=== PATIENT | female | born 1945 | race Caucasian/White ===

== ENCOUNTER 2018-06-28 14:24 | Inpatient (IN) | payer OTHER ==
[2018-06-28] MEDS ORDERED: FUROSEMIDE 40 MG/4 ML VIAL IV ONE (18:00)
[2018-06-28 18:58] LABS: Urine Appearance CLEAR; Urine Bilirubin NEGATIVE (NEG); Urine Blood TRACE (NEG); Urine Color YELLOW; Urine Glucose NEGATIVE (NEG); Urine Protein NEGATIVE (NEG); Urine Specific Gravity 1.015 (1.005-1.030); Urine Urobilinogen 0.2 mg/dL (0.2-1.0)
[2018-06-28] MEDS ORDERED: INFLUENZA VACCINE (for 3y+) 0.5 ML DOSE IMVAC ONE (19:00)
[2018-06-28 19:13] LABS: Urine Microscopic Reflex NO UMIC
[2018-06-28 19:36] LABS: Absolute Lymphocytes (CBC) 3.1 K/uL (0.7-4.9); Absolute Monocytes 0.8 K/uL (0.1-1.3); Basophils % 0.8 % (0-1.3); Eosinophils % 1.5 % (0-4.4); Hematocrit 42.2 % (36.0-45.0); Lymphocytes % 28.1 % (15.3-44.8); MPV 8.5 fL (7.6-11.3); Monocytes % 7.3 % (3.3-12.3); RBC Red Blood Cell Count 4.56 M/uL (3.86-4.86)
[2018-06-28 19:59] LABS: Albumin 3.5 g/dL (3.4-5.0); Bilirubin Total 0.6 mg/dL (0.2-1.0); Potassium 4.2 mmol/L (3.5-5.1); Protein, Total 7.9 g/dL (6.4-8.2)
[2018-06-28] MEDS: ENOXAPARIN 30 MG/0.3 ML SQ SCH (22:08)
[2018-06-29] MEDS ORDERED: ACETAMINOPHEN 500 MG TAB PO PRN ×3 (06:17→17:46)
[2018-06-29] MEDS: LOSARTAN POTASSIUM 50 MG TABLET PO SCH (08:39)
[2018-06-29] MEDS: CARVEDILOL 12.5 MG TAB PO SCH ×2 (10:42→16:43)
[2018-06-29] MEDS: FUROSEMIDE 40 MG TABLET PO SCH (16:42)
[2018-06-29] MEDS ORDERED: ENOXAPARIN 30 MG/0.3 ML SQ ONE (16:50)
[2018-06-29] MEDS ORDERED: FUROSEMIDE 40 MG/4 ML VIAL IV ONE (17:49)
[2018-06-29] MEDS ORDERED: POTASSIUM CL SA 10 MEQ TAB PO ONE (17:50)
[2018-06-29] MEDS: ACETAMINOPHEN 500 MG TAB PO PRN (18:05)
--- NOTE | 2018-06-29 21:15 | HP ---
Date of Admission: 06/28/2018 Chief Complaint: Shortness of breath, swelling of the feet. History Of Present Illness: A 73-year-old female was brought to the office with new onset of swellin g of the feet and shortness of breath as well as orthopnea. She recently had an episode of viral inf ection. The patient had outpatient chest x-ray showed evidence of heart failure. The patient is admitted. N o chest pain, fever, chills, rigors. Past Medical History: Positive for hypertension and morbid obesity. Family History: Hypertension present. Personal History: Nonsmoker. Home Medicines: Toprol and Cozaar. Review of Systems: No history of fever, chills, rigors. Physical Examination: General: Revealed a 73-year-old morbid female, in [id number] respiratory distress. HEENT: Negative. Vital Signs: Normal. Neck: Supple. JVD negative. Chest: Bilateral scattered wheezes and crackles. Heart: Regular. Abdomen: Soft. Extremities: Bilateral pedal edema with erythema secondary to stretching of the skin. Laboratory Data: White count normal. Chest x-ray, pulmonary edema. Assessment: 1.Possible congestive heart failure. 2.Hypertension. Plan: Pending the echocardiogram report. The patient received IV Lasix and carvedilol. After Cardi ology consultation further management will be planned. YAMILEX/PRASHANTH Voice ID: [id number]
[2018-06-29] MEDS: ENOXAPARIN 30 MG/0.3 ML SQ SCH (21:26)
[2018-06-30] MEDS: ACETAMINOPHEN 500 MG TAB PO PRN ×3 (01:20→21:49)
[2018-06-30] MEDS: CARVEDILOL 12.5 MG TAB PO SCH ×2 (06:09→17:33)
[2018-06-30] MEDS: FUROSEMIDE 40 MG TABLET PO SCH (09:07)
[2018-06-30] MEDS: LOSARTAN POTASSIUM 50 MG TABLET PO SCH (09:08)
[2018-06-30] MEDS ORDERED: LOPERAMIDE HCL 2 MG CAPSULE PO PRN (14:36)
[2018-06-30] MEDS ORDERED: FUROSEMIDE 40 MG/4 ML VIAL IV ONE (15:52)
[2018-06-30] MEDS ORDERED: POTASSIUM 25 MEQ EFFERV TAB PO ONE (15:53)
[2018-06-30] MEDS ORDERED: POTASSIUM 25 MEQ EFFERV TAB ONE (17:52)
[2018-06-30] MEDS ORDERED: FUROSEMIDE 40 MG/4 ML VIAL ONE (17:52)
[2018-06-30] MEDS: ENOXAPARIN 30 MG/0.3 ML SQ SCH (20:34)
--- NOTE | 2018-07-01 02:55 | CON ---
Date of Consultation: 06/29/[address] Medrano's service on 06/28/2018. I saw the patient on 06/29/2018. Reason For Consultation: Congestive heart failure. History Of Present Illness: is a 73-year-old white woman who has been fairly healthy ex cept for hypertension. She takes losartan and metoprolol for that. Has had a recent flu episode wit h cough, fever, chills, body aches that has been going on for few days. She came in with PND, orthop peace, pedal edema. Chest x-ray shows CHF. Her BNP was 622. White count was 11,000. She had a marisel l echocardiogram in 2013. The echocardiogram that I read on 06/28/2018 was also within normal limits with normal ejection fraction and maybe some decreased left ventricular compliance that is mild. Th ere was no effusion. Past Medical History: Includes hypertension. Allergies: SHE IS ALLERGIC TO CODEINE AND PENICILLIN. Review of Systems: Negative. Social History: Negative for tobacco, alcohol, or drugs. Family History: Positive for hypertension. Medications: Include losartan and metoprolol. Physical Examination: General: was in no acute distress when I saw her. She has improved as far as her pedal edema is concerned and shortness of breath, but she has still slightly short of breath. She is stil l having some cough but that has improved. Vital Signs: Stable, afebrile. HEENT: Negative. Neck: Supple with no bruit, lymphadenopathy, JVD, or thyromegaly. Chest: Reveals some rales at both bases. Cardiac: Reveals a regular rhythm and rate with an S4 gall op. No murmurs, no rubs. Abdomen: Obese, but normal. Extremities: Revealed 1+ edema to the knees. Diagnostic Data: Listed earlier. She has a negative troponin. Normal kidney function. Impression And Plan: Acute onset of diastolic congestive heart failure, may have been exacerbated by her recent viral illness and her hypertension. I will continue her present regimen. Increase her L asix dose. Continue her metoprolol and losartan. Discussed sodium intake in detail. Consider doing an outpatient Lexiscan to make sure she does not have coronary artery disease. She can go home when ever it is okay with Dr. Medrano. RANJITH/MODL Voice ID: [id number] Report ID: [id number]
--- NOTE | 2018-07-01 03:01 | PN ---
The patient has less swelling. Her lungs have a mild wheezing. However, they sound better. HEENT i s otherwise negative. The patient will receive another dose of IV Lasix and potassium. If she is be tter, she will be discharged tomorrow. YAMILEX/PRASHANTH Voice ID: [id number] Report ID: [id number]
[2018-07-01] MEDS: CARVEDILOL 12.5 MG TAB PO SCH (06:17)
[2018-07-01 07:56] LABS: Potassium 4.1 mmol/L (3.5-5.1)
[2018-07-01] MEDS: ACETAMINOPHEN 500 MG TAB PO PRN (08:40)
[2018-07-01] MEDS: FUROSEMIDE 40 MG TABLET PO SCH (08:41)
[2018-07-01] MEDS: LOSARTAN POTASSIUM 50 MG TABLET PO SCH (08:41)
== END 2018-07-01 10:32 | disposition home or self-care (01) | DRG 293 ==
LOC: 2ND 14:39
PROVIDERS: ADMIT Internal Medicine; ATTEND Internal Medicine
DX: I11.0 Hypertensive heart disease with heart failure (principal); Z88.0 Allergy status to penicillin; I50.33 Acute on chronic diastolic (congestive) heart failure; E66.01 Morbid (severe) obesity due to excess calories
CPT/HCPCS: 36415; 71046; 80048; 80053; 81003; 82274; 83880; 84484; 85025; 87045; 87046; 87177; 87209; 87493; 89055; 93307; J1650; J1940; Q2035

== ENCOUNTER 2020-02-01 20:07 | Emergency (ER) | payer OTHER ==
[2020-02-01 21:07] LABS: Basophils % 0.5 % (0-1.3); Hematocrit 39.3 % (36.0-45.0); Lymphocytes % 27.7 % (15.3-44.8); MPV 8.9 fL (7.6-11.3); RBC Red Blood Cell Count 4.32 M/uL (3.86-4.86)
[2020-02-01] MEDS ORDERED: MORPHINE 4 MG/ML SYR ONE (21:24)
[2020-02-01 21:26] LABS: Albumin 2.7 g/dL (3.4-5.0); Bilirubin Total 0.4 mg/dL (0.2-1.0); Potassium 5.1 mmol/L (3.5-5.1); Protein, Total 7.4 g/dL (6.4-8.2)
[2020-02-01] MEDS ORDERED: ONDANSETRON 4 MG/2 ML VIAL ONE (21:27)
[2020-02-01 22:06] LABS: Blood Morphology Comment NOT SEEN (NOT SEEN); Platelet Estimate ADEQ; Urine White Blood Cell Casts OK
[2020-02-01] MEDS ORDERED: MORPHINE 2 MG/ML SYR ONE (22:23)
[2020-02-01] MEDS ORDERED: DIAZEPAM 10 MG/2 ML INJ SYRINGE ONE (22:24)
[2020-02-01] MEDS ORDERED: HYDROMORPHONE HCL 1 MG/ML INJ ONE (23:16)
[2020-02-02] MEDS ORDERED: HYDROMORPHONE HCL 1 MG/ML INJ ONE ×2 (00:52→04:13)
[2020-02-02] MEDS ORDERED: FUROSEMIDE 20 MG/ 2ML VIAL ONE (01:28)
[2020-02-02] MEDS ORDERED: VANCOMYCIN 1 GM/VIAL ONE (02:25)
[2020-02-02] MEDS ORDERED: NA CHLORIDE 0.9% 250 ML ONE (02:26)
--- NOTE | 2020-02-02 03:00 | ER ---
Nurse's Notes [facility] Name: Maria Teresa Harrison Age: 75 yrs Sex: Female : 1945 Arrival Date: 02/01/2020 Time: 20:11 Bed 13 Private MD: Diagnosis: L1 Compression Fracture;Intractable Pain;Lymphadema Presentation: 01/31 20:17 Chief complaint: EMS states: BIBA FOR LOWER BACK PAIN. WAS GIVEN FENTANYL 50 INITIALLY mt2 AND 4 OF ZOFRAN. ANOTHER 50 OF FENTANYL WAS REPEATED ENROUTE. PT WITH FLORINA LE REDE EVGENY AND SWELLING WELL. Coronavirus screen: Patient denies a cough. Patient denies shortness of breath or difficulty breathing. Patient denies measured and/or subjective temperature greater than 100.4F prior to today's visit. Patient denies travel on a cruise ship or to a country the [facility] currently lists as an affected area. Patient denies contact with known and/or suspected case of COVID-19. Patient instructed to continue to wear a mask when interacting with others. Patient moved to private room, placed in contact and droplet isolation with eye protection until further assessment. Ebola Screen: No symptoms or risks identified at this time. Initial Sepsis Screen: Does the patient meet any 2 criteria? No. Patient's initial sepsis screen is negative. Does the patient have a suspected source of infection? No. Patient's initial sepsis screen is negative. Risk Assessment: Do you want to hurt yourself or someone else? Patient reports no desire to harm self or others. Onset of symptoms was February 01, 2020. 20:17 Method Of Arrival: EMS: [facility] mt2 20:17 Acuity: MILTON 3 mt2 Historical: - Allergies: 20:40 PENICILLINS; mt2 20:40 Hydrocodone-Acetaminophen; mt2 - PMHx: 02/01 04:46 Hypertension; mt2 04:48 Cellulitis; mt2 - Immunization history:: Adult Immunizations up to date. - Social history:: Smoking status: Patient denies any tobacco usage or history of. Patient uses. Screenin/26 20:17 Abuse screen: Denies threats or abuse. Nutritional screening: No deficits noted. Fall mt2 Risk Fall in past 12 months (25 points). 20:40 Tuberculosis screening: No symptoms or risk factors identified. mt2 Assessment: 20:15 Reassessment: Patient screaming out due to low back pain; states unable to move to lp1 void; Verbal order from Provider to insert Fry catheter. 20:30 Reassessment: Patient and/or family updated on plan of care and expected duration. Pain mt2 level reassessed. General: Appears distressed, uncomfortable. Pain: Complains of pain in back, right leg and left leg Pain currently is 10 out of 10 on a pain scale. Neuro: No deficits noted. Cardiovascular: No deficits noted. Respiratory: No deficits noted. GI: Abdomen is round distended. 21:00 Reassessment: Patient and/or family updated on plan of care and expected duration. Pain mt2 level reassessed. Patient states symptoms have not improved. General: Appears distressed, uncomfortable, Behavior is restless. Pain: Complains of pain in back, right leg and left leg Pain currently is 10 out of 10 on a pain scale. : No deficits noted. EENT: No deficits noted. Derm: Wound noted lateral aspect of right calf, right calf, medial aspect of right calf and right jean Wound is WEEPING STASIS ULCERS. Musculoskeletal: UNABLE TO MOVE Tenderness present in back Reports pain in back. 22:00 Reassessment: Patient and/or family updated on plan of care and expected duration. Pain mt2 level reassessed. PROVIDED NOTIFIED OF PATIENTS UNCONTROLLED PAIN Patient states symptoms have not improved. General: Appears distressed, uncomfortable, Behavior is restless. 23:00 Reassessment: Patient and/or family updated on plan of care and expected duration. Pain mt2 level reassessed. Patient states symptoms have not improved. General: Appears uncomfortable, Behavior is cooperative. 02/01 00:00 Reassessment: Patient and/or family updated on plan of care and expected duration. Pain mt2 level reassessed. PATIENT MEDICATED WITH VARIOUS ANALGESIC. PT CONTINUES TO STATES THAT THERE IS NO RELIEF. PROVIDER AWARE. Patient states symptoms have not improved. 01:00 Reassessment: Patient and/or family updated on plan of care and expected duration. Pain mt2 level reassessed. MD NOTIFIED OF PATIENT'S UNCONTROLLED PAIN Patient states symptoms have not improved. 02:00 Reassessment: Patient and/or family updated on plan of care and expected duration. Pain mt2 level reassessed. Patient states symptoms have not improved. General: Appears uncomfortable, Behavior is restless. 03:00 Reassessment: Patient and/or family updated on plan of care and expected duration. Pain mt2 level reassessed. PROVIDER NOTIFIED OF PATIENT REQUEST FOR ANALGESICS Patient states symptoms have not improved. General: Appears uncomfortable, Behavior is restless. 04:00 Reassessment: TRANSFER CREW AT BEDSIDE TO TRANSPORT PT TO [facility]. mt2 General: Appears uncomfortable, Behavior is restless. Vital Signs: 01/31 20:17 BP 133 / 85; Pulse 126; Resp 20; Pulse Ox 95% on R/A; Pain 10/10; mt2 21:00 Weight 176.9 kg; Height 5 ft. 7 in. (170.18 cm); mt2 21:01 BP 133 / 69; Pulse 79; Resp 19; Temp 97.8(TE); Pulse Ox 94% ; mt2 22:00 BP 156 / 69; Pulse 91; Resp 19; Pulse Ox 95% on 2 lpm NC; Pain 10/10; mt2 23:00 BP 142 / 71; Pulse 70; Resp 17; Temp 98.2(TE); Pulse Ox 96% on 2 lpm NC; Pain 10/10; mt2 02/01 00:00 BP 129 / 71; Pulse 87; Resp 19; Pulse Ox 96% on 2 lpm NC; Pain 10/10; mt2 01:00 BP 129 / 79; Pulse 81; Resp 18; Pulse Ox 96% on 3 lpm NC; Pain 10/10; mt2 02:00 BP 119 / 67; Pulse 81; Resp 17; Temp 97.2; Pulse Ox 96% on 3 lpm NC; Pain 10/10; mt2 03:00 BP 124 / 66; Pulse 91; Resp 19; Pulse Ox 97% on 3 lpm NC; Pain 10/10; mt2 04:00 BP 123 / 71; Pulse 97; Resp 22; Temp 97.0(TE); Pulse Ox 96% on 3 lpm NC; Pain 10/10; mt2 01/31 21:00 Body Mass Index 61.08 (176.90 kg, 170.18 cm) mt2 NIH Stroke Scale Scores: 01/31 20:17 NIHSS Score: 0 mt2 ED Course: 20:11 Patient arrived in ED. lp1 20:15 Scottie Pacheco PA is PHCP. [facility] 20:15 Jt Dunaway MD is Attending Physician. [facility] 20:17 Lisha Parkinson, SHREYAS is Primary Nurse. mt2 20:20 Triage completed. mt2 20:30 Fry cath inserted, using sterile technique, 16 Fr., by va, balloon inflated, to lp1 gravity drainage, urine specimen collected. 20:30 Maintain EMS IV. Dressing intact. Good blood return noted. Site clean \T\ dry. Gauge \T\ mt 2 site: 22 G LEFT AC. 20:30 Patient has correct armband on for positive identification. Bed in low position. Call mt2 light in reach. Side rails up X 1. 20:40 Arm band placed on left wrist. mt2 22:14 Ultrasound completed. Patient tolerated well. Notified JUNIOR LINUX ADMINISTRATOR/TAYLOR sheikh. sg3 22:56 US Extremity Venous W Compression Florina In Process Unspecified. EDMS 02/01 00:34 CT Lumbar Spine Wo Con In Process Unspecified. EDMS 04:50 No provider procedures requiring assistance completed. Patient transferred, IV remains mt2 in place. Administered Medications: 01/31 21:22 Drug: morphine 4 mg Route: IVP; Site: left antecubital; mt2 21:50 Follow up: Response: No adverse reaction; Pain is unchanged, physician notified mt2 21:23 Drug: Zofran (Ondansetron) 4 mg Route: IVP; Site: left antecubital; mt2 21:50 Follow up: Response: No adverse reaction; Nausea is decreased mt2 22:20 Drug: morphine 2 mg Route: IVP; Site: left forearm; mt2 22:50 Follow up: Response: No adverse reaction; Pain is unchanged, physician notified mt2 22:21 Drug: Valium 2 mg Route: IVP; Site: left antecubital; mt2 22:50 Follow up: Response: No adverse reaction; Pain is unchanged, physician notified mt2 22:55 Drug: Dilaudid 1 mg Route: IVP; Site: left antecubital; mt2 23:20 Follow up: Response: No adverse reaction; Pain is unchanged, physician notified mt2 02/01 00:40 Drug: Dilaudid 1 mg Route: IVP; Site: left antecubital; mt2 01:00 Follow up: Response: No adverse reaction; Pain is unchanged, physician notified mt2 01:23 Drug: Lasix 20 mg Route: IVP; Site: left antecubital; mt2 04:38 Follow up: Response: No adverse reaction mt2 02:33 Drug: vancoMYCIN 1 grams Route: IVPB; Infused Over: 2 hrs; Site: left antecubital; mt2 04:39 Follow up: Response: No adverse reaction; IV Status: Completed infusion; IV Intake: mt2 250ml 04:08 Drug: Dilaudid 1 mg Route: IVP; Site: left antecubital; mt2 04:39 Follow up: Response: No adverse reaction; Pain is unchanged, physician notified mt2 Intake: 04:39 IV: 250ml; Total: 250ml. mt2 Outcome: 02:59 ER care complete, transfer ordered by . cristina 04:50 Transferred by ground EMS to [facility]. mt2 04:50 Condition: unchanged 04:50 Instructed on the need for transfer. 04:51 Patient left the ED. mt2 NIH Stroke Scale - NIH Stroke Score Date: 02/01/2020 Time: 20:17 Total Score = 0 1a. Level of Consciousness (LOC) - 0(Alert) 1b. Level of Consciousness (LOC) (Year \T\ Age) - 0(Both) 1c. LOC Commands (Open \T\ Closes Eyes/University Relations Vice President) - 0(Both) 2. Best Gaze (Lateral Gaze Paresis) - 0(Normal) 3. Visual Field Loss - 0(No visual loss) 4. Facial Palsy - 0(Normal) 5a. Left Arm: Motor (10-second hold) - 0(No drift) 5b. Right Arm: Motor (10-second hold) - 0(No drift) 6a. Left Leg: Motor (5-second hold - always test supine) - 0(No drift) 6b. Right Leg: Motor (5-second hold - always test supine) - 0(No drift) 7. Limb Ataxia (finger/nose \T\ heel/jean - test with eyes open) - 0(Absent) 8. Sensory Loss (pinprick arms/legs/face) - 0(Normal) 9. Best Language: Aphasia (description/naming/reading) - 0(No aphasia) 10. Dysarthria (speech clarity - read or repeat words) - 0(Normal) 11. Extinction and Inattention (visual/tactile/auditory/spatial/personal) - 0(No abnormality) Initials: mt2 Signatures: Dispatcher [employer] Scottie Larios PA PA jmm Pena, Laura RN RN lp1 Olimpia Neal 3 Lisha Parkinson RN RN mt2
--- NOTE | 2020-02-02 03:00 | EDPHYS ---
[facility] Name: Maria Teresa Harrison Age: 75 yrs Sex: Female : 1945 Arrival Date: 02/01/2020 Time: 20:11 Bed 13 Private MD: ED Physician Jt Dunaway HPI: 01/31 20:33 This 75 yrs old Female presents to ER via EMS with complaints of Low Back jmm Pain. 20:33 The patient presents with pain that is chronic, with no known mechanism of injury. jmm Onset: The symptoms/episode began/occurred gradually, 2 week(s) ago. The pain does not radiate. Associated signs and symptoms: Pertinent negatives: abdominal pain, chest pain, constipation, hematuria, incontinence, numbness, tingling, urinary retention, vomiting, weakness. This is a 75 year old female with a history of htn, lymphadema that presents to the ED with complaints of lower extremity swelling and lower back pain. Patient states she had an initial fall this past september with subsequent lower back pain. Patient denies any numbness or incontinence. Beginning 2 weeks ago patient states her lower back pain intensified. Patient states she has been unable to walk due to the pain today. . Historical: - Allergies: 20:40 PENICILLINS; mt2 20:40 Hydrocodone-Acetaminophen; mt2 - PMHx: 02/01 04:46 Hypertension; mt2 04:48 Cellulitis; mt2 - Immunization history:: Adult Immunizations up to date. - Social history:: Smoking status: Patient denies any tobacco usage or history of. Patient uses. ROS: 01/31 20:33 Constitutional: Negative for fever, chills, and weight loss, Cardiovascular: Negative jmm for chest pain, palpitations, and edema, Respiratory: Negative for shortness of breath, cough, wheezing, and pleuritic chest pain. Back: Positive for pain with movement. MS/extremity: Positive for erythema, swelling. All other systems are negative. Exam: 20:33 Head/Face: atraumatic. jmm 20:33 Eyes: EOMI, no conjunctival erythema appreciated ENT: Moist Mucus Membranes Neck: Trachea midline, Supple Chest/axilla: Normal chest wall appearance and motion. Cardiovascular: Regular rate and rhythm. No edema appreciated Respiratory: Normal respirations, no respiratory distress appreciated 20:33 Constitutional: The patient appears alert, awake, in obvious pain. 20:33 Abdomen/GI: Inspection: obese Palpation: abdomen is soft and non-tender, in all quadrants. 20:33 Back: pain, that is severe, of the left low back, left mid back, right mid back and right low back. 20:33 Musculoskeletal/extremity: swelling and induration noted bilaterally, weeping appreciated, TTP bilaterally. 20:33 Skin: Appearance: Color: normal in color. 20:33 Neuro: Orientation: is normal, Mentation: is normal, Memory: is normal, Motor: is normal. 20:33 Psych: Behavior/mood is pleasant, cooperative, anxious. Vital Signs: 20:17 BP 133 / 85; Pulse 126; Resp 20; Pulse Ox 95% on R/A; Pain 10/10; mt2 21:00 Weight 176.9 kg; Height 5 ft. 7 in. (170.18 cm); mt2 21:01 BP 133 / 69; Pulse 79; Resp 19; Temp 97.8(TE); Pulse Ox 94% ; mt2 22:00 BP 156 / 69; Pulse 91; Resp 19; Pulse Ox 95% on 2 lpm NC; Pain 10/10; mt2 23:00 BP 142 / 71; Pulse 70; Resp 17; Temp 98.2(TE); Pulse Ox 96% on 2 lpm NC; Pain 10/10; mt2 02/01 00:00 BP 129 / 71; Pulse 87; Resp 19; Pulse Ox 96% on 2 lpm NC; Pain 10/10; mt2 01:00 BP 129 / 79; Pulse 81; Resp 18; Pulse Ox 96% on 3 lpm NC; Pain 10/10; mt2 02:00 BP 119 / 67; Pulse 81; Resp 17; Temp 97.2; Pulse Ox 96% on 3 lpm NC; Pain 10/10; mt2 03:00 BP 124 / 66; Pulse 91; Resp 19; Pulse Ox 97% on 3 lpm NC; Pain 10/10; mt2 04:00 BP 123 / 71; Pulse 97; Resp 22; Temp 97.0(TE); Pulse Ox 96% on 3 lpm NC; Pain 10/10; mt2 01/31 21:00 Body Mass Index 61.08 (176.90 kg, 170.18 cm) mt2 NIH Stroke Scale Scores: 07/26 20:17 NIHSS Score: 0 mt2 MDM: 20:34 Patient medically screened. [facility] 02/01 02:07 Data reviewed: vital signs, nurses notes. [facility] 02:56 Data reviewed: lab test result(s), radiologic studies, CT scan. Counseling: I had a [facility] detailed discussion with the patient and/or guardian regarding: the historical points, exam findings, and any diagnostic results supporting the discharge/admit diagnosis, lab results, radiology results, the need to transfer to another facility, for higher level of care, [facility] does not immediately have the required specialist. ED course: I discussed the patient with Dr. Abdul whom advised to transfer the patient. I discussed the patient with Neurology and internal medicine whom accepted admission. . 01/31 20:36 Order name: CBC with Diff; Complete Time: 22:12 [facility] 01/31 20:36 Order name: CMP; Complete Time: 21:34 [facility] 01/31 20:36 Order name: Procalcitonin; Complete Time: 21:34 [facility] 01/31 20:36 Order name: Lactate; Complete Time: 21:34 [facility] 01/31 20:36 Order name: Blood Culture Adult (2) [facility] 01/31 22:06 Order name: CBC Smear Scan; Complete Time: 22:12 [facility] 01/31 20:32 Order name: US Extremity Venous W Compression Baljit [facility] 01/31 23:24 Order name: CT Lumbar Spine Wo Con [facility] Administered Medications: 01/31 21:22 Drug: morphine 4 mg Route: IVP; Site: left antecubital; mt2 21:50 Follow up: Response: No adverse reaction; Pain is unchanged, physician notified mt2 21:23 Drug: Zofran (Ondansetron) 4 mg Route: IVP; Site: left antecubital; mt2 21:50 Follow up: Response: No adverse reaction; Nausea is decreased mt2 22:20 Drug: morphine 2 mg Route: IVP; Site: left forearm; mt2 22:50 Follow up: Response: No adverse reaction; Pain is unchanged, physician notified mt2 22:21 Drug: Valium 2 mg Route: IVP; Site: left antecubital; mt2 22:50 Follow up: Response: No adverse reaction; Pain is unchanged, physician notified mt2 22:55 Drug: Dilaudid 1 mg Route: IVP; Site: left antecubital; mt2 23:20 Follow up: Response: No adverse reaction; Pain is unchanged, physician notified mt2 02/01 00:40 Drug: Dilaudid 1 mg Route: IVP; Site: left antecubital; mt2 01:00 Follow up: Response: No adverse reaction; Pain is unchanged, physician notified mt2 01:23 Drug: Lasix 20 mg Route: IVP; Site: left antecubital; mt2 04:38 Follow up: Response: No adverse reaction mt2 02:33 Drug: vancoMYCIN 1 grams Route: IVPB; Infused Over: 2 hrs; Site: left antecubital; mt2 04:39 Follow up: Response: No adverse reaction; IV Status: Completed infusion; IV Intake: mt2 250ml 04:08 Drug: Dilaudid 1 mg Route: IVP; Site: left antecubital; mt2 04:39 Follow up: Response: No adverse reaction; Pain is unchanged, physician notified mt2 Disposition: 06:08 Co-signature as Attending Physician, Jt Dunaway MD I agree with the assessment and tw4 plan of care. Disposition: 02/02/20 02:59 Transfer ordered to [facility]. Diagnosis are L1 Compression Fracture, Intractable Pain, Lymphadema. - Reason for transfer: Higher level of care. - Accepting physician is Dr. Marques. - Condition is Stable. - Problem is new. - Symptoms have improved. NIH Stroke Scale - NIH Stroke Score Date: 02/01/2020 Time: 20:17 Total Score = 0 1a. Level of Consciousness (LOC) - 0(Alert) 1b. Level of Consciousness (LOC) (Year \T\ Age) - 0(Both) 1c. LOC Commands (Open \T\ Closes Eyes/Terrestrial Ecologist) - 0(Both) 2. Best Gaze (Lateral Gaze Paresis) - 0(Normal) 3. Visual Field Loss - 0(No visual loss) 4. Facial Palsy - 0(Normal) 5a. Left Arm: Motor (10-second hold) - 0(No drift) 5b. Right Arm: Motor (10-second hold) - 0(No drift) 6a. Left Leg: Motor (5-second hold - always test supine) - 0(No drift) 6b. Right Leg: Motor (5-second hold - always test supine) - 0(No drift) 7. Limb Ataxia (finger/nose \T\ heel/jean - test with eyes open) - 0(Absent) 8. Sensory Loss (pinprick arms/legs/face) - 0(Normal) 9. Best Language: Aphasia (description/naming/reading) - 0(No aphasia) 10. Dysarthria (speech clarity - read or repeat words) - 0(Normal) 11. Extinction and Inattention (visual/tactile/auditory/spatial/personal) - 0(No abnormality) Initials: [facility] Signatures: Dispatcher [employer] EDMS Scottie Pacheco PA PA jmm Wadley, Terrence, MD MD tw4 Lisha Parkinson RN RN mt2 Corrections: (The following items were deleted from the chart) 04:51 02:59 02/02/2020 02:59 Transfer ordered to [address] Diagnosis is L1 Compression Fracture; Intractable Pain; Lymphadema. Reason for transfer: Higher level of care. Accepting physician is Dr. Marques. Condition is Stable. Problem is new. Symptoms have improved. cristina
[2020-02-02 05:11] VITALS: BP 123/71; TEMP 97; O2SAT 96
--- NOTE | 2020-02-02 08:03 | RAD REPORT ---
EXAM DESCRIPTION: US - Extrem Venous W Compress Baljit - 02/01/2020 10:56 pm CLINICAL HISTORY: SWELLING, bilateral leg pain Preliminary findings provided at the time of the study. COMPARISON: None. TECHNIQUE: Real-time sonographic evaluation of the bilateral lower extremity common femoral, superfi cial femoral, popliteal and posterior tibial veins was performed. FINDINGS: Normal compressibility, flow augmentation, phasic flow and spontaneous flow are identified in the left and right lower extremity common femoral, superficial femoral, popliteal and posterior t ibial veins. No intraluminal filling defects seen. IMPRESSION: No DVT in either lower extremity.
--- NOTE | 2020-02-02 09:42 | RAD REPORT ---
EXAM DESCRIPTION: CT - Spine Lumbar Wo Con - 02/02/2020 12:34 am CLINICAL HISTORY: 75-year-old female status post fall in October landed on tailbone and has been compl aining of low back pain since. She has chronic lymphedema and both legs with cellulitis. TECHNIQUE: Multiple high-resolution thin axial CT images were performed through the lumbar spine fol lowed by sagittal and coronal reconstructed images. The CT study is performed according to ALARA (as low as reasonably achievable) or ALARA/IMAGE GENTLY, with automatic adjustment of mA and/or kV accord ing to patient size. Performed on: 02/01/2020 at 11: 56 PM COMPARISON: No prior studies were available for comparison. FINDINGS: There appear to be five lumbar type vertebral bodies. There is slight loss of height of th e L1 vertebral body due to an acute to subacute compression fracture along the inferior endplate of L 1. There is approximately 20% loss of height of L1. The superior endplate appears intact. There is no evidence of retropulsion of bone into the spinal canal. The remainder of the lumbar vertebrae are normal in height. There is normal alignment of the lumbar v ertebral bodies. The disc spaces are well preserved in height. There are vacuum discs at L1-L2 and L5 -S1. No focal lytic or sclerotic bone lesions are identified. There is normal alignment of the facet joints on the parasagittal images. Bone mineralization is grossly within normal limits. There is mild L4-L5 canal stenosis secondary to a diffuse disc osteophyte complex and bilateral facet joint arthropathy. There is no significant neural foraminal stenosis. Incidentally noted, there is a 2.8 x 2.6 cm left adrenal soft tissue mass lesion measuring approximat frantz 18 Hounsfield units. This likely represents an incidental adrenal adenoma. IMPRESSION: 1. Acute to subacute mild inferior endplate compression fracture of L1 with approximatel y 20% loss of height. 2. Mild degenerative changes of the lumbar spine as described above. 3. Incidentally noted is an approximately 2.8 x 2.6 cm low density left adrenal soft tissue mass lesi on likely representing an adrenal adenoma. A non-emergent adrenal washout CT or chemical shift MRI ar e recommended for further characterization These critical findings were discussed with TAYLOR Boyce on 02/02/2020 at 1: 10 AM central time Electronically signed by: Tatiana Osuna DO 02/02/2020 1:19 AM CDT Due to temporary technical issues with the PACS/Fluency reporting system, reports are being signed by the in house radiologist without review as a courtesy to ensure prompt reporting. The interpreting r adiologist is fully responsible for the content of the report.
== END 2020-02-02 04:51 | disposition short-term general hospital (02) ==
LOC: ER 20:07
DX: S32.019A Unspecified fracture of first lumbar vertebra, initial encounter for closed fracture (principal); I89.0 Lymphedema, not elsewhere classified; G89.4 Chronic pain syndrome; I10 Essential (primary) hypertension; Z88.0 Allergy status to penicillin; Z88.5 Allergy status to narcotic agent
CPT/HCPCS: 87040; 85025; 36415; 87205; 83605; 80053; 84145; 72131; 93970; 51702; 99285; J1940; J3360; J3370; J2270; J1170 ×3; J7050; J2405; 96365; 96366; 96375

== ENCOUNTER 2022-05-25 13:19 | Inpatient (IN) | payer OTHER ==
--- NOTE | 2022-05-25 15:07 | RAD REPORT ---
EXAM DESCRIPTION: RAD - Chest Single View - 05/25/2022 2:59 pm CLINICAL HISTORY: COUGH COMPARISON: Chest Pa And Lat (2 Views) dated 06/28/2018 FINDINGS: Lines: None. Lungs: No evidence of edema or pneumonia. Pleural: No significant pleural effusions or pneumothorax. Cardiac: Cardiomegaly. Mediastinum: Within normal limits. Bones: No acute fractures. Other: None IMPRESSION: No acute cardiopulmonary disease.
--- NOTE | 2022-05-25 15:38 | RAD REPORT ---
EXAM DESCRIPTION: US - Extrem Venous W Compress Baljit - 05/25/2022 3:30 pm CLINICAL HISTORY: PAIN COMPARISON: Extrem Venous W Compress Baljit dated 02/01/2020 TECHNIQUE: Real-time sonographic evaluation of the lower extremity deep venous systems was performed using color Doppler, grayscale, and compression. FINDINGS: Bilateral lower extremities. Normal compressibility, flow augmentation, phasic flow and spontaneous flow is identified in both the left and right lower extremity deep venous systems. No intraluminal filling defects seen. IMPRESSION: No DVT in either lower extremity.
[2022-05-25 17:15] LABS: Absolute Lymphocytes (CBC) 3.7 K/uL (0.7-4.9); Hematocrit 39.9 % (36.0-45.0); Lymphocytes % 32.6 % (15.3-44.8); MCV 92.8 fL (80-100); MPV 8.5 fL (7.6-11.3)
[2022-05-25 17:16] LABS: Protime INR 1.07
[2022-05-25 17:33] LABS: Albumin 3.1 g/dL (3.4-5.0); Bilirubin Direct 0.1 mg/dL (0-0.2); Bilirubin Total 0.4 mg/dL (0.2-1.0); Magnesium 2.6 mg/dL (1.8-2.4); Potassium 4.5 mmol/L (3.5-5.1); Protein, Total 7.8 g/dL (6.4-8.2); Troponin High Sensitivity 18.7 pg/mL (<58.9)
[2022-05-25] MEDS ORDERED: NA CHLORIDE 0.9% 100 ML IV ONE ×2 (17:45→23:31)
[2022-05-25] MEDS ORDERED: Meropenem 1000 MG/VIAL IV ONE (17:45)
[2022-05-25] MEDS ORDERED: NA CHLORIDE 0.9% 1,000 ML ONE (17:45)
--- NOTE | 2022-05-25 17:59 | EDPHYS ---
Physician Documentation [facility] Name: Maria Teresa Harrison Age: 77 yrs Sex: Female : 1945 Arrival Date: 05/25/2022 Time: 13:26 Bed 18 Private MD: Yan Parker E ED Physician Walter Suarez HPI: 05/25 17:50 This 77 yrs old Female presents to ER via Wheelchair with complaints of Skin dennys Sore(s), Leg Swelling. 17:50 The patient presents with cellulitis of the right leg and left leg. Description: dennys draining, erythematous. Onset: The symptoms/episode began/occurred 2 week(s) ago. Possible cause(s): venous stasis. 17:51 Associated signs and symptoms: Pertinent positives: drainage, erythema. The patient dennys presents with pain, swelling, tenderness. The complaints affect the right leg and left leg. Modifying factors: The symptoms are alleviated by elevating leg, remaining still, the symptoms are aggravated by movement, weight bearing. hx of morbid obesity, long standing venous stasis. Modifying factors: the symptoms are alleviated by remaining still, repositioning , the symptoms are aggravated by movement, walking, pressure. Treatment prior to arrival includes: no previous treatment. Severity of symptoms: At their worst the symptoms were moderate, in the emergency department the symptoms are actually worse, mildly. Historical: - Allergies: 13:41 Hydrocodone-Acetaminophen; kr3 13:41 PENICILLINS; kr3 13:41 Levaquin; kr3 - PMHx: 13:41 Cellulitis; Hypertension; Diabetes mellitus; kr3 - PSHx: 13:41 Total abdominal hysterectomy; ovarian cancer; wrist sx; hearth cath; kr3 - Immunization history:: Adult Immunizations not up to date. - Social history:: Smoking status: Patient denies any tobacco usage or history of. - Family history:: not pertinent. ROS: 17:51 Constitutional: Negative for fever, chills, and weight loss, Eyes: Negative for injury, dennys pain, redness, and discharge, ENT: Negative for injury, pain, and discharge, Neck: Negative for injury, pain, and swelling, Cardiovascular: Negative for chest pain, palpitations, and edema, Respiratory: Negative for shortness of breath, cough, wheezing, and pleuritic chest pain, Abdomen/GI: Negative for abdominal pain, nausea, vomiting, diarrhea, and constipation, Back: Negative for injury and pain, : Negative for injury, bleeding, discharge, and swelling, Neuro: Negative for headache, weakness, numbness, tingling, and seizure, Psych: Negative for depression, anxiety, suicide ideation, homicidal ideation, and hallucinations, Allergy/Immunology: Negative for hives, rash, and allergies, Endocrine: Negative for neck swelling, polydipsia, polyuria, polyphagia, and marked weight changes, Hematologic/Lymphatic: Negative for swollen nodes, abnormal bleeding, and unusual bruising. 17:51 : Positive for 17:51 MS/extremity: Positive for decreased range of motion, erythema, swelling, tenderness, warmth, of the right leg and left leg. Exam: 17:51 Constitutional: This is a well developed, well nourished patient who is awake, alert, dennys and in no acute distress. Head/Face: Normocephalic, atraumatic. Eyes: Pupils equal round and reactive to light, extra-ocular motions intact. Lids and lashes normal. Conjunctiva and sclera are non-icteric and not injected. Cornea within normal limits. Periorbital areas with no swelling, redness, or edema. ENT: Nares patent. No nasal discharge, no septal abnormalities noted. Tympanic membranes are normal and external auditory canals are clear. Oropharynx with no redness, swelling, or masses, exudates, or evidence of obstruction, uvula midline. Mucous membranes moist. Neck: Trachea midline, no thyromegaly or masses palpated, and no cervical lymphadenopathy. Supple, full range of motion without nuchal rigidity, or vertebral point tenderness. No Meningismus. Chest/axilla: Normal chest wall appearance and motion. Nontender with no deformity. No lesions are appreciated. Cardiovascular: Regular rate and rhythm with a normal S1 and S2. No gallops, murmurs, or rubs. Normal PMI, no JVD. No pulse deficits. Respiratory: Lungs have equal breath sounds bilaterally, clear to auscultation and percussion. No rales, rhonchi or wheezes noted. No increased work of breathing, no retractions or nasal flaring. Abdomen/GI: Soft, non-tender, with normal bowel sounds. No distension or tympany. No guarding or rebound. No evidence of tenderness throughout. Back: No spinal tenderness. No costovertebral tenderness. Full range of motion. Skin: Warm, dry with normal turgor. Normal color with no rashes, no lesions, and no evidence of cellulitis. Neuro: Awake and alert, GCS 15, oriented to person, place, time, and situation. Cranial nerves II-XII grossly intact. Motor strength 5/5 in all extremities. Sensory grossly intact. Cerebellar exam normal. Normal gait. Psych: Awake, alert, with orientation to person, place and time. Behavior, mood, and affect are within normal limits. 17:51 Musculoskeletal/extremity: ROM: full active range of motion, full passive range of motion, Circulation is intact in all extremities. Severe pain noted. Compartment Syndrome exam of affected extremity: is normal. DVT Exam: negative Homans' sign noted on exam, no appreciated bluish discoloration, pain, swelling, tenderness, erythema, increased warmth, that is moderate, of the left leg. 17:51 Skin: cellulitis, that is mild, that is moderate, induration, that is moderate is noted, located on the left lateral ankle, lateral aspect of left foot, left Achilles, left heel, medial aspect of left calf, left medial ankle, medial aspect of left foot, left jean, anterior aspect of left ankle and dorsum of left foot. 18:23 ECG was reviewed by the Attending Physician. [facility] Vital Signs: 13:36 BP 127 / 66; Pulse 92; Resp 22; Temp 97.5(TE); Pulse Ox 98% on R/A; Weight 146.51 kg; kr3 Height 5 ft. 8 in. (172.72 cm); Pain 5/10; 19:57 Weight 163.7 kg; vc1 20:00 BP 132 / 68; Pulse 99; Resp 24; Pulse Ox 99% ; vc1 21:09 BP 121 / 79; Pulse 106; Resp 17; Pulse Ox 97% ; vc1 19:57 Body Mass Index 54.87 (163.70 kg, 172.72 cm) vc1 MDM: 14:39 Patient medically screened. [facility] 17:55 Differential diagnosis: cellulitis, abrasion, tendonitis. Data reviewed: vital signs, [facility] nurses notes, lab test result(s), EKG, radiologic studies, doppler, plain films. Data interpreted: youth nutritional monitor: rate is 92 beats/min, rhythm is regular, Pulse oximetry: on room air is 98 %. Test interpretation: by ED physician or midlevel provider: ECG, plain radiologic studies. Counseling: I had a detailed discussion with the patient and/or guardian regarding: the historical points, exam findings, and any diagnostic results supporting the discharge/admit diagnosis, lab results, radiology results, the need for further work-up and treatment in the hospital. 05/25 14:43 Order name: Basic Metabolic Panel; Complete Time: 17:[address] [facility] 05/25 14:43 Order name: CBC with Diff; Complete Time: 17:[address] [facility] 05/25 14:43 Order name: LFT's; Complete Time: 17:[address] [facility] 05/25 14:43 Order name: Magnesium; Complete Time: 17:[address] [facility] 05/25 14:43 Order name: NT PRO-BNP; Complete Time: 17:47 05/25 14:43 Order name: PT-INR; Complete Time: 17:[address] [facility] 05/25 14:43 Order name: Troponin HS; Complete Time: 17:[address] [facility] 05/25 14:43 Order name: XRAY Chest (1 view); Complete Time: 17:[address] [facility] 05/25 14:43 Order name: Lipase; Complete Time: 17:[address] [facility] 05/25 14:43 Order name: Urine Microscopic Only 05/25 14:43 Order name: Lactate w/ 2H reflex if indic.; Complete Time: 17:[address] [facility] 05/25 14:43 Order name: Blood Culture Adult (2) 05/25 17:23 Order name: SARS RAPID; Complete Time: 19:57 05/25 18:19 Order name: TSH; Complete Time: 19:[address] [facility] 05/25 14:43 Order name: EKG; Complete Time: 14:43 05/25 14:43 Order name: Cardiac monitoring; Complete Time: 18:[address] [facility] 05/25 14:43 Order name: EKG - Nurse/Tech; Complete Time: 18:16 05/25 14:43 Order name: IV Saline Lock; Complete Time: 16:58 05/25 14:43 Order name: Labs collected and sent; Complete Time: 16:58 05/25 14:43 Order name: O2 Per Protocol; Complete Time: 17:40 05/25 14:43 Order name: O2 Sat Monitoring; Complete Time: 17:40 05/25 14:43 Order name: US Extremity Venous W Compression Baljit; Complete Time: 17:05 dennys 05/25 17:50 Order name: CT Stone Protocol dennys 05/25 20:48 Order name: CT EDMS EC:23 Rate is 97 beats/min. Rhythm is irregularly irregular. QRS Cebolla is Normal. RI interval dennys is normal. QRS interval is normal. QT interval is normal. No Q waves. T waves are Normal. No ST changes noted. Clinical impression: Atrial Fibrillation and No evidence of ischemia. Interpreted by me. Reviewed by me. Administered Medications: 17:58 Drug: NS 0.9% 1000 ml Route: IV; Rate: 125 ml/hr; Site: left antecubital; tp1 17:58 Drug: Meropenem 1 grams Route: IV; Rate: per protocol; Site: left antecubital; tp1 20:16 Drug: Bactroban (mupirocin) Ointment 2 % 1 application Route: Topical; Site: wound; vc1 20:59 Drug: vancoMYCIN 1.5 grams {Note: Not given by previous nurse.} Route: IVPB; Rate: vc1 calculated rate; Site: left antecubital; 20:59 Drug: Lovenox (enoxaparin) 40 mg Route: Sub-Q; Site: left lower abdomen; vc1 Disposition Summary: 05/25/22 17:58 Hospitalization Ordered Hospitalization Status: Inpatient Admission dennys [facility] dennys Condition: Stable dennys Problem: new dennys Symptoms: have improved dennys Bed/Room Type: Standard dennys Provider: Olaf Mccurdy(05/25/22 17:59) la1 Room Assignment: 401(05/25/22 21:06) Diagnosis - Cellulitis and acute lymphangitis of other parts of limb - bilateral lower dennys extremities - Acute kidney failure, unspecified - on chronic dennys - Type 1 diabetes mellitus with hyperglycemia dennys - Morbid (severe) obesity due to excess calories dennys - Persistent atrial fibrillation dennys Forms: - Medication Reconciliation Form dennys - SBAR form dennys Signatures: Dispatcher [employer] EDMS Walter Suarez MD MD cha Attema, Lee, RETAIL POS SPECIALIST-C RETAIL POS SPECIALIST-Cla1 Yashira Melara RN RN cg Maria Victoria Ball RN RN tp1 Crystal Cisse RN RN vc1 Jenniffer Eaton RN RN kr3 Corrections: (The following items were deleted from the chart) 17:58 Yrn Sue cha la1 21:06 17:58 dennys montero
--- NOTE | 2022-05-25 17:59 | ER ---
Nurse's Notes [facility] Name: Maria Teresa Harrison Age: 77 yrs Sex: Female : 1945 Arrival Date: 05/25/2022 Time: 13:26 Bed 18 Private MD: Yan Parker E Diagnosis: Cellulitis and acute lymphangitis of other parts of limb-bilateral lower extremities;Acute kidney failure, unspecified-on chronic;Type 1 diabetes mellitus with hyperglycemia;Morbid (severe) obesity due to excess calories;Persistent atrial fibrillation Presentation: 05/25 13:36 Chief complaint: Patient states: pressure sores on buttock, cellulitis on bilateral kr3 lower extremities. Her PCP retired and she has not found another Dr. and she feel like someone needs to see these wounds. Coronavirus screen: Vaccine status: Patient reports receiving the 2nd dose of the covid vaccine. Client denies travel out of the [place] in the last 14 days. Ebola Screen: Patient denies travel to an Ebola-affected area in the 21 days before illness onset. Initial Sepsis Screen: Does the patient meet any 2 criteria? No. Patient's initial sepsis screen is negative. Does the patient have a suspected source of infection? Yes: Skin breakdown/wound. Risk Assessment: Do you want to hurt yourself or someone else? Patient reports no desire to harm self or others. Onset of symptoms is unknown. 13:36 Method Of Arrival: Wheelchair kr3 13:36 Acuity: MILTON 3 kr3 Triage Assessment: 13:45 General: Appears in no apparent distress. comfortable, Behavior is calm, cooperative, kr3 appropriate for age. Pain: Complains of pain in left heel. Historical: - Allergies: 13:41 Hydrocodone-Acetaminophen; kr3 13:41 PENICILLINS; kr3 13:41 Levaquin; kr3 - PMHx: 13:41 Cellulitis; Hypertension; Diabetes mellitus; kr3 - PSHx: 13:41 Total abdominal hysterectomy; ovarian cancer; wrist sx; hearth cath; kr3 - Immunization history:: Adult Immunizations not up to date. - Social history:: Smoking status: Patient denies any tobacco usage or history of. - Family history:: not pertinent. Screenin:00 Abuse screen: Denies threats or abuse. Nutritional screening: No deficits noted. vc1 Tuberculosis screening: No symptoms or risk factors identified. Fall Risk None identified. Assessment: 17:50 General: Appears in no apparent distress. comfortable. Neuro: Level of Consciousness is tp1 awake, alert, obeys commands. Cardiovascular: Patient's skin is warm and dry. Respiratory: Airway is patent Respiratory effort is even, unlabored. Derm: Skin is bilateral lower legs are moist. Musculoskeletal:. Musculoskeletal: Swelling present in right leg and left leg. 21:33 Reassessment: report given to Deandre PRITCHETT for room 401. bb Vital Signs: 13:36 BP 127 / 66; Pulse 92; Resp 22; Temp 97.5(TE); Pulse Ox 98% on R/A; Weight 146.51 kg; kr3 Height 5 ft. 8 in. (172.72 cm); Pain 5/10; 19:57 Weight 163.7 kg; vc1 20:00 BP 132 / 68; Pulse 99; Resp 24; Pulse Ox 99% ; vc1 21:09 BP 121 / 79; Pulse 106; Resp 17; Pulse Ox 97% ; vc1 19:57 Body Mass Index 54.87 (163.70 kg, 172.72 cm) vc1 ED Course: 13:26 Patient arrived in ED. am2 13:26 Yan Parker MD is Private Physician. am2 13:41 Triage completed. kr3 13:45 Arm band placed on right wrist. kr3 14:39 Walter Suarez MD is Attending Physician. dennys 15:01 XRAY Chest (1 view) In Process Unspecified. EDMS 15:32 US Extremity Venous W Compression Baljit In Process Unspecified. EDMS 16:58 Inserted saline lock: 20 gauge in left antecubital area, using aseptic technique. Blood ss collected. 17:40 Maria Victoria Ball RN is Primary Nurse. tp1 17:56 Yrn Sue MD is Hospitalizing Provider. dennys 17:59 Olaf Mccurdy MD is Hospitalizing Provider. la1 19:00 Patient has correct armband on for positive identification. Placed in gown. Bed in low vc1 position. Call light in reach. Client placed on continuous cardiac and pulse oximetry monitoring. NIBP monitoring applied. 20:26 Primary Nurse role handed off by Maria Victoria Ball RN vc1 20:26 Crystal Cisse RN is Primary Nurse. vc1 22:18 No provider procedures requiring assistance completed. Patient admitted, IV remains in vc1 place. Administered Medications: 17:58 Drug: NS 0.9% 1000 ml Route: IV; Rate: 125 ml/hr; Site: left antecubital; tp1 17:58 Drug: Meropenem 1 grams Route: IV; Rate: per protocol; Site: left antecubital; tp1 20:16 Drug: Bactroban (mupirocin) Ointment 2 % 1 application Route: Topical; Site: wound; vc1 20:59 Drug: vancoMYCIN 1.5 grams {Note: Not given by previous nurse.} Route: IVPB; Rate: vc1 calculated rate; Site: left antecubital; 20:59 Drug: Lovenox (enoxaparin) 40 mg Route: Sub-Q; Site: left lower abdomen; vc1 Medication: 20:26 VIS not applicable for this client. vc1 Outcome: 17:58 Decision to Hospitalize by Provider. dennys 22:18 Admitted to Tele accompanied by tech, via stretcher. vc1 22:18 Condition: stable 22:18 Instructed on the need for admit. 22:18 Patient left the ED. vc1 Signatures: Dispatcher [employer] EDWalter Prado MD MD cha Ballard, Brenda, RN RN bb Smirch, Shelby, RN RN ss Casimiro Marr, CINDER BLOCK MASON-C CINDER BLOCK MASON-Cla1 Felicia Soria Tiffany, RN RN tp1 Crystal Cisse RN RN vc1 Jenniffer Eaton RN RN kr3
[2022-05-25] MEDS ORDERED: VANCOMYCIN 1.5 GM in NA CHLORIDE 0.9% 500 ML IVPB ONE (18:00)
[2022-05-25 18:34] LABS: SARS-CoV-2 Antigen Rapid Res Negative (Negative)
[2022-05-25] MEDS ORDERED: MUPIROCIN 2% OINT 22GM TUBE TOP ONE (20:04)
[2022-05-25] MEDS ORDERED: ENOXAPARIN 40 MG/0.4 ML SQ ONE (20:04)
--- NOTE | 2022-05-25 20:04 | P.HP ---
Certification for Inpatient Patient admitted to: Inpatient With expected LOS: >2 Midnights Patient will require the following post-hospital care: None Practitioner: I am a practitioner with admitting privileges, knowledge of patient current condition, hospital course, and medical plan of care. Services: Services provided to patient in accordance with Admission requirements found in Title 42 Section 412.3 of the Code of Federal Regulations <Casimiro Marr - Last Filed: 05/25/22 19:59> Patient History Date of Service: 05/25/22 Reason for admission: Sepsis, cellulitis, LUDY, A. fib History of Present Illness: 77-year-old female with history of hypertension, diabetes mellitus type [id number], chronic pain presents to the emergency department for concern of lower extremity swelling, cellulitis. She reports issues with lower extremity redness, swelling, wounds as well as bedsores, she reports that she sp ends most of her time in a recliner gets around with a walker periodically. She was evaluated in the emergency department her labs were significant for mild leukocytosis with white blood cell count of 11.3 creatinine of 1.9 BUN of 87 GFR 27 glucose 147 BNP 2121 chest x-ray negative for any acute findings lactic acid was 1.3 DVT studies performed bilaterally negative for DVT. Patient also was noted to be in atrial fibrillationrate controlled this is a new finding no known history of atrial fibrillation. SIRS criteria were present including tachycardia, tachypnea with source of infection identified, cellulitis of the lower extremities no hypotension or lactic acidosis was noted patient does not meet criteria for severe sepsis at this time his creatinine is less than 2. Will admit for further evaluation and management of sepsis, LUDY. - Past Medical/Surgical History Diabetic: No -: cancer of ovary -: fractured wrist -: Hypertension -: Diabetes mellitus type [id number] -: 2006 Hysterectomy -: 2012 Wrist surgery Psychosocial/ Personal History: Patient lives at home with her - Family History Mother -: Lung disease Notes: lung cancer Father -: Lung disease, Diabetes Notes: COPD, CHF, DM - Social History Alcohol use: No CD- Drugs: No Caffeine use: No Place of Residence: Home <Casimiro Marr - Last Filed: 05/25/22 19:59> Date of Service: 05/26/22 <Olaf Mccurdy - Last Filed: 05/26/22 13:41> Allergies codeine Allergy (Verified 05/26/22 01:46) Itching erythromycin base Allergy (Verified 05/26/22 01:46) Itching levofloxacin [From Levaquin] Allergy (Verified 05/26/22 01:46) Itching Penicillins Adverse Reaction (Verified 05/26/22 01:46) Hives Home Medications: Losartan Potassium [Cozaar] 100 mg PO DAILY 06/28/18 Furosemide [Lasix] 40 mg PO DAILY #30 tab 07/01/18 Potassium Chloride [K-Dur] 10 meq PO DAILY #30 tab.er.prt 07/01/18 carvediloL [Coreg*] 12.5 mg PO BID #60 tab 07/01/18 Metformin HCl 500 mg PO BID 05/26/22 Tramadol HCl [Ultram] 50 mg PO BIDP PRN 05/26/22 Review of Systems 10-point ROS is otherwise unremarkable General: Weakness, Malaise Musculoskeletal: Back Pain <Casimiro Marr - Last Filed: 05/25/22 19:59> Physical Examination - Physical Exam General: Alert, In no apparent distress, Oriented x3 HEENT: Atraumatic, PERRLA, Mucous membr. moist/pink, EOMI, Sclerae nonicteric Neck: Supple, 2+ carotid pulse no bruit, No LAD, Without JVD or thyroid abnormality Respiratory: Clear to auscultation bilaterally, Normal air movement Cardiovascular: Regular rate/rhythm, Normal S1 S2 Gastrointestinal: Normal bowel sounds, No tenderness Musculoskeletal: Erythema, Tenderness, Warmth (Bilateral lower extremity) Integumentary: No rashes Neurological: Normal speech, Normal strength at 5/5 x4 extr, Normal tone, Normal affect - Studies Laboratory Data (last 24 hrs) 05/25/22 16:54: PT 11.8, INR 1.07 05/25/22 16:54: WBC 11.30 H, Hgb 13.0, Hct 39.9, Plt Count 220 05/25/22 16:54: Sodium 137, Potassium 4.5, BUN 87 H, Creatinine 1.90 H, Glucose 147 H, Magnesium 2.6 H, Total Bilirubin 0.4, AST 16, ALT 21, Alkaline Phosphatase 80, Lipase 296 <Casimiro Marr - Last Filed: 05/25/22 19:59> - Studies Laboratory Data (last 24 hrs) 05/25/22 16:54: PT 11.8, INR 1.07 05/25/22 16:54: WBC 11.30 H, Hgb 13.0, Hct 39.9, Plt Count 220 05/25/22 16:54: Sodium 137, Potassium 4.5, BUN 87 H, Creatinine 1.90 H, Glucose 147 H, Magnesium 2.6 H, Total Bilirubin 0.4, AST 16, ALT 21, Alkaline Ellie sphatase 80, Lipase 296 <Olaf Mccurdy - Last Filed: 05/26/22 13:41> Assessment and Plan - Plan Assessment: Sepsis without severe sepsis or septic shock secondary to bilateral lower extremity cellulitis, venous stasis Acute renal failure secondary to sepsis-multifactorial New onset atrial fibrillation Diabetes mellitus type [id number] Hypertension Obesity Plan: Sepsis without severe sepsis or septic shock secondary to bilateral lower extremity cellulitis, venous stasis: SIRS criteria present including tachycardia, tachypnea source infection bilateral lower extremity cellulitis. Negative for DVT bilaterally continue antibioticsvancomycin. Creatinine 1.9 which is less than 2 does not meet severe sepsis criteria at this time. No lactic acidosis noted. Blood cultures obtained. Acute renal failure secondary to sepsis-multifactorial: Continue as above, patient also reports frequent use of NSAIDsAdvil as well as taking losartan daily. Counseled on need for cessation of use of NSAIDs recommend Tylenol for pain. We will hold losartan for the time being and obtain renal ultrasound. Nephrology consult in place. New onset atrial fibrillation: [id number] score is 5, Eliquis ordered, she is currently rate controlled continue her carvedilol for the time being. Cardiology consult in place and echocardiogram ordered, TSH pending. Diabetes mellitus type [id number]: A1c in the morning, mild sliding scale insulin. Takes metformin at home we will hold this given acute kidney injury. Hypertension: Hold losartan, continue carvedilol. Obesity: Counseled on need for lifestyle changes. DVT PPX: Eliquis Code status: Full Discharge Plan: Home Plan to discharge in: 72 Hours - Advance Directives Does patient have a Living Will: No Does patient have a Durable POA for Healthcare: No - Code Status/Comfort Care Code Status Assessed: Yes (Full code) Critical Care: No Time Spent Managing Pts Care (In Minutes): 70 <Attema,Casimiro A Dandre - Last Filed: 05/25/22 19:59> Physician Review: Patient Assessed, Agree with Above Assessment and Plan <Olaf Mccurdy - Last Filed: 05/26/22 13:41>
--- NOTE | 2022-05-25 20:48 | RAD REPORT ---
EXAM DESCRIPTION: CTStone Protocol - 05/25/2022 8:34 pm CLINICAL HISTORY: Flank pain, kidney stone suspected COMPARISON: No comparisons TECHNIQUE: CT of the abdomen and pelvis was performed without IV contrast. All CT scans are performed using dose optimization technique as appropriate and may include automated exposure control or mA/KV adjustment according to patient size. FINDINGS: Lower chest: No acute abnormality. Liver: No acute abnormality or suspicious lesions. Biliary: No biliary ductal dilatation. Stomach: No significant focal abnormality. Duodenum: No significant focal abnormality. Pancreas: No significant abnormality. Spleen: No significant abnormality. Adrenal: No suspicious lesions. Kidney/ureter: No hydronephrosis. No renal calculi. Retroperitoneum: No retroperitoneal adenopathy. Vascular: No aneurysm. Atherosclerosis Bowel: No significant focal abnormality. Peritoneum: No ascites or free air. Bladder: Grossly unremarkable. Reproductive: No adnexal masses. Hysterectomy Bones: Probably chronic L1 compression fracture with bony retropulsion that results in moderate centr al spinal stenosis. There is approximately 90% loss of height anteriorly. Other: n/a IMPRESSION: No acute intra-abdominal or pelvic finding. Incidental findings as noted above.
[2022-05-25] MEDS ORDERED: TRAMADOL HCL 50 MG TAB PO PRN (22:49)
[2022-05-25] MEDS: INSULIN -REGULAR HUMAN 50 UNIT/0.5 ML ML SQ SCH (22:49)
[2022-05-25] MEDS ORDERED: VANCOMYCIN 1 GM in NA CHLORIDE 0.9% 250 ML IVPB SCH (22:49)
[2022-05-25] MEDS ORDERED: VANCOMYCIN 500 MG in NA CHLORIDE 0.9% 100 ML IVPB ONE (23:15)
[2022-05-26] MEDS: ACETAMINOPHEN 500 MG TAB PO PRN ×4 (01:26→22:00)
[2022-05-26 02:01] VITALS: O2SAT 100; BMI 54.8
[2022-05-26] MEDS: carvediloL 12.5 MG TAB PO SCH ×2 (05:01→17:15)
[2022-05-26] MEDS: MORPHINE 2 MG/ML SYR IV PRN ×2 (05:03→23:13)
[2022-05-26 06:03] LABS: Absolute Lymphocytes (CBC) 2.7 K/uL (0.7-4.9); Hematocrit 35.8 % (36.0-45.0); MCV 92.6 fL (80-100); MPV 8.1 fL (7.6-11.3); RBC Red Blood Cell Count 3.87 M/uL (3.86-4.86)
[2022-05-26 06:43] LABS: Albumin 2.6 g/dL (3.4-5.0); Bilirubin Total 0.4 mg/dL (0.2-1.0); Potassium 4.3 mmol/L (3.5-5.1); Protein, Total 6.7 g/dL (6.4-8.2); Uric Acid 7.9 mg/dL (2.6-6.0)
[2022-05-26] MEDS: INSULIN -REGULAR HUMAN 50 UNIT/0.5 ML ML SQ SCH ×4 (07:30→20:45)
[2022-05-26] MEDS ORDERED: NA CHLORIDE 0.9% 1,000 ML IV SCH (08:00)
[2022-05-26] MEDS ORDERED: INFLUENZA VACCINE (for 6+ mo) 0.5 ML DOSE IMVAC ONE (08:00)
[2022-05-26] MEDS: APIXABAN 5 MG TABLET PO SCH ×2 (08:34→20:43)
--- NOTE | 2022-05-26 08:36 | RAD REPORT ---
EXAM DESCRIPTION: US - Renal Ultrasound-Complete - 05/26/2022 12:00 am CLINICAL HISTORY: arf COMPARISON: Stone Protocol dated 05/25/2022 FINDINGS: The right kidney measures grossly 13 x 6 x 4 cm. The left kidney measures grossly 10 x 6 x 5 cm. Renal cortical thickness and echogenicity are normal. No hydronephrosis or suspicious renal m ass. Punctate echogenic foci are seen and may be nonobstructing calyx calculi or benign parenchymal c alcifications. Bladder is only partially filled. Assessment is limited but no gross abnormality seen. IMPRESSION: No hydronephrosis or suspicious renal mass. Normal cortical thickness and normal renal cortical echogenicity.
[2022-05-26 10:42] LABS: UR PROTEIN 31.4 mg/dL (<11.9); Urine Protein/Creatinine Ratio 0.44 ratio (<0.15)
[2022-05-26 10:46] LABS: Specific Gravity 1.017 (1.005-1.030); Urine Bacteria <20 /HPF (<20); Urine Bilirubin NEGATIVE (Negative); Urine Blood Negative (Negative); Urine Clarity Clear (Clear); Urine Color Light-Yellow (Yellow); Urine Glucose NEGATIVE (Negative); Urine Mucus Slight /HPF (None Seen); Urine Protein TRACE (Negative); Urine RBC <5 /HPF (None Seen); Urine Urobilinogen Normal (Normal); Urine WBC Clump Rare /HPF (None Seen); Urine pH 5.5 (5.0-7.0)
--- NOTE | 2022-05-26 13:52 | P.PN ---
Subjective Date of Service: 05/26/22 Chief Complaint: Sepsis, cellulitis, LUDY, A. fib No acute events since admission. She reports chronic lower extremity burning pain. She denies any chest pain, shortness of breath, or palpitations this morning. Review of Systems 10-point ROS is otherwise unremarkable Cardiovascular: Edema Musculoskeletal: Back Pain, Leg Pain (left) Physical Examination - Vital Signs Temperature: 97.3 F Blood Pressure: 131/61 Pulse: 86 Respirations: 18 Pulse Ox (%): 96 - Physical Exam General: Alert, In no apparent distress, Oriented x3 HEENT: Atraumatic, PERRLA Neck: Supple, JVD not distended Respiratory: Clear to auscultation bilaterally, Normal air movement Cardiovascular: Regular rate/rhythm, Normal S1 S2, No gallops, No rubs, No murmurs, Edema (significant 3-4+ bilateral lower extremity edema) Capillary refill: <2 Seconds Gastrointestinal: Normal bowel sounds, Soft and benign, No tenderness, No rebound, No guarding Musculoskeletal: No clubbing Integumentary: Skin breakdown (bilateral anterior jean skin breakdown with crusting) Neurological: Normal speech, Cranial nerves 3-12 intact, Normal affect - Studies Laboratory Data (last 24 hrs) 05/25/22 16:54: PT 11.8, INR 1.07 05/25/22 16:54: WBC 11.30 H, Hgb 13.0, Hct 39.9, Plt Count 220 05/25/22 16:54: Sodium 137, Potassium 4.5, BUN 87 H, Creatinine 1.90 H, Glucose 147 H, Magnesium 2.6 H, Total Bilirubin 0.4, AST 16, ALT 21, Alkaline Phosphatase 80, Lipase 296 Assessment And Plan - Plan # Sepsis likely secondary to Lower Extremity Cellulitis (Left > Right) She met sepsis criteria based on HR > 90 bpm and RR > 20 breaths/min and the suspected source is a soft tissue infection. - Sepsis order set was initiated - Initial Lactate was 1.3 - Blood cultures drawn before antibiotics were given - Broad spectrum antibiotics started: Vancomycin - In regards to fluids: - 30 mL/kg of IV fluids was not administered given SBP > 90, MAP > 65, lactic acid < 4 - Bilateral lower extremity Doppler = "No DVT in either lower extremity." # Paroxysmal Atrial Fibrillation with Rapid Ventricular Response # Hypertension Her [id number] = 5 (HTN=1, Age>75=2, DM=1, Sex=1), which warrants anticoagulation. - Evaluation thus far: - Troponin = 18.7 - EKG = atrial fibrillation - Chest x-ray = "No acute cardiopulmonary disease" - Potassium = 4.3, Magnesium = 2.6 - Target K> 4, Mg >2 - TSH = 2.22 - NT-Pro BNP = 2121 - Managment Plan: - Cardiology consulted and spoke with Dr. Escamilla - recommendtions appreciated - Transthoracic echocardiogram ordered - For rate control: - Started on carvedilol - For anticoagulation: - Started on apixaban # Acute Kidney Injury (Multifactorial) - Creatinine = 1.90 -> 1.21 (baseline creatinine unknown) - Urinalysis = 25 leuckoyte esterase - Nephrology consulted and Dr. Dangelo following - recommendations appreciated - Normal Saline @ 75 mL/hr - CT abdomen = "No acute intra-abdominal or pelvic finding. Incidental findings as noted above." - Renal ultrasound = "No hydronephrosis or suspicious renal mass. 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 She denies saddle anesthesia or urinary/bowel incontinence. - PRN acetaminophen Olaf Mccurdy M.D.
--- NOTE | 2022-05-26 17:43 | P.CNS ---
Date of Consult: 05/26/22 Reason for Consult: renal failure Requesting Physician: Olaf Mccurdy Chief Complaint: Sepsis, cellulitis, LUDY, A. fib History of Present Illness: 77F w/ PMHx of Htn, DM2, chronic bilateral LE edema, hx of ovarian cancer s/p TAHBSO in 2006, & chronic pain issues, who p/w bilateral lower extremity redness, swelling, wounds as well as bedsores, admitted for sepsis 2/2 BLE cellulitis. Referred to Nephrology for LUDY. Baseline SCr 0.9 to 1.0 in January 2020. SCr increased to 1.9 on adm. He received IVF & abx. SCr improved to 1.2 today. Allergies codeine Allergy (Verified 05/26/22 01:46) Itching erythromycin base Allergy (Verified 05/26/22 01:46) Itching levofloxacin [From Levaquin] Allergy (Verified 05/26/22 01:46) Itching Penicillins Adverse Reaction (Verified 05/26/22 01:46) Hives Home Medications: Losartan Potassium [Cozaar] 100 mg PO DAILY 06/28/18 Furosemide [Lasix*] 40 mg PO DAILY #30 tab 07/01/18 Potassium Chloride [K-Dur] 10 meq PO DAILY #30 tab.er.prt 07/01/18 carvediloL [Coreg*] 12.5 mg PO BID #60 tab 07/01/18 Metformin HCl 500 mg PO BID 05/26/22 Tramadol HCl [Ultram] 50 mg PO BIDP PRN 05/26/22 Apixaban [Eliquis] 5 mg PO BID #60 tab 05/27/22 Cephalexin [Keflex] 500 mg PO BID 7 Days #14 cap 05/27/22 Doxycycline Hyclate 100 mg PO BID 7 Days #14 tab 05/27/22 - Past Medical/Surgical History Diabetic: No -: cancer of ovary -: fractured wrist -: Hypertension -: Diabetes mellitus type [id number] -: 2006 Hysterectomy -: 2011 Wrist surgery Psychosocial/ Personal History: Patient lives at home with her - Family History Mother Medical History: Lung disease Notes: lung cancer Father Medical History: Lung disease, Diabetes Notes: COPD, CHF, DM - Social History Alcohol use: No CD- Drugs: No Caffeine use: No Place of Residence: Home Review of Systems General: Weakness Eyes: Unremarkable ENT: Unremarkable Respiratory: Unremarkable Cardiovascular: Unremarkable Gastrointestinal: Unremarkable Genitourinary: Unremarkable Musculoskeletal: Unremarkable Integumentary: Unremarkable (Wounds on BLEs) Neurological: Unremarkable Lymphatics: Unremarkable Physical Examination Temp Pulse Resp BP Pulse Ox 97.5 F 81 18 103/46 L 96 05/26/22 15:45 05/26/22 17:15 05/26/22 15:45 05/26/22 17:15 05/26/22 15:45 General: In no apparent distress, Other (obese) HEENT: Atraumatic, Normocephalic Neck: Supple Respiratory: Other (symmetric chest expansion) Cardiovascular: No rubs, No murmurs Gastrointestinal: Soft and benign, No guarding Musculoskeletal: Swelling, Erythema (B legs) Integumentary: Skin breakdown (B legs) Neurological: Normal speech, Normal tone Urinary: Other (No bladder distention, no butts) External genitalia: Deferred Rectal: Deferred Conclusions/Impression: # LUDY 2/2 prerenal state +/- ATN from prolonged prerenal + sepsis Baseline SCr 0.9 to 1.0 in January 2020. SCr increased to 1.9 on adm. He received IVF & abx. SCr improved to 1.2 today. Urinalysis +trace proteinuria, no hematuria, no pyuria +mild proteinuria o.4g on random upcr Renal US showed asymmetric sized kidneys, no hydronephrosis [place] po fluid intake # Sepsis 2/2 BLE cellulitis Abx per primary team Local wound care Multilayer compression as below # Chronic BLE edema 2/2 chronic venous insufficiency, obesity, hypomobility +/- dec lymphatic drainage from prior TAHBSO Hx of ovarian cancer s/p TAHBSO in 2006 +brawny edema changes TTE in 2018 unremarkable, LVEF 65%, BNP elevated Will need to start multilayer compression to both legs c/o wound care team to promote wound healing & prevent recurrent skin breakdown & elephant legs # pAfib Per other services # Chronic L1 compression fx Per other services # DM2 Mngt per primary team
[2022-05-26] MEDS ORDERED: HYDROMORPHONE HCL 0.5 MG/0.5 ML INJ IV ONE (18:00)
[2022-05-26] MEDS ORDERED: BISACODYL 10 MG RECTAL SUPP PR ONE (18:00)
[2022-05-26] MEDS ORDERED: JUVEN PACKET PO SCH (21:00)
[2022-05-27] MEDS ORDERED: HYDROMORPHONE HCL 1 MG/ML INJ IV ONE (02:06)
[2022-05-27 05:49] LABS: Absolute Lymphocytes (CBC) 3.5 K/uL (0.7-4.9); Hematocrit 36.4 % (36.0-45.0); Lymphocytes % 36.3 % (15.3-44.8); MCV 92.6 fL (80-100); MPV 8.4 fL (7.6-11.3); RBC Red Blood Cell Count 3.93 M/uL (3.86-4.86)
[2022-05-27] MEDS: carvediloL 12.5 MG TAB PO SCH (06:01)
[2022-05-27 06:05] LABS: Albumin 2.6 g/dL (3.4-5.0); Bilirubin Total 0.3 mg/dL (0.2-1.0); Potassium 4.7 mmol/L (3.5-5.1); Protein, Total 6.9 g/dL (6.4-8.2)
[2022-05-27] MEDS: ACETAMINOPHEN 500 MG TAB PO PRN (06:46)
[2022-05-27] MEDS: DOXYCYCLINE 100 MG CAP PO SCH ×2 (06:46→06:47)
[2022-05-27] MEDS ORDERED: CEPHALEXIN 250 MG CAP PO SCH (07:00)
[2022-05-27] MEDS: INSULIN -REGULAR HUMAN 50 UNIT/0.5 ML ML SQ SCH (07:30)
[2022-05-27 07:55] VITALS: BP 128/62; TEMP 97.5
--- NOTE | 2022-05-27 07:56 | P.DS ---
Admission Date: 05/25/22 Discharge Date: 05/27/22 Disposition: ROUTINE DISCHARGE Discharge Condition: GOOD Reason for Admission: Sepsis, cellulitis, LUDY, A. fib Consultations: 1. Cardiology 2. 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 Maria Teresa Harrison is a 77 year old female with a past medical history significant for hypertension, type 2 diabetes, and a chronic L1 compression fracture who was admitted to the [facility] on 05/25/2022 for lower extremity swelling. She was admitted to the Medicine service. Upon further evaluation, she was found to have sepsis secondary to bilateral lower extremity cellulitis (left > right). Additionally, she was found to have atrial fibrillation with rapid ventricular response and an acute kidney injury. She was treated with IV antibiotics, with significant improvement in her cellulitis. In regards to her atrial fibrillation, Cardiology was consulted and she was evaluated by Dr. Escamilla. She was started on carvedilol and apixaban, and her atrial fibrillation became ratecontrolled. In regards to her acute kidney injury, this was likely multifactorial due to NSAID use at home as well as secondary to sepsis. She was evaluated by Nephrology and treated with IV fluids, with normalization of her creatinine level. She has been provided extensive counseling on the need to avoid NSAID use at home. Case management was also consulted to assist in arranging for home health with custodial and wound care. On 05/26/2022, she was seen on morning rounds and deemed medically stable for discharge. She was discharged with instructions to schedule follow-up appointments with her PCP (Dr. Parker), with Cardiology (Dr. Escamilla), and with [facility] (she requested to see Dr. South since this is who her sees). She was provided prescriptions for cephalexin, doxycylcine, and apixaban. She was given the opportunity to ask questions and reported no further questions. Furthermore, all questions were answered to the best of my ability. A copy of this discharge summary will be sent to the above providers to facilitate continuity of care. Today, I personally spent 35 minutes on her case, of which greater than 50% of the time was spent in patient education, counseling, and coordination of care as described above. - Physical Exam General: Alert, In no apparent distress, Oriented x3 HEENT: Atraumatic, PERRLA Neck: Supple, JVD not distended Respiratory: Clear to auscultation bilaterally, Normal air movement Cardiovascular: Regular rate/rhythm, Normal S1 S2, No gallops, No rubs, No murmurs, Edema (significant 3-4+ bilateral lower extremity edema) Capillary refill: <2 Seconds Gastrointestinal: Normal bowel sounds, Soft and benign, No tenderness, No rebound, No guarding Musculoskeletal: No clubbing Integumentary: Skin breakdown (bilateral anterior jean skin breakdown with crusting) Neurological: Normal speech, Cranial nerves 3-12 intact, Normal affect Vital Signs/Physical Exam: Temp Pulse Resp BP Pulse Ox 97.5 F 88 16 128/62 95 05/27/22 07:54 05/27/22 07:54 05/27/22 07:54 05/27/22 07:54 05/27/22 07:54 Laboratory Data at Discharge: WBC 9.70 K/uL (4.3-10.9) 05/27/22 05:34 Hgb 11.9 g/dL (12.0-15.0) L 05/27/22 05:34 Hct 36.4 % (36.0-45.0) 05/27/22 05:34 Plt Count 168 K/uL (152-406) 05/27/22 05:34 PT 11.8 SECONDS (9.5-12.5) 05/25/22 16:54 INR 1.07 05/25/22 16:54 Sodium 138 mmol/L (136-145) 05/27/22 05:34 Potassium 4.7 mmol/L (3.5-5.1) 05/27/22 05:34 BUN 45 mg/dL (7-18) H 05/27/22 05:34 Creatinine 0.95 mg/dL (0.55-1.3) 05/27/22 05:34 Glucose 154 mg/dL (74-106) H 05/27/22 05:34 Uric Acid 7.9 mg/dL (2.6-6.0) H 05/26/22 05:47 Magnesium 2.6 mg/dL (1.8-2.4) H 05/25/22 16:54 Total Bilirubin 0.3 mg/dL (0.2-1.0) 05/27/22 05:34 AST 20 U/L (15-37) 05/27/22 05:34 ALT 19 U/L (12-78) 05/27/22 05:34 Alkaline Phosphatase 64 U/L (45-117) 05/27/22 05:34 Triglycerides 126 mg/dL (<150) 05/26/22 05:47 Cholesterol 105 mg/dL (<200) 05/26/22 05:47 HDL Cholesterol 29 mg/dL (40-60) L 05/26/22 05:47 Cholesterol/HDL Ratio 3.62 05/26/22 05:47 Lipase 296 U/L (73-393) 05/25/22 16:54 Home Medications: Losartan Potassium [Cozaar] 100 mg PO DAILY 06/28/18 Furosemide [Lasix*] 40 mg PO DAILY #30 tab 07/01/18 Potassium Chloride [K-Dur] 10 meq PO DAILY #30 tab.er.prt 07/01/18 carvediloL [Coreg*] 12.5 mg PO BID #60 tab 07/01/18 Metformin HCl 500 mg PO BID 05/26/22 Tramadol HCl [Ultram] 50 mg PO BIDP PRN 05/26/22 Apixaban [Eliquis] 5 mg PO BID #60 tab 05/27/22 Cephalexin [Keflex] 500 mg PO BID 7 Days #14 cap 05/27/22 Doxycycline Hyclate 100 mg PO BID 7 Days #14 tab 05/27/22 New Medications: Doxycycline Hyclate 100 mg PO BID 7 Days #14 tab Apixaban [Eliquis] 5 mg PO BID #60 tab Cephalexin [Keflex] 500 mg PO BID 7 Days #14 cap Physician Discharge Instructions: 1. Please call and schedule a follow-up appointment with your PCP (Dr. Parker) in 3-5 days 2. Please call and schedule a follow-up appointment with Cardiology (Dr. Escamilla) in 5-7 days 3. Please call and schedule a follow-up appointment with Dr. South at [facility] in 5-7 days Diet: AHA Activity: Ad genevieve Followup: Barney Escamilla MD [ACTIVE - CAN ADMIT] - 1 Week Yan Parker MD [Primary Care Provider] - 2-3 Days Bay South MD [ACTIVE - CAN ADMIT] - 1 Week Time spent managing pt's care (in minutes): 35
[2022-05-27] MEDS ORDERED: VANCOMYCIN 2 GM in NA CHLORIDE 0.9% 500 ML IVPB SCH (11:00)
--- NOTE | 2022-05-27 19:16 | EKG ---
Test Date: 2022-05-25 Test Time: 18:03:07 Boat Finisher: ROXANNE MEASUREMENT RESULTS: Intervals: Rate: 97 [place]: QRSD: 88 QT: 332 QTc: 421 [place]: P: [place]: QRS: 77 T: 36 INTERPRETIVE STATEMENTS: Atrial fibrillation with premature ventricular or aberrantly conducted complexes Cannot rule out Anterior infarct, age undetermined Abnormal ECG Compared to ECG 10/19/2011 10:36:36 Ventricular premature complex(es) now present Myocardial infarct finding now present Sinus rhythm no longer present Atrial premature complex(es) no longer present Electronically Signed On 05-27-22 19:10:52 [employer] by Barney Escamilla
--- NOTE | 2022-05-28 22:30 | CON ---
Date of Consultation: 05/26/2022 Reason For Consultation: Atrial fibrillation. History Of Present Illness: is 77. Has a history of diabetes, hypertension, cellulitis , normally follows up with Dr. Welsh. She comes in with cellulitis, but was found to have atrial fibr illation, heart rate of 97, creatinine of 1.9, white count of 11,000. Elevated BNP at 2100, glucose of 147, negative venous Doppler, negative chest x-ray. She is now on Coreg, insulin, antibiotics, an d Eliquis. Echocardiogram is pending. She denied any cardiac symptoms. She has atrial fibrillation , but she is not having any symptoms with it. Denied PND, orthopnea. Has pedal edema. Denied palpi tation. Denied syncope. Denied fever or chills. Allergies: TO PENICILLIN, LEVAQUIN, ERYTHROMYCIN, AND IODINE. Review of Systems: Negative. Social History: Negative. Family History: Negative. Medications: At home include Lasix, losartan, metformin, and carvedilol. Physical Examination: Vital Signs: She was in atrial fibrillation rate of 97, otherwise no acute distress. Vital signs ot herwise stable, afebrile. HEENT: Negative. Neck: Supple with no bruit. Chest: Clear. Cardiac: Revealed atrial fibrillation. Abdomen: Obese. Extremities: Revealed severe cellulitis and edema in both legs up to the knees. Diagnostic Data: As stated earlier. Impression And Plan: 1.Cellulitis, on antibiotics. 2.New onset atrial fibrillation. She is now on Eliquis and beta-blockers. Heart rate is controlled . No symptoms. Echocardiogram is pending. 3.Diabetes, on insulin. 4.Hypertension well controlled. Again, we will see what her echo shows. She can go home once it is okay with Dr. Mccurdy. She will ne ed an outpatient event monitor and Lexiscan down the road. Her dose of beta-edd can be increased as needed for her heart rate, we will continue to follow platanya KASPER/PRASHANTH Voice ID: [id number] Report ID: [id number]
== END 2022-05-27 09:35 | disposition home or self-care (01) | DRG 872 ==
LOC: ER 13:19 → ERHOLD 19:13 → 4TH 21:27
PROVIDERS: ADMIT Internal Medicine; ATTEND Internal Medicine
DX: A41.51 Sepsis due to Escherichia coli [E. coli] (principal); I48.19 Other persistent atrial fibrillation; L03.115 Cellulitis of right lower limb; N17.9 Acute kidney failure, unspecified; Z68.43 Body mass index [BMI] 50.0-59.9, adult; L03.116 Cellulitis of left lower limb; I87.8 Other specified disorders of veins; L89.312 Pressure ulcer of right buttock, stage 2; L89.892 Pressure ulcer of other site, stage 2; M48.061 Spinal stenosis, lumbar region without neurogenic claudication; I10 Essential (primary) hypertension; E11.65 Type 2 diabetes mellitus with hyperglycemia; E66.01 Morbid (severe) obesity due to excess calories; A41.52 Sepsis due to Pseudomonas; A41.01 Sepsis due to Methicillin susceptible Staphylococcus aureus; B96.4 Proteus (mirabilis) (morganii) as the cause of diseases classified elsewhere; T39.395A Adverse effect of other nonsteroidal anti-inflammatory drugs [NSAID], initial encounter; Z88.0 Allergy status to penicillin; Z88.1 Allergy status to other antibiotic agents; Z88.5 Allergy status to narcotic agent; Z85.43 Personal history of malignant neoplasm of ovary; Z79.84 Long term (current) use of oral hypoglycemic drugs; Z79.01 Long term (current) use of anticoagulants; Z90.710 Acquired absence of both cervix and uterus; Z79.899 Other long term (current) drug therapy; Z20.822 Contact with and (suspected) exposure to COVID-19
CPT/HCPCS: 36415; 71045; 74176; 76377; 76770; 80048; 80053; 80061; 80076; 81001; 82550; 82570; 82947; 83036; 83605; 83690; 83735; 83880; 84156; 84443; 84484; 84550; 85025; 85610; 87040; 87070; 87077; 87186; 87205; 87811; 93005; 93970; 96372; 96374; 96375; 97116; 97161; 97530; 99285; J1170; J1650; J1815; J2185; J2270; J3370; J7030; J7040

== ENCOUNTER 2022-06-03 17:32 | Inpatient (IN) | payer OTHER ==
--- NOTE | 2022-06-03 18:02 | EDPHYS ---
Physician Documentation [facility] Name: Maria Teresa Harrison Age: 77 yrs Sex: Female : 1945 Arrival Date: 06/03/2022 Time: 17:41 Bed 25 Private MD: ED Physician Zeeshan Dumont HPI: 06/03 18:06 This 77 yrs old Female presents to ER via Unassigned with complaints of leg and buttock ms3 ulcerations. 18:06 The patient's rash thought to be caused by Was recently admitted and called to come ms3 back to the hospital for IV abx. The rash is located on the right leg, left leg, buttock. The rash can be described as crusted, ulceration. Onset: The symptoms/episode began/occurred last week. Associated signs and symptoms: Pertinent negatives: fever. Severity of symptoms: At their worst the symptoms were moderate in the emergency department the symptoms are unchanged. Historical: - Allergies: 18:17 Hydrocodone-Acetaminophen; hb 18:17 Levaquin; hb 18:17 PENICILLINS; hb - PMHx: 18:17 Cellulitis; diabetes mellitus; Hypertension; hb - PSHx: 18:17 hearth cath; ovarian cancer; Total abdominal hysterectomy; wrist SX; hb - Immunization history:: Adult Immunizations up to date. - Social history:: Smoking status: Patient denies any tobacco usage or history of. ROS: 18:06 Constitutional: Negative for fever, and chills. Neck: Negative for injury, pain, and ms3 swelling, Cardiovascular: Negative for chest pain, and palpitations. Respiratory: Negative for shortness of breath, cough, wheezing, and pleuritic chest pain, Abdomen/GI: Negative for abdominal pain, nausea, vomiting, diarrhea, and constipation, MS/Extremity: Negative for injury and deformity. 18:06 Skin: Positive for cellulitis, ulceration. 18:06 All other systems are negative. Exam: 18:06 Constitutional: This is a well developed, well nourished patient who is awake, alert, ms3 and in no acute distress. Head/Face: Normocephalic, atraumatic. Neck: Trachea midline, no cervical lymphadenopathy. Supple, full range of motion without nuchal rigidity, or vertebral point tenderness. No Meningismus. Chest/axilla: Normal chest wall appearance and motion. Nontender with no deformity. Cardiovascular: Regular rate and rhythm with a normal S1 and S2. No gallops, murmurs, or rubs. Normal PMI, no JVD. No pulse deficits. Respiratory: Lungs have equal breath sounds bilaterally, clear to auscultation and percussion. No rales, rhonchi or wheezes noted. No increased work of breathing, no retractions or nasal flaring. Abdomen/GI: Soft, non-tender, with normal bowel sounds. No distension or tympany. No guarding or rebound. No evidence of tenderness throughout. 18:06 Skin: Cellulitis bilateral lower extremities with ulcerations on bilateral heels. Erythema of bilateral buttocks. Vital Signs: 18:16 BP 151 / 82; Pulse 104; Resp 17; Temp 98.4(O); Pulse Ox 100% ; Pain 3/10; hb 20:05 BP 132 / 61; Pulse 98; Resp 22; Pulse Ox 91% on R/A; kl MDM: 17:58 Patient medically screened. ms3 18:08 ED course: Case discussed with Dr Mccurdy. Patient to be admitted to Dr Sue. Would like ms3 CBC, BMP, Mag, Phos, Meropenem [address] Em with ID consulted.. 06/03 17:46 Order name: CBC with Diff; Complete Time: 19:57 ms3 06/03 17:46 Order name: BMP; Complete Time: 19:57 ms3 06/03 17:46 Order name: Magnesium; Complete Time: 19:57 ms3 06/03 17:46 Order name: Phosphorus; Complete Time: 19:57 ms3 06/03 17:46 Order name: Blood Culture Adult (2) ms3 06/03 18:44 Order name: SARS-COV-2 Antigen Rapid; Complete Time: 19:57 kj1 06/03 17:46 Order name: consult Order-Addison Em MD (Infectious Disease); Complete Time: 20:11 ms3 06/04 03:17 Order name: CBC with Automated Diff; Complete Time: 04:31 EDMS 06/04 03:18 Order name: Basic Metabolic Panel; Complete Time: 04:31 EDMS 06/04 03:18 Order name: Phosphorus; Complete Time: 04:31 EDMS 06/04 03:18 Order name: Magnesium; Complete Time: 04:31 EDMS 06/04 08:37 Order name: Glucose, Ancillary Testing EDMS 06/04 12:23 Order name: Glucose, Ancillary Testing EDMS Administered Medications: 19:55 Drug: Meropenem 1 grams Route: IV; Rate: calculated rate; Site: left wrist; kl Disposition Summary: 06/03/22 18:01 Hospitalization Ordered Hospitalization Status: Inpatient Admission ms3 Provider: Yrn Sue ms3 Condition: Stable ms3 Problem: new ms3 Symptoms: are unchanged ms3 Bed/Room Type: Standard ms3 Location: Telemetry/MedSurg (Inpatient)(06/04/22 15:24) em1 Room Assignment: 207(06/04/22 15:24) em1 Diagnosis - Cellulitis of other sites ms3 - Heel Ulceration ms3 - Buttock ulcerations ms3 - Obesity, unspecified ms3 Forms: - Medication Reconciliation Form ms3 - SBAR form ms3 Signatures: Dispatcher [employer] EDMS Sarika Gallego RN RN Celso Dillonic em1 Yashira Melara RN RN cg Baxter, Heather, RN RN Zeeshan Dumont, DO ms3 Ivonne Reed, PA-C PA-C sb4 Corrections: (The following items were deleted from the chart) 18:09 18:06 Data reviewed: ms3 ms3 19:42 18:01 Telemetry/MedSurg (Inpatient) ms3 cg 19:42 18:01 ms3 cg 06/04 15:24 06/03 19:42 [facility] ER HOLD cg em1 06/04 15:24 06/03 19:42 ERHOLD- cg em1
[2022-06-03 19:25] LABS: SARS-CoV-2 Antigen Rapid Res Negative (Negative)
[2022-06-03 19:44] LABS: Absolute Lymphocytes (CBC) 3.1 K/uL (0.7-4.9); Hematocrit 41.4 % (36.0-45.0); Lymphocytes % 26.9 % (15.3-44.8); MCV 92.3 fL (80-100); MPV 8.6 fL (7.6-11.3); RBC Red Blood Cell Count 4.48 M/uL (3.86-4.86)
[2022-06-03 19:50] LABS: Magnesium 1.7 mg/dL (1.8-2.4); Phosphorus 3.4 mg/dL (2.5-4.9); Potassium 3.9 mmol/L (3.5-5.1)
--- NOTE | 2022-06-03 19:59 | P.HP ---
Certification for Inpatient Patient admitted to: Inpatient With expected LOS: >2 Midnights Patient will require the following post-hospital care: Home Health Services Practitioner: I am a practitioner with admitting privileges, knowledge of patient current condition, hospital course, and medical plan of care. Services: Services provided to patient in accordance with Admission requirements found in Title 42 Section 412.3 of the Code of Federal Regulations Patient History Date of Service: 06/03/22 Primary Care Provider: Parker Reason for admission: Celllulitus History of Present Illness: Patient is a 77-year-old female with history of hypertension, diabetes mellitus type [id number], afib on eliquis, and chronic pain who is a readmission for IV antibiotics. She was admitted 9 days ago she for sepsis secondary to bilateral lower extremity cellulitis (left > right). She was treated with IV antibiotics, with significant improvement in her cellulitis. She was discharged with prescriptions for cephalexin and doxyclycline. It was discovered today that her wound cultures returned positive for the following: Right Buttock: Escherichia Coli + Proteus Vulgaris, Left Buttock: Proteus Vulgaris, Left Foot: Staphylococcus Aureus + Pseudomonas Aeruginosa. the Proteus Vulgaris + Pseudomonas Aeruginosa require additional coverage. Patient has levaquin allergy and therefore requires meropenem. She is admitted for IV antibiotic therapy. Allergies codeine Allergy (Verified 05/26/22 01:46) Itching erythromycin base Allergy (Verified 05/26/22 01:46) Itching levofloxacin [From Levaquin] Allergy (Verified 05/26/22 01:46) Itching Penicillins Adverse Reaction (Verified 05/26/22 01:46) Hives Home medications list reviewed: Yes Home Medications: Losartan Potassium [Cozaar] 100 mg PO DAILY 06/28/18 Furosemide [Lasix*] 40 mg PO DAILY #30 tab 07/01/18 Potassium Chloride [K-Dur] 10 meq PO DAILY #30 tab.er.prt 07/01/18 carvediloL [Coreg*] 12.5 mg PO BID #60 tab 07/01/18 Metformin HCl 500 mg PO BID 05/26/22 Tramadol HCl [Ultram] 50 mg PO BIDP PRN 05/26/22 Apixaban [Eliquis] 5 mg PO BID #60 tab 05/27/22 Cephalexin [Keflex] 500 mg PO BID 7 Days #14 cap 05/27/22 Doxycycline Hyclate 100 mg PO BID 7 Days #14 tab 05/27/22 - Past Medical/Surgical History Diabetic: Yes -: Ovarian Cancer -: Diabetes mellitus type [id number] -: Hypertension -: Atrial Fibrillation -: Hysterectomy -: Wrist surgery Psychosocial/ Personal History: Patient lives at home with her - Family History Mother -: Lung disease, Cancer Father -: Heart disease, Lung disease, Diabetes - Social History Smoking Status: Never smoker Alcohol use: No CD- Drugs: No Caffeine use: No Place of Residence: Home Review of Systems Integumentary: As per HPI Physical Examination - Physical Exam General: Alert, In no apparent distress, Obese HEENT: Atraumatic, PERRLA, EOMI, Sclerae nonicteric Neck: Supple, 2+ carotid pulse no bruit, No LAD, Without JVD or thyroid abnormality Respiratory: Clear to auscultation bilaterally, Normal air movement Cardiovascular: Regular rate/rhythm, Normal S1 S2 Gastrointestinal: Normal bowel sounds, No tenderness Musculoskeletal: No tenderness Integumentary: Skin breakdown (Cellulitus bilateral lower extremities, heels, and buttocks), Tenderness/swelling, Erythema, Warmth Neurological: Normal speech, Normal strength at 5/5 x4 extr, Normal tone, Normal affect Assessment and Plan - Problems (Diagnosis) (1) Type 2 diabetes mellitus Current Visit: Yes Status: Chronic Qualifiers: Diabetes mellitus care home insulin use: without manager long term care use Diabetes mellitus complication status: with kidney complications Diabetes mellitus complication detail: with chronic kidney disease Chronic kidney disease stage: stage 2 (mild) Qualified Code(s): E11.22 - Type 2 diabetes mellitus with diabetic chronic kidney disease; N18.2 - Chronic kidney disease, stage 2 (mild) (2) Hypertension Current Visit: Yes Status: Chronic Qualifiers: Hypertension type: primary hypertension Qualified Code(s): I10 - Essential (primary) hypertension (3) Cellulitis of both lower extremities Current Visit: Yes Status: Acute (4) Cellulitis of buttock Current Visit: Yes Status: Acute (5) Atrial fibrillation Current Visit: Yes Status: Chronic Qualifiers: Atrial fibrillation type: paroxysmal Qualified Code(s): I48.0 - Paroxysmal atrial fibrillation - Plan Continue IV meropenem for positive wound cultures- E Coli, Proteus Vulgaris, Staphylococcus Aureus, Pseudomonas Aeruginosa Patient is NOT meeting sepsis criteria at this time. WBC slightly bumped. Vital signs stable. New blood cultures obtained. PICC line request ordered. Infectious disease consulted, aware of patient. Case management consult as patient will likely need home health on dispo for assistance with IV antibiotics. ACHS accu checks with mild sliding scale and diabetic diet. Wound healing center consulted. Monitor and replete electrolytes per protocol. Reconcile and continue home medications. Lovenox for VTE prophylaxis. Full code. Discharge Plan: Home Plan to discharge in: Greater than 2 days - Advance Directives Does patient have a Living Will: No Does patient have a Durable POA for Healthcare: No - Code Status/Comfort Care Code Status Assessed: Yes Code Status: Full Code Critical Care: No Time Spent Managing Pts Care (In Minutes): 50
[2022-06-03] MEDS ORDERED: ONDANSETRON 4 MG/2 ML VIAL IV PRN (22:28)
[2022-06-03] MEDS: INSULIN -REGULAR HUMAN 50 UNIT/0.5 ML ML SQ SCH (22:28)
[2022-06-03 23:09] VITALS: BMI 55.9
[2022-06-03] MEDS ORDERED: ACETAMINOPHEN 325 MG TABLET ONE (23:31)
[2022-06-03] MEDS: ACETAMINOPHEN 325 MG TABLET PO PRN (23:38)
[2022-06-04] MEDS: Meropenem 1,000 MG in NA CHLORIDE 0.9% 100 ML IV SCH ×3 (01:00→16:57)
[2022-06-04] MEDS ORDERED: Meropenem 1000 MG/VIAL IV ONE ×2 (02:04→08:53)
[2022-06-04] MEDS ORDERED: NA CHLORIDE 0.9% 100 ML IV ONE ×3 (02:04→08:53)
[2022-06-04 03:08] LABS: Absolute Lymphocytes (CBC) 2.9 K/uL (0.7-4.9); Hematocrit 38.8 % (36.0-45.0); Lymphocytes % 28.9 % (15.3-44.8); MCV 92.3 fL (80-100); MPV 8.9 fL (7.6-11.3); RBC Red Blood Cell Count 4.21 M/uL (3.86-4.86)
[2022-06-04 03:18] LABS: Magnesium 1.7 mg/dL (1.8-2.4); Phosphorus 3.5 mg/dL (2.5-4.9); Potassium 3.7 mmol/L (3.5-5.1)
[2022-06-04] MEDS ORDERED: MAGNESIUM SULFATE 1 gm IVPB 1 GM/100 ML BAG IV ONE ×2 (04:32→06:48)
[2022-06-04] MEDS ORDERED: ACETAMINOPHEN 325 MG TABLET ONE ×2 (06:48→12:57)
[2022-06-04] MEDS: ACETAMINOPHEN 325 MG TABLET PO PRN ×2 (06:59→12:58)
[2022-06-04] MEDS: INSULIN -REGULAR HUMAN 50 UNIT/0.5 ML ML SQ SCH ×4 (07:30→21:00)
[2022-06-04] MEDS ORDERED: POTASSIUM CL SA 10 MEQ TAB PO ONE (15:54)
--- NOTE | 2022-06-04 16:38 | ER ---
Nurse's Notes [facility] Name: Maria Teresa Harrison Age: 77 yrs Sex: Female : 1945 Arrival Date: 06/03/2022 Time: 17:41 Bed 25 Private MD: Diagnosis: Cellulitis of other sites;Heel Ulceration;Buttock ulcerations;Obesity, unspecified Presentation: 06/03 18:16 Chief complaint: Sent by Dr. Mosquera for bilateral lower extremity cellulitis. hb Coronavirus screen: At this time, the client does not indicate any symptoms associated with coronavirus-19. Ebola Screen: No symptoms or risks identified at this time. Initial Sepsis Screen: Does the patient meet any 2 criteria? No. Patient's initial sepsis screen is negative. Does the patient have a suspected source of infection? No. Patient's initial sepsis screen is negative. Risk Assessment: Do you want to hurt yourself or someone else? Patient reports no desire to harm self or others. Onset of symptoms was June 03, 2022. 18:16 Method Of Arrival: Wheelchair hb 18:16 Acuity: MILTON 3 hb Historical: - Allergies: 18:17 Hydrocodone-Acetaminophen; hb 18:17 Levaquin; hb 18:17 PENICILLINS; hb - PMHx: 18:17 Cellulitis; diabetes mellitus; Hypertension; hb - PSHx: 18:17 hearth cath; ovarian cancer; Total abdominal hysterectomy; wrist SX; hb - Immunization history:: Adult Immunizations up to date. - Social history:: Smoking status: Patient denies any tobacco usage or history of. Screenin:23 Abuse screen: Denies threats or abuse. Denies injuries from another. Nutritional hb screening: No deficits noted. Tuberculosis screening: No symptoms or risk factors identified. Fall Risk Total Torres Fall Scale indicates Low Risk Score (25-44 pts). Fall prevention measures have been instituted. Side Rails Up X 2 1:1 attendant Assigned to Pt. As available Patient and Family Educated on Fall Prevention Program and strategies. Assessment: 20:02 General: Appears comfortable, obese, unkempt, Behavior is calm, cooperative. Pain: kl Complains of pain in generalized pain. Neuro: No deficits noted. Cardiovascular: Rhythm is atrial fibrillation With PVC's. Respiratory: Airway is patent Trachea midline Respiratory effort is even, unlabored, Respiratory pattern is regular, symmetrical. GI: No deficits noted. No signs and/or symptoms were reported involving the gastrointestinal system. : No deficits noted. No signs and/or symptoms were reported regarding the genitourinary system. pure wick in place. EENT: No deficits noted. No signs and/or symptoms were reported regarding the EENT system. Derm: bilateral lower extremity redness swelling quarter size wound noted to right heel no drainage appreciated. Vital Signs: 18:16 BP 151 / 82; Pulse 104; Resp 17; Temp 98.4(O); Pulse Ox 100% ; Pain 3/10; hb 20:05 BP 132 / 61; Pulse 98; Resp 22; Pulse Ox 91% on R/A; ED Course: 17:41 Patient arrived in ED. jj6 17:45 Zeeshan Dumont DO is Attending Physician. ms3 17:59 Yrn Sue MD is Hospitalizing Provider. ms3 18:15 Darshana Toussaint, RN is Primary Nurse. hb 18:17 Triage completed. hb 18:17 Arm band placed on. hb 18:23 Patient has correct armband on for positive identification. 20:05 No provider procedures requiring assistance completed. Patient admitted, IV remains in kl place. 20:06 Blood Culture Adult (2) Sent. Administered Medications: 19:55 Drug: Meropenem 1 grams Route: IV; Rate: calculated rate; Site: left wrist; Medication: 20:06 VIS not applicable for this client. Outcome: 18:01 Decision to Hospitalize by Provider. ms3 20:05 Admitted to ER Hold. Please see [facility] for further documentation. 20:05 Condition: stable 20:05 Discharge instructions given to patient, Instructed on the need for admit, Demonstrated understanding of instructions. 06/04 16:38 Patient left the ED. jl7 Signatures: Sarika Gallego RN RN Darshana Toussaint RN SHREYAS Kaleb Royal RN RN jl7 Zeeshan Dumont DO DO ms3 Asia Brandon jj6
[2022-06-04] MEDS ORDERED: MORPHINE 2 MG/ML SYR IV PRN (17:28)
[2022-06-04] MEDS: ACETAMINOPHEN 500 MG TAB PO PRN (19:11)
[2022-06-04 20:38] LABS: Specific Gravity 1.011 (1.005-1.030); Urine Bilirubin NEGATIVE (Negative); Urine Blood Negative (Negative); Urine Clarity Clear (Clear); Urine Color Colorless (Yellow); Urine Glucose NEGATIVE (Negative); Urine Mucus Slight /HPF (None Seen); Urine Protein NEGATIVE (Negative); Urine RBC <5 /HPF (None Seen); Urine Urobilinogen Normal (Normal)
[2022-06-05] MEDS ORDERED: Meropenem 1000 MG/VIAL IV ONE ×2 (00:02→07:33)
[2022-06-05] MEDS: Meropenem 1,000 MG in NA CHLORIDE 0.9% 100 ML IV SCH ×3 (00:10→16:27)
[2022-06-05] MEDS: ACETAMINOPHEN 500 MG TAB PO PRN ×4 (00:45→18:45)
[2022-06-05] MEDS ORDERED: NA CHLORIDE 0.9% 100 ML ONE ×2 (07:23)
[2022-06-05] MEDS: INSULIN -REGULAR HUMAN 50 UNIT/0.5 ML ML SQ SCH ×4 (07:30→21:00)
[2022-06-05 07:32] LABS: Potassium 4.3 mmol/L (3.5-5.1)
[2022-06-05] MEDS: METFORMIN HCL 500 MG TAB PO SCH ×2 (07:41→16:27)
[2022-06-05] MEDS: APIXABAN 5 MG TABLET PO SCH ×2 (07:41→22:21)
[2022-06-05] MEDS: carvediloL 12.5 MG TAB PO SCH ×2 (08:19→22:21)
[2022-06-05 10:09] VITALS: O2SAT 91
--- NOTE | 2022-06-05 12:23 | RAD REPORT ---
EXAM DESCRIPTION: XR Chest, 1 View CLINICAL HISTORY: The patient is 77 years old and is Female; S/P PICC insertion TECHNIQUE: Frontal view of the chest. COMPARISON: No relevant prior studies available. FINDINGS: LUNGS: Prominence of pulmonary vasculature and central interstitial bilaterally, favorin g central pulmonary edema. No focal consolidation. PLEURAL SPACE: No appreciated pleural effusion. No pneumothorax. HEART: Unremarkable. No cardiomegaly. MEDIASTINUM: Calcified atherosclerosis of the thoracic aorta. BONES/JOINTS: Multilevel spondylosis. Bilateral shoulder degenerative changes. TUBES, LINES AND DEVICES: Right upper extremity PICC tip is obscured secondary to overlying osseous structures, but appears to terminate within the mid to distal SVC. IMPRESSION: 1. Prominence of pulmonary vasculature and central interstitial bilaterally, favoring central pulmonary edema. 2. Right upper extremity PICC tip is obscured secondary to overlying osseous structures, but appear s to terminate within the mid to distal SVC. 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 The interpreting radiologist is fully responsible for the content of the report.
[2022-06-05] MEDS: JUVEN PACKET PO SCH (21:00)
[2022-06-05] MEDS: HYDROMORPHONE HCL 0.5 MG/0.5 ML INJ IV PRN (22:20)
[2022-06-06] MEDS: ACETAMINOPHEN 500 MG TAB PO PRN (01:58)
[2022-06-06] MEDS: Meropenem 1,000 MG in NA CHLORIDE 0.9% 100 ML IV SCH ×2 (01:59→08:33)
[2022-06-06] MEDS: HYDROMORPHONE HCL 0.5 MG/0.5 ML INJ IV PRN ×2 (04:42→11:30)
[2022-06-06] MEDS: INSULIN -REGULAR HUMAN 50 UNIT/0.5 ML ML SQ SCH ×2 (07:30→11:30)
--- NOTE | 2022-06-06 08:18 | CON ---
History Of Present Illness: This is a 77-year-old female, who was brought back for IV antibiotic as patient's wounds to the back, buttock region, and thigh region grew multi-organism; right buttock wit h E coli, Proteus cellulitis; left buttock with Proteus vulgaris; left foot with Staph aureus and Pse udomonas, Proteus vulgaris, and Pseudomonas requiring carbapenem treatment. The patient is currently being treated with meropenem. No new wounds. The patient does complain of some shortness of breath on exertion. Otherwise, no chest pain, back pain, abdominal pain, or lower extremity pain. Past Medical History: Diabetes mellitus, hypertension, lymphedema, hysterectomy, ovarian cancer, freya ast surgery, stasis dermatitis, atrial fibrillation. Social History: Nonsmoker, nondrinker. Family History: Lung cancer, heart disease, diabetes mellitus. Medication: Meropenem. See MAR for other medications. Allergies: CODEINE, ERYTHROMYCIN, LEVAQUIN, PENICILLIN. Review of Systems: A 10-point review was performed. Physical Examination: General: This is a 77-year-old female, lying in bed, not in any acute cardiopulmonary distress, on 2 L nasal cannula. Vital Signs: Temperature 97.7, pulse 78, respirations 18, blood pressure 140/70. HEENT: Unremarkable. Neck: Supple. Lungs: Basal crackles. Heart: S1, S2. Regular. Abdomen: Soft. Bowel sounds present. Obese. Extremities: 3+ nonpitting edema with hyperkeratotic lesions noted all across calf and front of tib- fib area. Ulceration also noted on both heels. Buttock wounds have healed with recurrent erythemato us and moisture damage noted in buttock and thigh region. Laboratory Data: Shows WBC 10.1, down from 11.7; hemoglobin 12.7; platelet 168. Chemistry shows sod ium 137, potassium 3.7, chloride 103, bicarb 29, BUN 18, creatinine 0.9, glucose 135. Micro data; bl ood cultures are negative. Right buttock wound cultures grew E coli with Proteus vulgaris. Left nedra t wound, Staph aureus, Pseudomonas. Left buttock grew Proteus mirabilis with gram-negative rods. Wo unds are healing well. Assessment And Plan: Bilateral buttock and thigh wounds are healing well. Recommend to apply rula r cream. Continue meropenem for 7 days. Bilateral lower extremity hyperkeratotic lesions. Recommen d to apply petroleum gel. Bilateral heel wound; left heel to be applied MediHoney with alginate , Sunday, Sunday for 2 weeks and follow with Wound Care. Keep legs elevated when possible. Nee ds lymphedema treatment to prevent future infections on ulceration. Chest x-ray done today shows pat ient has pulmonary vascular favoring pulmonary edema. Leukocytosis improved. Continue supportive ca re and pulmonary hygiene. Monitor for signs of infection. Thank you Dr. Mccurdy and Dr. Sue for consult. NF/MODL Voice ID: [id number] Report ID: [id number]
[2022-06-06] MEDS: carvediloL 12.5 MG TAB PO SCH (08:33)
[2022-06-06] MEDS: METFORMIN HCL 500 MG TAB PO SCH (08:34)
[2022-06-06] MEDS: APIXABAN 5 MG TABLET PO SCH (08:34)
[2022-06-06] MEDS: JUVEN PACKET PO SCH (08:34)
[2022-06-06] MEDS ORDERED: MEDIHONEY 44 ML TOPICAL TUBE TOP SCH (09:00)
[2022-06-06] MEDS ORDERED: INFLUENZA VACCINE (for 6+ mo) 0.5 ML DOSE IMVAC ONE (11:12)
[2022-06-06 11:51] VITALS: BP 135/65; TEMP 96.4
== END 2022-06-06 14:06 | disposition home health service (06) | DRG 603 ==
LOC: ER 17:32 → ERHOLD 18:18 → 2ND 06-04 16:02
PROVIDERS: ADMIT Hospitalist; ATTEND Hospitalist
PROC: 02HV33Z Insertion of Infusion Device into Superior Vena Cava, Percutaneous Approach (ICD-10-PCS; principal; 2022-06-05)
DX: L03.116 Cellulitis of left lower limb (principal); L97.429 Non-pressure chronic ulcer of left heel and midfoot with unspecified severity; L97.419 Non-pressure chronic ulcer of right heel and midfoot with unspecified severity; Z68.43 Body mass index [BMI] 50.0-59.9, adult; L03.317 Cellulitis of buttock; L03.115 Cellulitis of right lower limb; L98.419 Non-pressure chronic ulcer of buttock with unspecified severity; I10 Essential (primary) hypertension; E66.9 Obesity, unspecified; G89.29 Other chronic pain; I48.0 Paroxysmal atrial fibrillation; E11.9 Type 2 diabetes mellitus without complications; B96.20 Unspecified Escherichia coli [E. coli] as the cause of diseases classified elsewhere; B96.4 Proteus (mirabilis) (morganii) as the cause of diseases classified elsewhere; B96.5 Pseudomonas (aeruginosa) (mallei) (pseudomallei) as the cause of diseases classified elsewhere; B95.61 Methicillin susceptible Staphylococcus aureus infection as the cause of diseases classified elsewhere; Z23 Encounter for immunization; Z88.1 Allergy status to other antibiotic agents; Z88.0 Allergy status to penicillin; Z79.01 Long term (current) use of anticoagulants; Z79.84 Long term (current) use of oral hypoglycemic drugs; Z85.43 Personal history of malignant neoplasm of ovary; Z90.710 Acquired absence of both cervix and uterus; Z79.899 Other long term (current) drug therapy; Z20.822 Contact with and (suspected) exposure to COVID-19
CPT/HCPCS: 36415; 36569; 71045; 80048; 81001; 82947; 83735; 84100; 84132; 85025; 87040; 87811; 90471; 96374; 99285; J1170; J2185; J3475; Q2035

== ENCOUNTER 2022-11-09 15:43 | Inpatient (IN) | payer OTHER ==
--- NOTE | 2022-11-09 17:29 | RAD REPORT ---
EXAM DESCRIPTION: RAD - Chest Single View - 11/09/2022 5:13 pm CLINICAL HISTORY: SWELLING Chest pain. COMPARISON: Chest Single View dated 06/05/2022; Chest Single View dated 05/25/2022; Chest Pa And Lat (2 Views) dated 06/28/2018 FINDINGS: Portable technique limits examination quality. Mild to moderate pulmonary edema. The heart is moderately enlarged. No displaced fractures. IMPRESSION: Mild to moderate CHF.
--- NOTE | 2022-11-09 18:04 | RAD REPORT ---
EXAM DESCRIPTION: RAD - Foot Left 3 View - 11/09/2022 5:56 pm CLINICAL HISTORY: PAIN COMPARISON: <Comparisons> FINDINGS: Diffuse osteopenia. Large plantar calcaneal spur. No acute fracture seen. Mild flatfoot de formity is present. Moderate tarsal- metatarsal articulation.
[2022-11-09 18:49] LABS: Absolute Lymphocytes (CBC) 2.1 K/uL (0.7-4.9); Hematocrit 40.2 % (36.0-45.0); Lymphocytes % 22.7 % (15.3-44.8); MCV 91.2 fL (80-100); MPV 7.7 fL (7.6-11.3); RBC Red Blood Cell Count 4.41 M/uL (3.86-4.86)
[2022-11-09 19:08] LABS: Magnesium 1.9 mg/dL (1.6-2.4); Potassium 4.2 mEq/L (3.5-5.1); Troponin High Sensitivity 14.8 pg/mL (<58.9)
--- NOTE | 2022-11-09 19:15 | EDPHYS ---
Physician Documentation [facility] Name: Maria Teresa Harrison Age: 77 yrs Sex: Female : 1945 Arrival Date: 11/09/2022 Time: 15:43 Bed 7 Private MD: Lc Gibson ED Physician Jake Gallardo HPI: 11/09 16:33 This 77 yrs old Female presents to ER via Wheelchair with complaints of Skin Sore(s). cp 16:35 The patient presents with cellulitis of the right lower leg and left lower leg. cp 16:35 Description: draining, erythematous, swollen, warm. Onset: The symptoms/episode cp began/occurred gradually. Associated signs and symptoms: Pertinent positives: shortness of breath, Pertinent negatives: fever. Patient reports she was referred to ED by wound care due to concern for infection of lower legs. Patient reports purulent drainage, increased redness and pain. Historical: - Allergies: 16:14 Hydrocodone-Acetaminophen; aa5 16:14 Levaquin; aa5 16:14 PENICILLINS; aa5 16:17 Erythromycin; aa5 - PMHx: 16:14 Cellulitis; diabetes mellitus; Hypertension; aa5 - PSHx: 16:14 hearth cath; ovarian cancer; Total abdominal hysterectomy; wrist SX; aa5 - Immunization history:: Adult Immunizations unknown. - Social history:: Smoking status: Patient denies any tobacco usage or history of. ROS: 16:40 Constitutional: Negative for body aches, chills, fever, poor PO intake. cp 16:40 Eyes: Negative for injury, pain, redness, and discharge. cp 16:40 ENT: Negative for drainage from ear(s), ear pain, sore throat, difficulty swallowing, difficulty handling secretions. 16:40 Cardiovascular: Positive for edema, Negative for chest pain, palpitations. 16:40 Respiratory: Positive for shortness of breath, on exertion. Negative for cough, wheezing. 16:40 Abdomen/GI: Negative for abdominal pain, vomiting, diarrhea, constipation. 16:40 Neuro: Negative for altered mental status, headache, weakness. 16:40 All other systems are negative. Exam: 16:45 Constitutional: The patient appears in no acute distress, alert, awake, cp non-diaphoretic, non-toxic, well developed, well nourished, morbid obesity 16:45 Head/Face: Normocephalic, atraumatic. cp 16:45 Eyes: Periorbital structures: appear normal, Conjunctiva: normal, no exudate, no injection, Sclera: no appreciated abnormality, Lids and lashes: appear normal, bilaterally. 16:45 ENT: External ear(s): are unremarkable, Nose: is normal, Mouth: Lips: moist, Oral mucosa: pink and intact, moist, Posterior pharynx: is normal, airway is patent, no erythema, no exudate. 16:45 Neck: ROM/movement: is normal, is supple, without pain, no range of motions limitations. 16:45 Chest/axilla: Inspection: normal. 16:45 Cardiovascular: Rate: normal, Rhythm: irregular, Edema: ankle edema, that is marked, JVD: is not appreciated. 16:45 Respiratory: the patient does not display signs of respiratory distress, Respirations: labored breathing, that is mild, Breath sounds: decreased breath sounds, that are moderate, throughout, stridor, is not appreciated, wheezing: is not appreciated. 16:45 Abdomen/GI: Inspection: obese Palpation: abdomen is soft and non-tender, in all quadrants. 16:45 Skin: cellulitis, that is moderate, well demarcated, on the right foot and left foot and right lower leg and left lower leg, 2 quarter size superficial open wounds noted anterior right lower leg with scant drainage, large superficial wound noted medial aspect heel of left foot. 16:45 Neuro: Orientation: to person, place \T\ time. Mentation: is normal, Motor: moves all fours, strength is normal. Vital Signs: 16:14 BP 104 / 72; Pulse 93; Resp 18 S; Temp 98.4(O); Pulse Ox 90% on R/A; aa5 17:57 BP 157 / 86; Pulse 94; Resp 21; Pulse Ox 96% on R/A; Pain 0/10; ld1 17:57 Pain Scale: Adult ld1 MDM: 16:14 Patient medically screened. cp 19:25 Data reviewed: vital signs, nurses notes, lab test result(s), EKG, radiologic studies, cp plain films, ultrasound. 19:25 Consideration of Admission/Observation Patient was admitted/placed on observation. cp Management of patient was discussed with the following: Primary Care Provider: DR Gibson \T\191 will admit patient after discussion of today's results for observation. Care significantly affected by the following chronic conditions: Diabetes, Hypertension, Congestive Heart Failure, Obesity. Counseling: I had a detailed discussion with the patient and/or guardian regarding: the historical points, exam findings, and any diagnostic results supporting the discharge/admit diagnosis, lab results, radiology results. Admission orders: after a detailed discussion of the patient's condition and case, the admit orders are written by me. 05 16:27 Order name: Basic Metabolic Panel; Complete Time: 19:09 cp 05/ 19:09 Interpretation: Normal except: NA 135; GLUC 161; BUN 22; GFR 63. cp / 16:27 Order name: CBC with Diff; Complete Time: 18:57 cp 11/09 18:57 Interpretation: Normal except: RDW 16.5. cp / 16:27 Order name: Magnesium; Complete Time: 19:09 cp 11/09 16:27 Order name: NT PRO-BNP; Complete Time: 19:09 cp 11/09 19:10 Interpretation: Abnormal: NT PRO-BNP 1611. cp / 16:27 Order name: Troponin HS; Complete Time: 19:09 cp 11/09 19:23 Interpretation: Reviewed. cp 11/09 17:35 Order name: Lactate w/ 2H reflex if indic.; Complete Time: 19:22 cp 05/ 19:23 Interpretation: Reviewed. cp 05/ 17:35 Order name: Wound Culture cp 11/09 17:35 Order name: Blood Culture Adult (2) cp / 19:32 Order name: Basic Metabolic Panel EDMS 11/09 19:32 Order name: Basic Metabolic Panel EDMS / 19:32 Order name: CBC with Automated Diff EDMS 11/09 19:32 Order name: CBC with Automated Diff EDMS / 16:27 Order name: XRAY Chest (1 view); Complete Time: 18:57 cp / 18:57 Interpretation: Report review. cp 11/09 17:32 Order name: US Extremity Venous W Compression Baljit; Complete Time: 19:22 cp / 19:23 Interpretation: Report reviewed. cp 11/09 17:32 Order name: Lower Extremity Arterial Bilat US; Complete Time: 19:22 cp 05/ 19:23 Interpretation: Report reviewed. cp 11/09 17:32 Order name: XRAY Foot LEFT 3 View; Complete Time: 18:57 cp 11/09 18:57 Interpretation: Reviewed report. cp 11/09 16:27 Order name: EKG; Complete Time: 16:28 cp 11/09 19:32 Order name: Heart Healthy EDMS 11/09 16:27 Order name: Cardiac monitoring; Complete Time: 17:49 cp 11/09 16:27 Order name: EKG - Nurse/Tech; Complete Time: 17:49 cp 11/09 16:27 Order name: IV Saline Lock; Complete Time: 19:37 cp 11/09 16:27 Order name: Labs collected and sent; Complete Time: 19:14 cp 11/09 16:27 Order name: O2 Per Protocol; Complete Time: 17:07 cp 11/09 16:27 Order name: O2 Sat Monitoring; Complete Time: 17:07 cp Administered Medications: 19:37 Drug: Furosemide IVP 40 mg Route: IVP; Site: right antecubital; as6 20:43 Follow up: Response: No adverse reaction as6 20:34 Drug: Ciprofloxacin IVPB 400 mg Volume: 200 ml; Route: IVPB; Infused Over: 60 mins; as6 Site: right antecubital; 20:43 Follow up: Response: No adverse reaction; IV Status: Completed infusion; IV Intake: as6 200ml 20:35 Drug: fentaNYL (PF) IVP 25 mcg Route: IVP; Site: right antecubital; as6 20:42 Follow up: Response: No adverse reaction as6 Disposition Summary: 11/09/22 19:15 Hospitalization Ordered Hospitalization Status: Observation cp Provider: Lc Gibson cp Location: Telemetry/MedSurg (observation) cp Condition: Stable cp Problem: an ongoing problem cp Symptoms: have improved cp Bed/Room Type: Standard cp Room Assignment: 206(11/09/22 19:41) mw Diagnosis - Cellulitis of left lower limb cp - Cellulitis of right lower limb cp - Unspecified combined systolic (congestive) and diastolic (congestive) heart failure cp - Shortness of breath cp Forms: - Medication Reconciliation Form cp - SBAR form cp Addendum: 11/14/2022 09:05 Co-signature as Attending Physician, Jake Gallardo MD I reviewed the patient's care r n provided by the Advanced Practice Provider and agree with the diagnosis and treatment plan. Signatures: Dispatcher [employer] Mary Ford RN RN Jake Chirinos MD MD rn Calderon, Audri, RN RN aa5 Walter Mckeon PA PA cp Slawson, Ashby, RN RN as6 Corrections: (The following items were deleted from the chart) 11/09 19:41 19:15 eloy trejo
--- NOTE | 2022-11-09 19:15 | ER ---
Nurse's Notes [facility] Name: Maria Teresa Harrison Age: 77 yrs Sex: Female : 1945 Arrival Date: 11/09/2022 Time: 15:43 Bed 7 Private MD: Lc Gibson Diagnosis: Cellulitis of left lower limb;Cellulitis of right lower limb;Unspecified combined systolic (congestive) and diastolic (congestive) heart failure;Shortness of breath Presentation: 11/09 16:14 Chief complaint: Patient states: sent here by home health and wound care center for aa5 worsening of wound infection to left leg. 16:14 Coronavirus screen: At this time, the client does not indicate any symptoms associated aa5 with coronavirus-19. Ebola Screen: Patient denies travel to an Ebola-affected area in the 21 days before illness onset. Initial Sepsis Screen: Does the patient meet any 2 criteria? No. Patient's initial sepsis screen is negative. Does the patient have a suspected source of infection? Yes:. Risk Assessment: Do you want to hurt yourself or someone else? Patient reports no desire to harm self or others. Onset of symptoms was November 09, 2022. 16:14 Acuity: MILTON 3 aa5 16:14 Method Of Arrival: Wheelchair aa5 Historical: - Allergies: 16:14 Hydrocodone-Acetaminophen; aa5 16:14 Levaquin; aa5 16:14 PENICILLINS; aa5 16:17 Erythromycin; aa5 - PMHx: 16:14 Cellulitis; diabetes mellitus; Hypertension; aa5 - PSHx: 16:14 hearth cath; ovarian cancer; Total abdominal hysterectomy; wrist SX; aa5 - Immunization history:: Adult Immunizations unknown. - Social history:: Smoking status: Patient denies any tobacco usage or history of. Screenin:[facility] ED Fall Risk Assessment (Adult) History of falling in the last 3 months, ld1 including since admission No falls in past 3 months (0 pts). Abuse screen: Denies threats or abuse. Denies injuries from another. Nutritional screening: No deficits noted. Tuberculosis screening: No symptoms or risk factors identified. Assessment: 17:57 General: Appears in no apparent distress. comfortable, Behavior is calm, cooperative, ld1 appropriate for age. Pain: Denies pain. Neuro: Level of Consciousness is awake, alert, obeys commands, Oriented to person, place, time, situation. Cardiovascular: Capillary refill < 3 seconds Patient's skin is warm and dry. Rhythm is atrial fibrillation. Respiratory: Airway is patent Respiratory effort is even, labored. GI: Abdomen is round obese. : No signs and/or symptoms were reported regarding the genitourinary system. EENT: No signs and/or symptoms were reported regarding the EENT system. Derm: Wound noted medial aspect of left heel, instep of left foot, right leg and left leg. Musculoskeletal: No signs and/or symptoms reported regarding the musculoskeletal system. Vital Signs: 16:14 BP 104 / 72; Pulse 93; Resp 18 S; Temp 98.4(O); Pulse Ox 90% on R/A; aa5 17:57 BP 157 / 86; Pulse 94; Resp 21; Pulse Ox 96% on R/A; Pain 0/10; ld1 17:57 Pain Scale: Adult ld1 ED Course: 16:07 Patient arrived in ED. mr 16:07 Lc Gibson MD is Private Physician. mr 16:07 [facility]. cp 16:07 Walter Suarez MD is Attending Physician. cp 16:09 Jake Gallardo MD is Attending Physician. cp 16:14 Arm band placed on. aa5 16:16 Triage completed. aa5 17:15 XRAY Chest (1 view) In Process Unspecified. EDMS 17:48 Olga Dumont, RN is Primary Nurse. ld1 17:57 Patient has correct armband on for positive identification. Placed in gown. Bed in low ld1 position. Call light in reach. Side rails up X2. monitoring coordinator on. Pulse ox on. NIBP on. Door closed. Noise minimized. Warm blanket given. 17:57 Wound Culture Sent. ld1 17:58 XRAY Foot LEFT 3 View In Process Unspecified. EDMS 18:40 US Extremity Venous W Compression Baljit In Process Unspecified. EDMS 18:40 Lower Extremity Arterial Bilat US In Process Unspecified. EDMS 19:14 Lc Gibson MD is Hospitalizing Provider. cp 19:37 Inserted saline lock: 20 gauge in right antecubital area, using aseptic technique. as6 ultrasound guided. 20:20 Primary Nurse role handed off by Olga Dumont, SHREYAS 20:43 No provider procedures requiring assistance completed. Patient admitted, IV remains in as6 place. Administered Medications: 19:37 Drug: Furosemide IVP 40 mg Route: IVP; Site: right antecubital; as6 20:43 Follow up: Response: No adverse reaction as6 20:34 Drug: Ciprofloxacin IVPB 400 mg Volume: 200 ml; Route: IVPB; Infused Over: 60 mins; as6 Site: right antecubital; 20:43 Follow up: Response: No adverse reaction; IV Status: Completed infusion; IV Intake: as6 200ml 20:35 Drug: fentaNYL (PF) IVP 25 mcg Route: IVP; Site: right antecubital; as6 20:42 Follow up: Response: No adverse reaction as6 Medication: 20:43 VIS not applicable for this client. as6 Intake: 20:43 IV: 200ml; Total: 200ml. as6 Outcome: 19:15 Decision to Hospitalize by Provider. cp 20:43 Admitted to [facility] as6 20:43 Condition: stable 20:43 Patient left the ED. as6 Signatures: Dispatcher [employer] FRANCHESKA Jorje Colette MattaMattie RN RN aa5 Walter Mckeon PA PA cp Olga Dumont, SHREYAS RN ld1 Jelena Garcia Emeterio Robledo RN RN as6 Corrections: (The following items were deleted from the chart) 16:19 16:14 Resp 18bpm; Spontaneous; Temp 98.4F Oral; aa5 aa5
--- NOTE | 2022-11-09 19:16 | RAD REPORT ---
EXAM DESCRIPTION: US - Lower Extremity Arterial Bilat - 11/09/2022 6:38 pm CLINICAL HISTORY: PAIN COMPARISON: <Comparisons> TECHNIQUE: Bilateral lower extremity arterial Doppler examination was performed with colin luna FINDINGS: Triphasic waveforms are seen throughout both lower extremity arterial systems to the level of the pop liteal arteries. Infrapopliteal arteries bilaterally demonstrate monophasic flow. No occlusion identified. IMPRESSION: Mild to moderate peripheral vascular disease is seen bilateral infrapopliteal vessels. No complete occlusion seen.
--- NOTE | 2022-11-09 19:17 | RAD REPORT ---
EXAM DESCRIPTION: US - Extrem Venous W Compress Baljit - 11/09/2022 6:38 pm CLINICAL HISTORY: PAIN Bilateral leg edema and swelling. COMPARISON: <Comparisons> TECHNIQUE: Real-time sonographic interrogation of the left and right lower extremity deep venous sys tems was performed. FINDINGS: Normal compressibility, flow augmentation, phasic flow and spontaneous flow is identified in both the left and right lower extremity deep venous systems. IMPRESSION: No sonographic evidence of left or right lower extremity deep venous thrombosis.
[2022-11-09] MEDS ORDERED: FUROSEMIDE 40 MG/4 ML VIAL ONE (19:26)
[2022-11-09] MEDS ORDERED: CIPROFLOXACIN 400mg IV 400 MG/200 ML BAG IV ONE (19:26)
[2022-11-09] MEDS ORDERED: ONDANSETRON 4 MG/2 ML VIAL IV PRN (19:28)
[2022-11-09] MEDS ORDERED: FENTANYL CITR 100 MCG/2 ML ONE (20:36)
[2022-11-09 21:46] VITALS: BMI 57.3
[2022-11-09] MEDS: APIXABAN 5 MG TABLET PO SCH (22:21)
[2022-11-09] MEDS: METFORMIN HCL 500 MG TAB PO SCH (22:31)
[2022-11-09] MEDS: carvediloL 12.5 MG TAB PO SCH (22:31)
--- NOTE | 2022-11-10 05:49 | EKG ---
Test Date: 2022-11-09 Test Time: 17:44:56 Mortgage Funder: Didier SOL MEASUREMENT RESULTS: Intervals: Rate: 97 NH: QRSD: 84 QT: 346 QTc: 439 Sinclair: P: NH: QRS: 128 T: 15 INTERPRETIVE STATEMENTS: Atrial fibrillation Right axis deviation Septal infarct, age undetermined Abnormal ECG Compared to ECG 05/25/2022 18:03:07 Right-axis deviation now present Ventricular premature complex(es) no longer present Myocardial infarct finding still present Electronically Signed On 11-10-22 05:48:36 CDT by Barney Escamilla
[2022-11-10] MEDS: carvediloL 12.5 MG TAB PO SCH ×3 (06:00→20:36)
[2022-11-10] MEDS: ACETAMINOPHEN 500 MG TAB PO PRN ×3 (06:00→21:23)
[2022-11-10] MEDS ORDERED: TRAMADOL HCL 50 MG TAB PO PRN (06:39)
[2022-11-10] MEDS ORDERED: IBUPROFEN 600 MG TAB PO PRN (06:43)
[2022-11-10 07:48] LABS: Potassium 4.2 mEq/L (3.5-5.1)
[2022-11-10 07:56] LABS: Absolute Lymphocytes (CBC) 2.4 K/uL (0.7-4.9); Hematocrit 39.9 % (36.0-45.0); Lymphocytes % 30.9 % (15.3-44.8); MCV 91.5 fL (80-100); MPV 7.8 fL (7.6-11.3); RBC Red Blood Cell Count 4.36 M/uL (3.86-4.86)
[2022-11-10] MEDS: FUROSEMIDE 20 MG TABLET PO SCH ×2 (09:02→17:03)
[2022-11-10] MEDS: APIXABAN 5 MG TABLET PO SCH ×2 (09:02→20:36)
[2022-11-10] MEDS: METFORMIN HCL 500 MG TAB PO SCH ×2 (09:02→17:02)
[2022-11-10] MEDS: CIPROFLOXACIN 400mg IV 400 MG/200 ML BAG IV SCH ×2 (09:03→20:36)
--- NOTE | 2022-11-10 18:10 | P.HP ---
Certification for Inpatient Patient admitted to: Inpatient With expected LOS: <2 Midnights Patient will require the following post-hospital care: Home Health Services Practitioner: I am a practitioner with admitting privileges, knowledge of patient current condition, hospital course, and medical plan of care. Services: Services provided to patient in accordance with Admission requirements found in Title 42 Section 412.3 of the Code of Federal Regulations Patient History Date of Service: 11/09/22 Primary Care Provider: Arthur Reason for admission: Cellulitis History of Present Illness: Patient is a wound care patient of mine. she was recently seen in wound care. Has pseudomonas grow out of he culture. Her home health nurse felt there was puss coming from her left heel wound. She was sent to the ER. The patient also had some drainage of the left ankle with greenish discoloration. I had been sent a picture of the left heel wound. Seems a sebaceous substance Not pus The patient was admitted for iv cipro. Allergies codeine Allergy (Verified 11/09/22 22:35) Itching erythromycin base Allergy (Verified 11/09/22 22:35) Itching levofloxacin [From Levaquin] Allergy (Verified 11/09/22 22:35) Itching Penicillins Adverse Reaction (Verified 11/09/22 22:35) Hives Home Medications: carvediloL [Coreg*] 12.5 mg PO BID #60 tab 07/01/18 Metformin HCl 500 mg PO BID 05/26/22 Apixaban [Eliquis] 5 mg PO BID #60 tab 05/27/22 Ayan [Ayan*] 1 pkt PO BID #60 packet 06/06/22 Hydromorphone HCl [Dilaudid] 1 tab PO Q4HR 11/09/22 - Past Medical/Surgical History Has patient received pneumonia vaccine in the past: Yes Diabetic: Yes -: Ovarian Cancer -: Diabetes mellitus type [id number] -: Hypertension -: Atrial Fibrillation -: cellulitis -: Hysterectomy -: Wrist surgery Psychosocial/ Personal History: Patient lives at home with her - Family History Mother -: Lung disease, Cancer Notes: lung cancer Father -: Heart disease, Lung disease, Diabetes Notes: COPD, CHF, DM - Social History Smoking Status: Never smoker Alcohol use: No CD- Drugs: Yes Caffeine use: No Place of Residence: Home Review of Systems 10-point ROS is otherwise unremarkable Integumentary: Other (cellulitis of the left ankle ) Physical Examination - Vital Signs Temperature: 98.2 F Blood Pressure: 138/71 Pulse: 82 Respirations: 16 Pulse Ox (%): 93 - Physical Exam General: Alert, In no apparent distress HEENT: Atraumatic, PERRLA, Mucous membr. moist/pink, EOMI, Sclerae nonicteric Neck: Supple, 2+ carotid pulse no bruit, No LAD, Without JVD or thyroid abnormality Respiratory: Clear to auscultation bilaterally, Normal air movement Cardiovascular: Regular rate/rhythm, Normal S1 S2 Gastrointestinal: Normal bowel sounds, No tenderness Musculoskeletal: No tenderness Integumentary: No rashes, Skin breakdown, Tenderness/swelling (left ankle ), Erythema (left ankle) Neurological: Normal gait, Normal speech, Normal strength at 5/5 x4 extr, Normal tone, Normal affect Lymphatics: No axilla or inguinal lymphadenopathy - Studies Laboratory Data (last 24 hrs) 11/09/22 18:35: WBC 9.00, Hgb 13.0, Hct 40.2, Plt Count 155 11/09/22 18:35: Sodium 135 L, Potassium 4.2, BUN 22 H, Creatinine 0.94, Glucose 161 H, Magnesium 1.9 Microbiology Data (last 24 hrs): 11/09/22 17:54 Wound - Left Heel Gram Stain - Final Assessment and Plan - Problems (Diagnosis) (1) Cellulitis of left ankle Current Visit: Yes Status: Acute Plan: will admit the patient start her on iv cipro and follow culture reports. (2) Type 2 diabetes mellitus with foot ulcer Current Visit: Yes Status: Acute Plan: left heel wound is clean and dry. 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 Will adjust as needed Qualifiers: Hypertension type: primary hypertension Qualified Code(s): I10 - Essential (primary) hypertension Discharge Plan: Home Plan to discharge in: 48 Hours - Advance Directives Does patient have a Living Will: No Does patient have a Durable POA for Healthcare: No - Code Status/Comfort Care Code Status Assessed: Yes Code Status: Full Code Physician Review: Patient Assessed, Agree with Above Assessment and Plan Critical Care: No Time Spent Managing Pts Care (In Minutes): 65
--- NOTE | 2022-11-10 18:13 | P.PN ---
Subjective Date of Service: 11/10/22 Primary Care Provider: Arthur Chief Complaint: Cellulitis Subjective: No new changes Review of Systems 10-point ROS is otherwise unremarkable Integumentary: Other (cellulitis of the left ankle ) Physical Examination - Vital Signs Temperature: 98.2 F Blood Pressure: 138/71 Pulse: 82 Respirations: 16 Pulse Ox (%): 93 - Physical Exam General: Alert, In no apparent distress HEENT: Atraumatic, PERRLA, EOMI Neck: Supple, JVD not distended Respiratory: Clear to auscultation bilaterally, Normal air movement Cardiovascular: Regular rate/rhythm, Normal S1 S2 Gastrointestinal: Normal bowel sounds, No tenderness Musculoskeletal: No tenderness Integumentary: No rashes Neurological: Normal speech, Normal tone, Normal affect Lymphatics: No axilla or inguinal lymphadenopathy - Studies Laboratory Data (last 24 hrs) 11/09/22 18:35: WBC 9.00, Hgb 13.0, Hct 40.2, Plt Count 155 11/09/22 18:35: Sodium 135 L, Potassium 4.2, BUN 22 H, Creatinine 0.94, Glucose 161 H, Magnesium 1.9 Microbiology Data (last 24 hrs): 11/09/22 17:54 Wound - Left Heel Gram Stain - Final Assessment And Plan - Current Problems (Diagnosis) (1) Cellulitis of left ankle Current Visit: Yes Status: Acute Plan: will admit the patient start her on iv cipro and follow culture reports. (2) Type 2 diabetes mellitus with foot ulcer Current Visit: Yes Status: Acute Plan: left heel wound is clean and dry. 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 Will adjust as needed Qualifiers: Hypertension type: primary hypertension Qualified Code(s): I10 - Essential (primary) hypertension Discharge Plan: Home Plan to discharge in: 24 Hours - Code Status/Comfort Care Code Status Assessed: No Physician Review: Patient Assessed, Agree with Above Assessment and Plan Critical Care: No Time Spent Managing PTS Care (In Minutes): 20
[2022-11-10] MEDS: JUVEN PACKET PO SCH (20:37)
[2022-11-10 23:16] VITALS: O2SAT 96
[2022-11-11] MEDS: ACETAMINOPHEN 500 MG TAB PO PRN (06:44)
[2022-11-11 06:57] LABS: Absolute Lymphocytes (CBC) 2.5 K/uL (0.7-4.9); Hematocrit 38.5 % (36.0-45.0); Lymphocytes % 34.2 % (15.3-44.8); MPV 7.9 fL (7.6-11.3); RBC Red Blood Cell Count 4.27 M/uL (3.86-4.86)
[2022-11-11 07:10] LABS: Albumin 2.9 g/dL (3.4-5.0); Bilirubin Total 0.5 mg/dL (0.2-1.0); Potassium 4.1 mEq/L (3.5-5.1); Protein, Total 7.5 g/dL (6.4-8.2)
[2022-11-11] MEDS ORDERED: METFORMIN HCL 500 MG TAB PO SCH (08:00)
[2022-11-11] MEDS: APIXABAN 5 MG TABLET PO SCH (08:53)
[2022-11-11] MEDS: JUVEN PACKET PO SCH (08:54)
[2022-11-11] MEDS: FUROSEMIDE 20 MG TABLET PO SCH (08:54)
[2022-11-11] MEDS: carvediloL 12.5 MG TAB PO SCH (08:54)
[2022-11-11] MEDS: CIPROFLOXACIN 400mg IV 400 MG/200 ML BAG IV SCH (08:54)
--- NOTE | 2022-11-11 11:23 | P.DS ---
Admission Date: 11/11/22 Discharge Date: 11/11/22 Primary Care Provider: Arthur Disposition: ROUTINE DISCHARGE Discharge Condition: GOOD Reason for Admission: Cellulitis - Problems (1) Cellulitis of left ankle Current Visit: Yes Status: Acute (2) Type 2 diabetes mellitus with foot ulcer Current Visit: Yes Status: Acute Qualifiers: Diabetes mellitus mcfp insulin use: with director sales and marketing use Qualified Code(s): E11.621 - Type 2 diabetes mellitus with foot ulcer; L97.509 - Non- pressure chronic ulcer of other part of unspecified foot with unspecified severity; Z79.4 - detention (current) use of insulin (3) Atrial fibrillation Current Visit: No Status: Chronic Qualifiers: Atrial fibrillation type: paroxysmal Qualified Code(s): I48.0 - Paroxysmal atrial fibrillation (4) Hypertension Current Visit: No Status: Chronic Qualifiers: Hypertension type: primary hypertension Qualified Code(s): I10 - Essential (primary) hypertension Brief History of Present Illness: Patient is a wound care patient of mine. she was recently seen in wound care. Has pseudomonas grow out of he culture. Her home health nurse felt there was puss coming from her left heel wound. She was sent to the ER. The patient also had some drainage of the left ankle with greenish discoloration. I had been sent a picture of the left heel wound. Seems a sebaceous substance Not pus The patient was admitted for iv cipro. Hospital Course: Patient is was admitted and started on cipro. She had been started on it as an outpatient. Her current cultures came back negative. She was quite insistent during her stay. Will discharge her on Santyl and follow up with me or another doctor as needed Vital Signs/Physical Exam: Temp Pulse Resp BP Pulse Ox 97.9 F 74 18 145/67 H 92 11/11/22 08:00 11/11/22 08:00 11/11/22 08:00 11/11/22 08:00 11/11/22 08:00 General: Alert, In no apparent distress HEENT: Atraumatic, PERRLA, EOMI Neck: Supple, JVD not distended Respiratory: Clear to auscultation bilaterally, Normal air movement Cardiovascular: Regular rate/rhythm, Normal S1 S2 Gastrointestinal: Normal bowel sounds, No tenderness Musculoskeletal: No tenderness Integumentary: No rashes Neurological: Normal speech, Normal tone, Normal affect Lymphatics: No axilla or inguinal lymphadenopathy Laboratory Data at Discharge: WBC 7.20 thou/uL (4.3-10.9) 11/11/22 06:30 Hgb 12.3 g/dL (12.0-15.0) 11/11/22 06:30 Hct 38.5 % (36.0-45.0) 11/11/22 06:30 Plt Count 173 thou/uL (152-406) 11/11/22 06:30 Sodium 133 mEq/L (136-145) L 11/11/22 06:30 Potassium 4.1 mEq/L (3.5-5.1) 11/11/22 06:30 BUN 31 mg/dL (7-18) H 11/11/22 06:30 Creatinine 1.03 mg/dL (0.55-1.02) H 11/11/22 06:30 Glucose 138 mg/dL (74-106) H 11/11/22 06:30 Magnesium 1.9 mg/dL (1.6-2.4) 11/09/22 18:35 Total Bilirubin 0.5 mg/dL (0.2-1.0) 11/11/22 06:30 AST 17 U/L (15-37) 11/11/22 06:30 ALT 18 U/L (13-56) 11/11/22 06:30 Alkaline Phosphatase 71 U/L (45-117) 11/11/22 06:30 Home Medications: carvediloL [Coreg*] 12.5 mg PO BID #60 tab 07/01/18 Metformin HCl 500 mg PO BID 05/26/22 Apixaban [Eliquis] 5 mg PO BID #60 tab 05/27/22 Ayan [Ayan*] 1 pkt PO BID #60 packet 06/06/22 Hydromorphone HCl [Dilaudid] 1 tab PO Q4HR 11/09/22 Collagenase [Santyl Ointment] 30 appl TOP M,W,F 30 Days #200 ea 11/11/22 New Medications: Collagenase [Santyl Ointment] 30 appl TOP M,W,F 30 Days #200 ea Diet: AHA Activity: Ad genevieve Followup: Lc Gibson MD [ACTIVE - CAN ADMIT] - 1-2 Days Physician Review: Patient Assessed, Agree with Above Assessment and Plan Time spent managing pt's care (in minutes): 25
[2022-11-11 12:32] VITALS: BP 131/59; TEMP 97.6
[2022-11-12] MEDS ORDERED: COLLAGENASE 30 GM OINTMENT TOP SCH (09:00)
== END 2022-11-11 14:08 | disposition home health service (06) | DRG 603 ==
LOC: ER 15:43 → ERHOLD 19:25 → 2ND 20:11 → OBSVTOIN 11-11 08:43
PROVIDERS: ADMIT Internal Medicine; ATTEND Internal Medicine
DX: L03.116 Cellulitis of left lower limb (principal); I50.22 Chronic systolic (congestive) heart failure; Z68.43 Body mass index [BMI] 50.0-59.9, adult; L03.115 Cellulitis of right lower limb; I11.0 Hypertensive heart disease with heart failure; E11.621 Type 2 diabetes mellitus with foot ulcer; L97.509 Non-pressure chronic ulcer of other part of unspecified foot with unspecified severity; I48.0 Paroxysmal atrial fibrillation; E66.9 Obesity, unspecified; Z71.3 Dietary counseling and surveillance; Z79.4 Long term (current) use of insulin; Z79.84 Long term (current) use of oral hypoglycemic drugs; Z79.01 Long term (current) use of anticoagulants; Z79.899 Other long term (current) drug therapy; Z88.0 Allergy status to penicillin; Z88.3 Allergy status to other anti-infective agents; Z88.5 Allergy status to narcotic agent; Z85.43 Personal history of malignant neoplasm of ovary; Z90.710 Acquired absence of both cervix and uterus; Z80.1 Family history of malignant neoplasm of trachea, bronchus and lung; Z83.3 Family history of diabetes mellitus; Z82.49 Family history of ischemic heart disease and other diseases of the circulatory system; Z83.6 Family history of other diseases of the respiratory system
CPT/HCPCS: 36415; 71045; 80048; 80053; 82947; 83605; 83735; 83880; 84484; 85025; 87040; 87070; 87077; 87186; 87205; 93005; 93925; 93970; 96374; 96375; 99285; G0378; J0744; J1940; J3010

== ENCOUNTER 2023-04-20 19:42 | Inpatient (IN) | payer OTHER ==
[2023-04-20 21:00] LABS: Absolute Lymphocytes (CBC) 1.9 K/uL (0.7-4.9); Hematocrit 34.9 % (36.0-45.0); Lymphocytes % 14.5 % (15.3-44.8); MCV 91.9 fL (80-100); MPV 8.3 fL (7.6-11.3); Platelets 183 thou/uL (152-406)
--- NOTE | 2023-04-20 21:01 | RAD REPORT ---
EXAM DESCRIPTION: RAD - Foot Left 3 View - 04/20/2023 8:43 pm CLINICAL HISTORY: Left Foot swelling FINDINGS: No fracture or dislocation is seen. Osteoporosis. Hallux valgus deformity Soft tissue ulceration plantar aspect of the right foot. Subtle cortical irregularity involves the inferior posterior aspect of calcaneus equivocal for osteom yelitis. Further evaluation with MRI would be helpful
--- NOTE | 2023-04-20 21:02 | RAD REPORT ---
EXAM DESCRIPTION: Isabella Single View04/20/2023 8:43 pm CLINICAL HISTORY: Shortness of breath COMPARISON: November 2022 FINDINGS: Pulmonary vascular congestion. Lungs appear clear of acute infiltrate. Heart is mildly to moderately enlarged
[2023-04-20 21:27] LABS: Albumin 2.5 g/dL (3.4-5.0); Bilirubin Total 0.6 mg/dL (0.2-1.0); Protein, Total 7.8 g/dL (6.4-8.2)
[2023-04-20 21:34] LABS: Bilirubin Direct 0.1 mg/dL (0-0.2); Bilirubin Indirect, Calculated 0.5 mg/dL (0.2-0.8)
[2023-04-20 21:39] LABS: Magnesium 2.2 mg/dL (1.6-2.4); Potassium 5.1 mEq/L (3.5-5.1)
--- NOTE | 2023-04-20 22:47 | EDPHYS ---
Physician Documentation [facility] Name: Maria Teresa Harrison Age: 78 yrs Sex: Female : 1945 Arrival Date: 04/20/2023 Time: 19:42 Bed 7 Private MD: ED Physician Roger Reardon HPI: 04/20 20:09 This 78 yrs old Female presents to ER via EMS with complaints of Right thigh and left kdr foot pain. 20:09 Patient presents to the ED via EMS after calling them for unbearable pain to her right kdr proximal thigh and left foot. Patient has chronic cellulitis and wounds in these areas which has been addressed by previous providers. Patient states that if she gets A\T\E ointment to her right proximal thigh wound that that assuage is the pain in those areas. There are several wounds on the lateral aspect of the left foot which have been dressed and wrapped. Generally speaking from the mid calf down on both legs the patient is a very M erythematous mostly on the left side though. Patient also appears dyspneic but states that this is her normal breathing. Patient otherwise appears to be stable on initial presentation. Onset: The symptoms/episode began/occurred at an unknown time. Severity of symptoms: At their worst the symptoms were mild moderate just prior to arrival, in the emergency department the symptoms are unchanged. The patient has experienced similar episodes in the past, chronically. The patient has not recently seen a physician. 22:46 Patient care was assumed from Dr. Gatica, patient presents with primary complaint of sp4 left foot draining pressure ulcers with necrotic smell. Also right posterior thigh swelling tenderness and pain. Patient also has bilateral lower extremity edema, bilateral lower extremity redness, and a dyspnea on exertion patient has past medical history of lower extremity cellulitis, type 2 diabetes mellitus with type II diabetic ulcers, atrial fibrillation, hypertension, physical deconditioning, morbid obesity. Patient's medications include carvedilol, metformin, apixaban, Ayan, hydromorphone p.o. every 4 hours as needed, collagenase. . Historical: - Allergies: 19:51 Erythromycin; rv 19:51 Hydrocodone-Acetaminophen; rv 19:51 Levaquin; rv 19:51 PENICILLINS; rv - PMHx: 19:51 Cellulitis; diabetes mellitus; Hypertension; Atrial fibrillation; rv - PSHx: 19:51 hearth cath; ovarian cancer; Total abdominal hysterectomy; wrist SX; rv - Immunization history:: Adult Immunizations up to date. - Social history:: Smoking status: Patient denies any tobacco usage or history of. ROS: 20:09 Constitutional: Negative for fever, chills, and weight loss, Eyes: Negative for injury, kdr pain, redness, and discharge, Neck: Negative for injury, pain, and swelling, 20:09 Respiratory: Positive for dyspnea on exertion, shortness of breath, on exertion. Negative for hemoptysis, orthopnea, pleurisy, sputum production, 20:09 Abdomen/GI: Negative for nausea, vomiting, and diarrhea, 20:09 Skin: Positive for cellulitis, erythema, swelling, of the right leg and left leg, Draining wounds to the left lateral aspect of the left foot, Exam: 20:09 Constitutional: This is a well developed, well nourished patient morbidly obese who is kdr awake, alert, and in mild to moderate distress primarily from the pain on her right proximal inner thigh. Head/Face: Normocephalic, atraumatic. Eyes: Pupils equal round and reactive to light, extra-ocular motions intact. Lids and lashes normal. Conjunctiva and sclera are non-icteric and not injected. Cornea within normal limits. Periorbital areas with no swelling, redness, or edema. Neck: Trachea midline, no thyromegaly or masses palpated, and no cervical lymphadenopathy. Supple, full range of motion without nuchal rigidity, or vertebral point tenderness. No Meningismus. Chest/axilla: Normal chest wall appearance and motion. Nontender with no deformity. No lesions are appreciated. Abdomen/GI: Soft, non-tender, with normal bowel sounds. No distension or tympany. No guarding or rebound. No evidence of tenderness throughout. 20:09 Abdomen/GI: Inspection: obese Bowel sounds: Vital Signs: 19:49 BP 170 / 82; Pulse 92; Resp 24; Temp 98.1; Pulse Ox 94% on R/A; Weight 181.44 kg; rv Height 5 ft. 8 in. ; 20:37 BP 184 / 97; Pulse 101; Resp 24; Pulse Ox 100% on 2 lpm NC; rv 21:07 BP 184 / 97; Pulse 92; Resp 16; Pulse Ox 95% on 2 lpm NC; rv 22:00 BP 167 / 95; Pulse 91; Resp 18; Pulse Ox 100% 2 lpm ; rv 23:00 BP 169 / 94; Pulse 86; Resp 17; Pulse Ox 100% on 2 lpm NC; rv 19:49 Body Mass Index 60.82 (181.44 kg, 172.72 cm) rv MDM: 22:15 Patient medically screened. sp4 22:43 Data reviewed: vital signs, nurses notes, EMS record, old medical records, lab test sp4 result(s), radiologic studies, plain films. Consideration of Admission/Observation Patient was admitted/placed on observation. Escalation of care including admission/observation considered. Management of patient was discussed with the following: Hospitalist: Admission team . Video Photographer: Brannon Hernandez General Surgery . ED course: Patient has some signs of volume overload, renal insufficiency, also atrial fibrillation, left foot reveals draining wounds with necrotic smell wound to the left lateral foot another 1 to the left heel. There is also left posterior thigh lesion appears to be possibly infected hematoma. Overall patient has moderate to severe physical deconditioning signs of prolonged immobility.. 04/20 20:07 Order name: Basic Metabolic Panel; Complete Time: 22:14 kdr 04/20 20:07 Order name: CBC with Diff; Complete Time: 22:14 kdr 04/20 20:07 Order name: LFT's; Complete Time: 22:14 kdr 04/20 20:07 Order name: Magnesium; Complete Time: 22:14 kdr 04/20 20:07 Order name: NT PRO-BNP; Complete Time: 22:14 kdr 04/20 20:07 Order name: Troponin HS; Complete Time: 22:14 kdr 04/20 22:14 Order name: Blood Culture Adult (2) sp4 04/20 22:38 Order name: Lactate w/ 2H reflex if indic. la1 04/20 20:07 Order name: XRAY Chest (1 view); Complete Time: 22:14 kdr 04/20 20:07 Order name: Foot Left 3 View XRAY; Complete Time: 22:14 kdr 04/20 20:07 Order name: EKG; Complete Time: 20:08 kdr 04/20 20:07 Order name: Cardiac monitoring; Complete Time: 20:37 kdr 04/20 20:07 Order name: EKG - Nurse/Tech; Complete Time: 21:08 kdr 04/20 20:07 Order name: IV Saline Lock; Complete Time: 20:37 kdr 04/20 20:07 Order name: Labs collected and sent; Complete Time: 20:37 kdr 04/20 20:07 Order name: O2 Per Protocol; Complete Time: 20:37 kdr 04/20 20:07 Order name: O2 Sat Monitoring; Complete Time: 20:37 kdr 04/20 20:08 Order name: Misc. Order: Apply A\T\D Ointment to proximal posterior thigh area; Complete kdr Time: 20:36 04/20 22:27 Order name: Fry; Complete Time: 23:15 sp4 Administered Medications: 23:14 Drug: Furosemide IVP 40 mg IVP once; give over 2 minutes Route: IVP; Site: left hand; rv 23:14 Drug: ceFAZolin IVPB 2 grams IVPB once over 30 mins; (mix in 100 mL NS) Route: IVPB; rv Infused Over: 30 mins; Site: right hand; 23:39 Drug: vancoMYCIN IVPB 2 grams IVPB at calculated rate once Route: IVPB; Rate: rv calculated rate; Site: right antecubital; Disposition Summary: 04/20/23 22:46 Hospitalization Ordered Notes: Hospitalization Status: Inpatient Admission sp4 Provider: Gil Gonzáles4 Location: Telemetry/[facility] (Inpatient) sp4 Condition: Serious sp4 Problem: new sp4 Symptoms: are unchanged sp4 Bed/Room Type: Standard sp4 Room Assignment: 215(04/21/23 00:29) cg Diagnosis - Acute on chronic diastolic (congestive) heart failure sp4 - Left lower extremity pressure ulcer left heel, left foot infected pressure ulcer, sp4 left lower foot necrotic pressure ulcer, bilateral lower extremity cellulitis, right posterior thigh infected hematoma, severe physical deconditioning, bilateral lymphedema, - Orthopnea, dyspnea on exertion sp4 Forms: - Medication Reconciliation Form sp4 - SBAR form sp4 - Leadership Thank You Letter sp4 Signatures: Dispatcher [employer] August Trevizo MD MD kdr Yashira Melara RN RN cg Octaviano Restrepo RN RN rv Potepalov, Sergey, MD MD sp4 Corrections: (The following items were deleted from the chart) 04/21 00:29 10/13 22:46 sp4 cg
--- NOTE | 2023-04-20 22:47 | ER ---
Nurse's Notes [facility] Name: Maria Teresa Harrison Age: 78 yrs Sex: Female : 1945 Arrival Date: 04/20/2023 Time: 19:42 Bed 7 Private MD: Diagnosis: Acute on chronic diastolic (congestive) heart failure;Left lower extremity pressure ulcer left heel, left foot infected pressure ulcer, left lower foot necrotic pressure ulcer, bilateral lower extremity cellulitis, right posterior thigh infected hematoma, severe physical deconditioning, bilateral lymphedema,;Orthopnea, dyspnea on exertion Presentation: 04/20 19:49 Chief complaint: EMS states: complaining of pain on the left foot. wound on the left rv heel. scheduled to ff up with pcp, unable to ambulate tonight because of pain. Coronavirus screen: At this time, the client does not indicate any symptoms associated with coronavirus-19. Ebola Screen: No symptoms or risks identified at this time. Initial Sepsis Screen: Does the patient meet any 2 criteria? RR > 20 per min. Does the patient have a suspected source of infection? Yes: Skin breakdown/wound. Risk Assessment: Do you want to hurt yourself or someone else? Patient reports no desire to harm self or others. Onset of symptoms was April 20, 2023. 19:49 Method Of Arrival: EMS: [facility] rv 19:49 Acuity: [place] 3 rv Triage Assessment: 19:51 General: Appears uncomfortable, Behavior is calm, cooperative. Pain: Complains of pain rv in left foot. Neuro: Level of Consciousness is awake, alert, obeys commands, Oriented to person, place, time, situation. Cardiovascular: Capillary refill < 3 seconds Patient's skin is warm and dry. Respiratory: Airway is patent Respiratory effort is unlabored, Breath sounds are clear bilaterally. GI: Abdomen is round obese. : No signs and/or symptoms were reported regarding the genitourinary system. Derm: Skin with poor turgor Skin is moist, Wound noted left foot. Historical: - Allergies: 19:51 Erythromycin; rv 19:51 Hydrocodone-Acetaminophen; rv 19:51 Levaquin; rv 19:51 PENICILLINS; rv - PMHx: 19:51 Cellulitis; diabetes mellitus; Hypertension; Atrial fibrillation; rv - PSHx: 19:51 hearth cath; ovarian cancer; Total abdominal hysterectomy; wrist SX; rv - Immunization history:: Adult Immunizations up to date. - Social history:: Smoking status: Patient denies any tobacco usage or history of. Screenin:52 [facility] ED Fall Risk Assessment (Adult) History of falling in the last 3 months, rv including since admission No falls in past 3 months (0 pts) Confusion or Disorientation No (0 pts) Intoxicated or Sedated No (0 pts) Impaired Gait Yes (1 pt) Mobility Assist Device Used Yes (1 pt) Altered Elimination No (0 pt) Score/Fall Risk Level 3 or more points = High Risk Oriented to surroundings, Maintained a safe environment, Educated pt \T\ family on fall prevention, incl call for assistance when getting out of bed, Assessed \T\ reinforced patient's understanding of fall precautions, Provided non-skid footwear, Hourly rounding (assess needs \T\ fall precautionary measures) done, Used ambulatory aids as needed (educated on \T\ assisted with), Used gait belt as appropriate Implemented a Fall Risk Plan of Care, Apply high fall risk patient identification: yellow non skid footwear/ fall signage, Placed fall mat w/ non beveled edge next to bed, Activated bed/chair alarm, Remained w/in arm's length of patient and in sight while toileting, Offered frequent toileting (1:1 observation), Remained with patient while ambulating, Utilized family, sitter, or virtual sociology instructor as indicated. Abuse screen: Denies threats or abuse. Denies injuries from another. Nutritional screening: No deficits noted. Tuberculosis screening: No symptoms or risk factors identified. Assessment: 21:08 Reassessment: Patient and/or family updated on plan of care and expected duration. Pain rv level reassessed. Patient is alert, oriented x 3, equal unlabored respirations, skin warm/dry/pink. Vital Signs: 19:49 BP 170 / 82; Pulse 92; Resp 24; Temp 98.1; Pulse Ox 94% on R/A; Weight 181.44 kg; rv Height 5 ft. 8 in. ; 20:37 BP 184 / 97; Pulse 101; Resp 24; Pulse Ox 100% on 2 lpm NC; rv 21:07 BP 184 / 97; Pulse 92; Resp 16; Pulse Ox 95% on 2 lpm NC; rv 22:00 BP 167 / 95; Pulse 91; Resp 18; Pulse Ox 100% 2 lpm ; rv 23:00 BP 169 / 94; Pulse 86; Resp 17; Pulse Ox 100% on 2 lpm NC; rv 19:49 Body Mass Index 60.82 (181.44 kg, 172.72 cm) rv ED Course: 19:46 Patient arrived in ED. la1 19:49 Octaviano Restrepo, SHREYAS is Primary Nurse. rv 19:50 August Gatica MD is Attending Physician. kdr 19:51 Triage completed. rv 19:51 Arm band placed on right wrist. rv 19:52 Patient has correct armband on for positive identification. Client placed on continuous rv cardiac and pulse oximetry monitoring. NIBP monitoring applied. monitoring manager on. 19:52 No provider procedures requiring assistance completed. Maintain EMS IV. Dressing rv intact. Good blood return noted. Site clean \T\ dry. Gauge \T\ site: 20 left hand. 20:44 XRAY Chest (1 view) In Process Unspecified. EDMS 20:44 Foot Left 3 View XRAY In Process Unspecified. EDMS 22:14 Attending Physician role handed off by August Gatica MD sp4 22:14 Roger Reardon MD is Attending Physician. sp4 22:45 Gil Gonzáles MD is Hospitalizing Provider. sp4 Administered Medications: 23:14 Drug: Furosemide IVP 40 mg IVP once; give over 2 minutes Route: IVP; Site: left hand; rv 23:14 Drug: ceFAZolin IVPB 2 grams IVPB once over 30 mins; (mix in 100 mL NS) Route: IVPB; rv Infused Over: 30 mins; Site: right hand; 23:39 Drug: vancoMYCIN IVPB 2 grams IVPB at calculated rate once Route: IVPB; Rate: rv calculated rate; Site: right antecubital; Medication: 21:07 VIS not applicable for this client. rv Outcome: 22:46 Decision to Hospitalize by Provider. sp4 04/21 01:12 Patient left the ED. iw Signatures: Dispatcher [employer] EDMS August Gatica MD MD kdr Williams, Irene, RN RN iw Casimiro Marr, [employer]Cla1 Octaviano Restrepo RN RN rv Potepalov, Roger, MD MD sp4
[2023-04-20] MEDS ORDERED: CEFAZOLIN SODIUM 1 GM/VIAL ONE (23:18)
[2023-04-20] MEDS ORDERED: NA CHLORIDE 0.9% 100 ML ONE (23:19)
[2023-04-20] MEDS ORDERED: VANCOMYCIN 1 GM/VIAL ONE (23:19)
[2023-04-20] MEDS ORDERED: NA CHLORIDE 0.9% 500 ML ONE (23:19)
[2023-04-20] MEDS ORDERED: FUROSEMIDE 40 MG/4 ML VIAL ONE (23:19)
--- NOTE | 2023-04-21 01:22 | P.HP ---
Certification for Inpatient Patient admitted to: Inpatient With expected LOS: >2 Midnights Patient will require the following post-hospital care: None Practitioner: I am a practitioner with admitting privileges, knowledge of patient current condition, hospital course, and medical plan of care. Services: Services provided to patient in accordance with Admission requirements found in Title 42 Section 412.3 of the Code of Federal Regulations Patient History Date of Service: 04/21/23 Reason for admission: Osteomyelitis, sepsis History of Present Illness: 78-year-old female with history of hypertension, diabetes mellitus type [id number], chronic pain, atrial fibrillation noncompliant with anticoagulation secondary to bleeding, chronic wounds of lower extremities/lymphedema presents to the emergency department chief complaint of left lower extremity pain, worsening of wound to the left foot. She was evaluated in the emergency department her labs were significant for white blood cell count 12.9 hemoglobin 11.6 hematocrit 34.9 sodium 133 creatinine 1.12 BUN 31 GFR 50 glucose 156 lactic acid 0.9 BNP 3390 chest x-ray showed pulmonary vascular congestion, moderate cardiomegaly. X-ray of the left foot showed subtle cortical irregularity involves the inferior posterior aspect of calcaneus equivocal for osteomyelitis. Patient was started on broad-spectrum antibiotics, ED provider wishes to admit for possible osteomyelitis, cellulitis left lower extremity, possible CHF. Allergies codeine Allergy (Verified 11/09/22 22:35) Itching erythromycin base Allergy (Verified 11/09/22 22:35) Itching levofloxacin [From Levaquin] Allergy (Verified 11/09/22 22:35) Itching Penicillins Adverse Reaction (Verified 11/09/22 22:35) Hives Home Medications: carvediloL [Coreg*] 12.5 mg PO BID #60 tab 07/01/18 Metformin HCl 500 mg PO BID 05/26/22 Apixaban [Eliquis] 5 mg PO BID #60 tab 05/27/22 Ayan [Ayan*] 1 pkt PO BID #60 packet 06/06/22 Hydromorphone HCl [Dilaudid] 1 tab PO Q4HR 11/09/22 Collagenase [Santyl Ointment] 30 appl TOP M,W,F 30 Days #200 ea 11/11/22 - Past Medical/Surgical History Diabetic: Yes -: Ovarian Cancer -: Diabetes mellitus type [id number] -: Hypertension -: Atrial Fibrillation -: cellulitis -: Hysterectomy -: Wrist surgery Psychosocial/ Personal History: Patient lives at home with her - Family History Mother -: Lung disease, Cancer Notes: lung cancer Father -: Heart disease, Lung disease, Diabetes Notes: COPD, CHF, DM - Social History Alcohol use: No CD- Drugs: Yes Caffeine use: No Place of Residence: Home Review of Systems 10-point ROS is otherwise unremarkable Musculoskeletal: Leg Pain Physical Examination - Physical Exam General: Alert, In no apparent distress, Oriented x3 HEENT: Atraumatic, PERRLA, Mucous membr. moist/pink, EOMI, Sclerae nonicteric Neck: Supple, 2+ carotid pulse no bruit, No LAD, Without JVD or thyroid abnormality Respiratory: Clear to auscultation bilaterally, Normal air movement Cardiovascular: Regular rate/rhythm, Normal S1 S2 Capillary refill: <2 Seconds Gastrointestinal: Normal bowel sounds, No tenderness Musculoskeletal: No tenderness Integumentary: No rashes, Diabetic ulcer (Left foot), Other (Cellulitis left lower extremity extending up the area of calf, lymphedema bilaterally) Neurological: Normal speech, Normal strength at 5/5 x4 extr, Normal tone, Normal affect - Studies Laboratory Data (last 24 hrs) 04/20/23 04/20/23 20:45 20:45 WBC 12.90 H Hgb 11.6 L Hct 34.9 L Plt Count 183 Sodium 133 L Potassium 5.1 BUN 31 H Creatinine 1.12 H Glucose 156 H Magnesium 2.2 Total Bilirubin 0.6 AST 45 H ALT 38 Alkaline Phosphatase 89 Assessment and Plan - Plan Assessment: Sepsis secondary to diabetic ulceration left foot with concern for osteomyelitis/Cellulitis left lower extremity Atrial fibrillation noncompliant with anticoagulation Diabetes mellitus type [id number] Elevated BNP, edema of lower extremities concern for possible CHFunknown EF Lymphedema Plan: Sepsis secondary to diabetic ulceration left foot with concern for osteo myelitis/Cellulitis left lower extremity N.p.o., broad-spectrum antibiotics, blood cultures obtained in ED, meets criteria for sepsis given leukocytosis, tachycardia lactic acid less than 2 no other endorgan damage. Surgical consultation for possible debridement. MRI ordered for further valuation of possible osteomyelitis. Atrial fibrillation noncompliant with anticoagulation Patient states significant bleeding episodes when taking Eliquis, will continue DVT prophylaxis dose for now. Diabetes mellitus type [id number] ACHS Accu-Chek, signs constant. Elevated BNP, edema of lower extremities concern for possible CHFunknown EF Continue IV diuresis, cardiology consult. Will obtain echo when possible. Lymphedema DVT PPX: Lovenox Code status: Full Discharge Plan: Home Plan to discharge in: Greater than 2 days - Advance Directives Does patient have a Living Will: No Does patient have a Durable POA for Healthcare: No - Code Status/Comfort Care Code Status Assessed: Yes (Full code) Critical Care: No Time Spent Managing Pts Care (In Minutes): 70
[2023-04-21] MEDS ORDERED: ACETAMINOPHEN 500 MG TAB PO PRN (01:49)
[2023-04-21] MEDS ORDERED: ONDANSETRON 4 MG/2 ML VIAL IV PRN (01:49)
[2023-04-21] MEDS: MORPHINE 2 MG/ML SYR IV PRN ×2 (02:21→15:03)
[2023-04-21 03:36] LABS: Hematocrit 35.8 % (36.0-45.0); Lymphocytes % 18.9 % (15.3-44.8); MCV 92.3 fL (80-100); MPV 8.4 fL (7.6-11.3); Platelets 189 thou/uL (152-406); RBC Red Blood Cell Count 3.88 M/uL (3.86-4.86)
[2023-04-21 04:03] LABS: Potassium 4.9 mEq/L (3.5-5.1)
[2023-04-21] MEDS: INSULIN REGULAR (HUMAN) 100 UNIT/ML SQ SCH ×4 (07:30→21:00)
[2023-04-21] MEDS ORDERED: FUROSEMIDE 40 MG/4 ML VIAL IV SCH (09:00)
[2023-04-21] MEDS ORDERED: ENOXAPARIN 40 MG/0.4 ML SQ SCH (09:00)
[2023-04-21] MEDS ORDERED: VANCOMYCIN 1 GM in NA CHLORIDE 0.9% 250 ML IVPB SCH (09:00)
[2023-04-21] MEDS ORDERED: CEFEPIME 1 GM in NA CHLORIDE 0.9% 100 ML IV SCH (09:00)
[2023-04-21] MEDS: ENOXAPARIN 40 MG/0.4 ML SQ SCH (12:12)
[2023-04-21] MEDS: CEFEPIME 1 GM in NA CHLORIDE 0.9% 100 ML IV SCH (12:13)
--- NOTE | 2023-04-21 13:23 | CON ---
Date of Consultation: 04/21/2023 Reason For Consultation: Infected wound, left foot. History Of Present Illness: Patient is a 78-year-old female with multiple medical problems who prese nted to the emergency room with pain in the left lower extremity and foot. She was evaluated and was admitted to rule out osteomyelitis as plain x-ray suspected as such. She did have evidence of infec jaime wound and she was admitted for IV antibiotics as well. I was consulted. She is awake and alert, somewhat somnolent this morning in describing pain. No sore throat, runny nose, cough, headaches, o r dizziness. No chest pain. No fever or chills. No purulent discharge. Review of Systems: Otherwise, unremarkable. Past Medical History: Significant for ovarian cancer, diabetes type 2, AFib, hypertension, morbid ob esity, previous history of cellulitis in lower extremity, as well as, lymphedema. Past Surgical History: Hysterectomy and wrist surgery. Allergies: INCLUDES CODEINE, ERYTHROMYCIN, LEVAQUIN, AND PENICILLIN. Social History: She does not smoke or drink alcohol. Family History: Significant for mother with lung cancer. Father with the heart disease, lung diseas e, and diabetes. Physical Examination: Vital Signs: Currently, stable. She is afebrile. General: She is awake and alert now. Head and Neck: No masses. Chest: Clear. Heart: S1, S2. Abdomen: Soft. Extremities: Bilateral lymphedema with diminished dorsalis pedis and posterior tibial pulses. Both lower legs are somewhat red, but the one on the left has slight warmth to it. On the left lateral fo ot, there is approximately a 3 cm area of an open wound with necrotic eschar and necrotic tissue exte nding slightly towards the plantar aspect via a thin line. There is no fluctuance. There is indurat ion, redness, and warmth, however, and tenderness. There is a healed wound that appears to be chroni c in nature, which is approximately 2 cm in diameter with callus around the edges, but no surrounding erythema, warmth, or edema. Assessment: A 78-year-old female with multiple medical problems with an infected wound with cellulit is, possible osteomyelitis. Laboratory Data: It was significant for white count of 12.9 yesterday, but today it is 10.8. There is no left shift today. Chemistry reviewed, slightly elevated BUN and creatinine. Hemoglobin A1c is 7.4. Lactic acid was 0.9. X-ray of the left foot was reviewed and it shows subtle cortical irregul arity involving the inferior posterior aspect of the calcaneus equivocal for osteo. Further evaluati on with MRI would be helpful. Recommendation: IV antibiotics as ordered. Patient may need cardiac clearance. Dr. Gonzáles will e valuate and decide. Continue IV antibiotics as ordered and wound care will be Santyl and then after the MRI is done, then we will proceed with debridement of the wound probably Sunday. We will follow this patient while in the hospital. /MODL Voice ID: [id number] Report ID: [id number]
--- NOTE | 2023-04-21 15:50 | CON ---
Date of Consultation: 04/21/2023 Reason For Consultation: CHF. History Of Present Illness: 78-year-old female, history of hypertension, diabetes, atrial fibrillati on, diastolic heart failure, presented with lower extremity pain, shortness of breath, orthopnea. No chest pain. Past Medical History: As outlined above in the HPI. Medications: Refer to reconciliation sheet for detailed list. Allergies: CODEINE, ERYTHROMYCIN, LEVAQUIN, AND PENICILLIN. Family History: No premature coronary artery disease or cancer. Social History: She does not smoke or drink. Does not use any drugs. Review of Systems: All systems reviewed and they were negative except what mentioned in HPI. Physical Examination: Vital Signs: Reviewed. Head and Neck: Pupils are equal, reactive to light. Intact eye movements. No cervical lymphadenopa thy. Neck is supple. Thyroid is not enlarged. Lungs: Decreased breathing sounds bilaterally. No accessory muscle use or muscle retraction. Heart: Irregularly irregular. No extra sounds. Abdomen: Soft, nontender. Bowel sounds positive. No organomegaly. No masses or hernia. No rigidi ty or rebound. Extremities: 4+ edema bilaterally. No clubbing or cyanosis. Intact pulses. Skin: No rash. Neurologic: Alert, awake, oriented x3. No acute focal deficits appreciated. Lymph Nodes: No cervical or axillary lymphadenopathy. Investigations: BUN 29, creatinine 1.08. NT-proBNP 3390. Troponin is negative and hemoglobin is 11 .8, white blood cell count is 10.8. Assessment And Recommendations: 1.Acute congestive heart failure exacerbation. No recent echo to show ejection fraction, definitely patient has massive edema. Recommend aggressive diuresis with Lasix 40 mg IV q.12 hours. If blood pressure allows, and monitor BUN, creatinine, electrolytes, and urine output and strict low-salt diet . Obtain an echo on Sunday. 2.Hypertension. Blood pressure is on the high side. Continue current management and monitor after aggressive diuresis. Blood pressure likely will drop and adjust medications at that time. I will fo llow the patient. SR/MODL Voice ID: [id number] Report ID: [id number]
[2023-04-21] MEDS ORDERED: HYDROMORPHONE HCL 2 MG/ML inj IV PRN (16:42)
[2023-04-21] MEDS: SPIRONOLACTONE 25 MG TABLET PO SCH ×2 (17:20→21:49)
[2023-04-21] MEDS ORDERED: APIXABAN 5 MG TABLET PO SCH (21:00)
[2023-04-21] MEDS: PYRIDOXINE HCL PO SCH (21:00)
[2023-04-21] MEDS: JUVEN PACKET PO SCH (21:00)
[2023-04-21] MEDS: ASCORBIC ACID 500 MG TABLET PO SCH (21:49)
[2023-04-21] MEDS: METFORMIN HCL 500 MG TAB PO SCH (21:49)
[2023-04-21] MEDS: carvediloL 12.5 MG TAB PO SCH (21:49)
[2023-04-21] MEDS: VANCOMYCIN 2 GM in NA CHLORIDE 0.9% 500 ML IVPB SCH (21:51)
[2023-04-22] MEDS ORDERED: HYDROMORPHONE HCL 1 MG/ML INJ IV PRN (00:22)
[2023-04-22] MEDS: ACETAMINOPHEN 500 MG TAB PO PRN ×3 (00:35→21:11)
[2023-04-22 00:48] LABS: Arterial Blood Carboxyhemoglob 1.6 % (0-1.5); Blood Gas Oxyhemoglobin 89.2 % (94-97); Blood O2 Saturation 91.8 % (92-98.5)
[2023-04-22] MEDS: HYDROMORPHONE HCL 0.5 MG/0.5 ML INJ IV PRN ×2 (01:42→05:29)
[2023-04-22 04:33] LABS: Absolute Lymphocytes (CBC) 1.7 K/uL (0.7-4.9); Hematocrit 34.6 % (36.0-45.0); Lymphocytes % 14.3 % (15.3-44.8); MCV 93.6 fL (80-100); MPV 8.2 fL (7.6-11.3); Platelets 184 thou/uL (152-406)
[2023-04-22 04:57] LABS: Potassium 5.6 mEq/L (3.5-5.1)
[2023-04-22 06:04] LABS: Arterial Blood Carboxyhemoglob 1.7 % (0-1.5); Blood Gas Oxyhemoglobin 94.2 % (94-97); Blood O2 Saturation 96.9 % (92-98.5)
[2023-04-22] MEDS: INSULIN REGULAR (HUMAN) 100 UNIT/ML SQ SCH ×4 (07:30→21:00)
[2023-04-22] MEDS: CEFEPIME 1 GM in NA CHLORIDE 0.9% 100 ML IV SCH ×2 (08:22→08:29)
[2023-04-22] MEDS: METFORMIN HCL 500 MG TAB PO SCH ×2 (08:23→21:07)
[2023-04-22] MEDS: LOSARTAN POTASSIUM 50 MG TABLET PO SCH (08:23)
[2023-04-22] MEDS: SPIRONOLACTONE 25 MG TABLET PO SCH ×3 (08:23→21:09)
[2023-04-22] MEDS: FUROSEMIDE 40 MG TABLET PO SCH (08:23)
[2023-04-22] MEDS: carvediloL 12.5 MG TAB PO SCH ×2 (08:25→21:07)
[2023-04-22] MEDS: ENOXAPARIN 40 MG/0.4 ML SQ SCH ×2 (08:28→09:00)
[2023-04-22] MEDS: JUVEN PACKET PO SCH ×2 (08:28→21:00)
--- NOTE | 2023-04-22 09:18 | RAD REPORT ---
EXAM DESCRIPTION: RAD - Shoulder Left 2 View - 04/22/2023 6:47 am CLINICAL HISTORY: shoulder pain COMPARISON: Chest Single View dated 04/20/2023 FINDINGS: Moderate AC and glenohumeral joint arthritic changes are present. There is [id number] narrowing of the subacromial outlet noted. No acute fracture, dislocation or AVN pattern observed.
[2023-04-22] MEDS: ARFORMOTEROL TARTRATE 15 MCG/2 ML VIAL.NEB NEB SCH ×2 (10:01→20:10)
--- NOTE | 2023-04-22 10:01 | P.PN ---
Subjective Date of Service: 04/22/23 Chief Complaint: Osteomyelitis, sepsis, generalized pain Patient is complaining of generalized pain requesting Dilaudid and Tylenol Review of Systems General: Weakness Cardiovascular: Other (Generalized discomfort left foot pain) Physical Examination - Vital Signs Temperature: 97.6 F Blood Pressure: 141/65 Pulse: 82 Respirations: 21 Pulse Ox (%): 91 - Physical Exam General: Alert, In no apparent distress, Mild distress Respiratory: Clear to auscultation bilaterally Cardiovascular: Edema Gastrointestinal: Normal bowel sounds, Non-distended Integumentary: Other (Patient has a wound over the left foot) Assessment And Plan - Current Problems (Diagnosis) (1) Type 2 diabetes mellitus with foot ulcer Current Visit: No Status: Acute Plan: Patient is 78 years of age admitted with wound on her left foot possible underlying osteomyelitis on IV antibiotics MRI scheduled complaining of generalized pain patient has Dilaudid at home will use that as needed in addition to Tylenol renal function is stable potassium is mildly elevated Qualifiers: Diabetes mellitus long-term insulin use: without long-term use Qualified Code(s): E11.621 - Type 2 diabetes mellitus with foot ulcer; L97.509 - Non- pressure chronic ulcer of other part of unspecified foot with unspecified severity (2) Chronic respiratory failure with hypoxia and hypercapnia Current Visit: Yes Status: Acute Plan: I suspect patient has chronic hypoventilation from obesity has hypoxemia hypercapnia not have any CPAP or BiPAP at home will require full of a full evaluation for with a sleep study no history of COPD will add bronchodilators chest x-ray shows cardiomegaly possible volume overload we will add Diamox Lasix and spironolactone patient has mild chronic renal insufficiency
[2023-04-22] MEDS: HYDROMORPHONE ORAL 4 MG TAB PO PRN ×3 (10:23→22:56)
--- NOTE | 2023-04-22 12:55 | PN ---
Date of Progress Note: 04/22/2023 Subjective: Patient is awake, alert. No new complaints. Objective: Vital Signs: Stable. Afebrile. Laboratory Data: Shows white count of 11.8. There is no significant change in the wound on the left foot. There is still erythema and necrotic tissue in the center of it. There is no purulent discha rge. Assessment: Infected wound with cellulitis. Recommendations: Continue IV antibiotics and wound care is ordered. Echo and MRI are scheduled for tomorrow morning. At that time, when she is cleared, we will take the patient to surgery for debride ment of that infected wound. The patient understands risks, benefits, alternatives, and agrees to pr ocedure. Patient will be n.p.o. after midnight tonight. /MODL Voice ID: [id number] Report ID: [id number]
[2023-04-22] MEDS: ACETAZOLAMIDE 500 MG IV IV SCH ×2 (13:41→21:07)
[2023-04-22] MEDS: COLLAGENASE 30 GM OINTMENT TOP SCH (13:42)
[2023-04-22] MEDS: PYRIDOXINE HCL PO SCH (21:00)
[2023-04-22] MEDS: ASCORBIC ACID 500 MG TABLET PO SCH (21:08)
[2023-04-22] MEDS: VANCOMYCIN 2 GM in NA CHLORIDE 0.9% 500 ML IVPB SCH (21:14)
[2023-04-22] MEDS ORDERED: WATER FOR INJ,STERILE 10 ML ONE (21:24)
[2023-04-23] MEDS: HYDROMORPHONE ORAL 4 MG TAB PO PRN (04:45)
--- NOTE | 2023-04-23 05:13 | P.PN ---
Date of Service: 04/23/23 Subjective: Patient is very lethargic. Patient is not really wearing her BiPAP that well. She is argumentative; Physical Exam: Vitals: reviewed GEN: Alert, oriented, NAD CV: Regular rate & rhythm, no edema Pulm: Diminished with end expiratory wheezing; basilar crackles ABD: Soft, nontender, nondistended BS + Integumentary: Diabetic ulcer (Left foot), LLE Cellulitis extending up the area of calf, b/l lymphedema Neuro: No focal deficits Problem List: -Sepsis secondary to diabetic ulceration left foot with concern for osteomyelitis/Cellulitis LLE -Atrial fibrillation noncompliant with anticoagulation -NIDDM2 -Chronic respiratory failure with hypoxia and hypercapnia -Elevated BNP, edema of lower extremities concern for possible CHFunknown EF -Lymphedema PLAN -General surgery consulted; continue cefepime/vanc; cultures are pending -MRI ordered for further evaluation of possible osteomyelitis. -tentative plan for I&D in AM -PRN pain medication -Cardiology consulted; echocardiogram pending, continue lasix, spironolactone; continue with Eliquis -ACHS Accu-Chek, SSI -confirm home medications, restart as appropriate -continue diamox, STEPHANIE nebs -needs BIPAP support as an outpt
[2023-04-23] MEDS: INSULIN REGULAR (HUMAN) 100 UNIT/ML SQ SCH ×4 (07:30→21:00)
[2023-04-23] MEDS: ARFORMOTEROL TARTRATE 15 MCG/2 ML VIAL.NEB NEB SCH ×2 (08:00→20:30)
[2023-04-23] MEDS ORDERED: LIDOCAINE 2% MPF 5 ML VIAL ONE (08:25)
[2023-04-23] MEDS ORDERED: ONDANSETRON 4 MG/2 ML VIAL ONE (08:25)
[2023-04-23] MEDS ORDERED: FENTANYL CITR 100 MCG/2 ML ONE (08:25)
[2023-04-23] MEDS ORDERED: propofoL 200 MG/20 ML VIAL IV ONE (08:25)
[2023-04-23] MEDS: JUVEN PACKET PO SCH ×2 (09:00→21:00)
--- NOTE | 2023-04-23 09:20 | P.CNS ---
Date of Consult: 04/23/23 Reason for Consult: suspected osteomyelitis left foot Chief Complaint: Osteomyelitis, sepsis, generalized pain History of Present Illness: Patient is a 78 yo female with past medical history of diabetes mellitus type II, hypertension, atrial fibrillation who presented to the ED with complaints of left lower extremity pain and worsening diabetic foot wound. She was admitted for cellulitis of left lower extremity, concern for ostemyelitis. Infectious disease was consulted. Allergies codeine Allergy (Verified 04/21/23 01:59) Itching erythromycin base Allergy (Verified 04/21/23 01:59) Itching levofloxacin [From Levaquin] Allergy (Verified 04/21/23 01:59) Itching Penicillins Adverse Reaction (Verified 04/21/23 01:59) Anaphylaxis Home medications list reviewed: Yes Home Medications: carvediloL [Coreg*] 12.5 mg PO BID #60 tab 07/01/18 Metformin HCl 500 mg PO BID 05/26/22 Apixaban [Eliquis] 5 mg PO BID #60 tab 05/27/22 Ascorbate Calcium [Vitamin C] 500 mg PO BEDTIME 04/21/23 Bifidobacterium Infantis [Align] 2 cap PO DAILY 04/21/23 Cholecalciferol (Vitamin D3) [Vitamin D3] 2,000 unit PO BEDTIME 04/21/23 Ayan [Ayan*] 2 pkt PO BID 04/21/23 Losartan Potassium [Cozaar] 50 mg PO DAILY 04/21/23 Magnesium Glycinate 400 mg PO BEDTIME 04/21/23 Pyridoxine HCl [Vitamin B-6] 500 mg PO BEDTIME 04/21/23 Theanine [l-Theanine] 400 cap PO BEDTIME 04/21/23 - Past Medical/Surgical History Diabetic: Yes -: Ovarian Cancer -: Diabetes mellitus type [id number] -: Hypertension -: Atrial Fibrillation -: cellulitis -: Hysterectomy -: Wrist surgery Psychosocial/ Personal History: Patient lives at home with her - Family History Mother Medical History: Lung disease, Cancer Notes: lung cancer Father Medical History: Heart disease, Lung disease, Diabetes Notes: COPD, CHF, DM - Social History Alcohol use: No CD- Drugs: Yes Caffeine use: No Place of Residence: Home Review of Systems is unable to be obtained (altered mental status) Physical Examination Temp Pulse Resp BP Pulse Ox 97.5 F 89 17 136/66 89 L 04/23/23 08:00 04/23/23 08:00 04/23/23 08:00 04/23/23 08:00 04/23/23 08:00 General: In no apparent distress, Obese, Other (Oriented x0.) HEENT: Atraumatic, Normocephalic Neck: Supple Respiratory: Normal air movement (on 3L nasal cannula), Diminished Cardiovascular: Edema (bilateral lower extemities 1+), Irregular heart rate/rhythm Gastrointestinal: Normal bowel sounds, Soft and benign Integumentary: Erythema (LLE), Warmth (LLE), Diabetic ulcer (left plantar foot) Urinary: Fry catheter Laboratory Data - Reviewed Microbiology Data - Reviewed Imagings Data: - Reviewed Conclusions/Impression: Problem List Cellulitis of Left Lower Extremity Diabetic Foot Ulcer Diabetes Mellitus type II Atrial Fibrillation Hypertension Ovarian Cancer Morbid Obesity Sepsis secondary to Cellulitis of Left Lower Extremity Concern for Osteomyelitis Left Foot Diabetic Foot Ulcer of Left Foot - XR Left Foot 04/20: " No fracture or dislocation is seen. Osteoporosis. Hallux valgus deformity. Soft tissue ulceration plantar aspect of the right foot. Subtle cortical irregularity involves the inferior posterior aspect of calcaneus equivocal for osteomyelitis. Further evaluation with MRI would be helpful." - Blood cultures 04/10: No growth to date - leukocytosis improving. Afebrile. - Left Foot Wound Culture 04/21: Pending - On Cefepime and Vancomycin (started 04/21) - MRI unable to obtain due to weight/size limit - general surgery consulted Recommendations - Continue Cefepime and Vancomycin for now - Will follow up with wound culture results and adjust antibiotics as appropriate - Follow up with MRI or Bone Scan left foot. If osteomyelitis, recommend 6 weeks of antibiotic therapy. - Pending debridement following cardiac clearance - Monitor WBC and fever trends - Continue wound care per Dr. South Case discussed with Pierre Lee
[2023-04-23] MEDS: CEFEPIME 1 GM in NA CHLORIDE 0.9% 100 ML IV SCH (09:33)
[2023-04-23] MEDS: METFORMIN HCL 500 MG TAB PO SCH (09:35)
[2023-04-23] MEDS: FUROSEMIDE 40 MG TABLET PO SCH (09:35)
[2023-04-23] MEDS: LOSARTAN POTASSIUM 50 MG TABLET PO SCH (09:35)
[2023-04-23] MEDS: SPIRONOLACTONE 25 MG TABLET PO SCH (09:37)
[2023-04-23] MEDS: carvediloL 12.5 MG TAB PO SCH ×2 (09:37→21:00)
[2023-04-23] MEDS: ENOXAPARIN 40 MG/0.4 ML SQ SCH (10:06)
[2023-04-23 10:32] LABS: Absolute Lymphocytes (CBC) 1.6 K/uL (0.7-4.9); Hematocrit 35.7 % (36.0-45.0); Lymphocytes % 16.3 % (15.3-44.8); MCV 93.5 fL (80-100); MPV 8.1 fL (7.6-11.3); Platelets 171 thou/uL (152-406); RBC Red Blood Cell Count 3.81 M/uL (3.86-4.86)
[2023-04-23 11:14] LABS: Potassium 5.4 mEq/L (3.5-5.1)
[2023-04-23] MEDS: COLLAGENASE 30 GM OINTMENT TOP SCH (11:23)
[2023-04-23] MEDS: ACETAMINOPHEN 500 MG TAB PO PRN ×2 (11:32→20:41)
--- NOTE | 2023-04-23 13:13 | PN ---
Date of Progress Note: 04/23/2023 Subjective: Patient is awake, alert. No new complaints. Objective: Vital Signs: Stable. Afebrile. Laboratory Data: White count was 11.8 yesterday. Today it is pending with the left shift which has improved. The patient is pending her echo results as well as an MRI which has not been done yet. Assessment: Left foot infected wound with cellulitis, rule out osteo. Await cardiac clearance and M RI results prior to debridement of the wound, which will be done either later today or tomorrow britt schaeffer. Patient understands risks, benefits, alternatives, and agrees to procedure. /MODL Voice ID: [id number] Report ID: [id number]
[2023-04-23] MEDS: HYDROMORPHONE HCL 0.5 MG/0.5 ML INJ IV PRN (14:43)
[2023-04-23] MEDS: ACETAZOLAMIDE 500 MG IV IV SCH (14:44)
--- NOTE | 2023-04-23 15:16 | RAD REPORT ---
EXAM DESCRIPTION: RAD - Shoulder Left 2 View - 04/23/2023 3:11 pm CLINICAL HISTORY: dislocation Pain and swelling COMPARISON: Shoulder Left 2 View dated 04/22/2023 FINDINGS: [id number] AC joint and glenoid humeral joint arthritic changes are present. Diffuse osteopenia. No acute fracture or dislocation seen.
--- NOTE | 2023-04-23 17:09 | EKG ---
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
[2023-04-23] MEDS ORDERED: ALBUMIN HUMAN 25% 100 ML IV ONE (19:00)
[2023-04-23] MEDS ORDERED: FUROSEMIDE 20 MG/ 2ML VIAL IV ONE (19:00)
--- NOTE | 2023-04-23 20:42 | PN ---
Date of Progress Note: 04/23/2023 Subjective: Seen by bedside. She is doing better. Breathing is much easier, not requiring BiPAP an ymore and her lower extremity edema is better. Review of Systems: No chest pain. Shortness of breath is still present. No nausea, vomiting, or diarrhea. No abdomina l pain. No dysuria, polyuria, or urinary urgency. All other systems were reviewed, they were negati ve. Objective: Vital Signs: Reviewed. Head and Neck: Pupils are equal, reactive to light. Intact eye movements. No cervical lymphadenopa thy. Neck is supple. Thyroid is not enlarged. Lungs: Decreased breathing sounds bilaterally. No accessory muscle use or muscle retraction. Heart: Irregularly irregular. No extra sounds. Abdomen: Soft, nontender. Bowel sounds positive. No organomegaly. No masses or hernia. No rigidi ty or rebound. Extremities: Positive edema bilaterally. No clubbing or cyanosis. Intact pulses. Skin: No rash. Neurologic: Alert, awake, oriented x3. No acute focal deficits appreciated. Lymph Nodes: No cervical or axillary lymphadenopathy. Investigations: BUN 39, creatinine 1.02, hemoglobin 11.5. Assessment And Recommendations: 1.Acute on chronic diastolic heart failure. She seems to be doing better clinically. Await on the echo and she was just switched to oral Lasix but I believe she will need Lasix twice a day to keep he r fluid status balanced. 2.Hypertension. Blood pressure is controlled. Continue current management. SR/MODL Voice ID: [id number] Report ID: [id number]
[2023-04-23] MEDS: ASCORBIC ACID 500 MG TABLET PO SCH (21:00)
[2023-04-23] MEDS: PYRIDOXINE HCL PO SCH (21:00)
[2023-04-24] MEDS: ACETAZOLAMIDE 500 MG IV IV SCH ×3 (01:20→20:19)
[2023-04-24] MEDS: NA CHLORIDE 0.9% 1,000 ML IV SCH ×3 (01:22→23:13)
[2023-04-24] MEDS: VANCOMYCIN 2 GM in NA CHLORIDE 0.9% 500 ML IVPB SCH (01:23)
[2023-04-24] MEDS: HYDROMORPHONE HCL 0.5 MG/0.5 ML INJ IV PRN ×4 (01:28→23:13)
[2023-04-24 03:57] LABS: Absolute Lymphocytes (CBC) 1.3 K/uL (0.7-4.9); Hematocrit 34.5 % (36.0-45.0); Lymphocytes % 16.4 % (15.3-44.8); MCV 93.1 fL (80-100); MPV 8.5 fL (7.6-11.3); Platelets 184 thou/uL (152-406)
[2023-04-24 04:09] LABS: Potassium 5.1 mEq/L (3.5-5.1)
[2023-04-24] MEDS ORDERED: LIDOCAINE 2% MPF 5 ML VIAL ONE (07:14)
[2023-04-24] MEDS ORDERED: propofoL 200 MG/20 ML VIAL IV ONE (07:14)
[2023-04-24] MEDS ORDERED: BUPIVACAINE 0.5% PF 10 ML VIAL ONE (07:27)
[2023-04-24] MEDS: INSULIN REGULAR (HUMAN) 100 UNIT/ML SQ SCH ×4 (07:30→19:58)
--- NOTE | 2023-04-24 07:35 | ECHO ---
HEIGHT: 5 ft 8 in WEIGHT: 406 lb 0 oz DATE OF STUDY: 04/23/[address]: Casimiro Marr NP 2-DIMENSIONAL: YES M.MODE: YES DOPPLER: YES COLOR FLOW: YES TDS: YES PORTABLE: YES DEFINITY: BUBBLE STUDY: DIAGNOSIS: CONGESTIVE HEART FAILURE CARDIAC HISTORY: CATHERIZATION: SURGERY: PROSTHETIC VALVE: PACEMAKER: MEASUREMENTS (cm) DIASTOLIC (NORMALS) SYSTOLIC (NORMALS) IVSd 1.2 (0.6-1.2) LA Diam 4.1 (1.9-4.0) LVEF 68% LVIDd 4.1 (3.5-5.7) LVIDs 2.6 (2.0-3.5) %FS 37% LVPWd 1.3 (0.6-1.2) Ao Diam 3.2 (2.0-3.7) 2 DIMENSIONAL ASSESSMENT: RIGHT ATRIUM: NORMAL LEFT ATRIUM: ENLARGED RIGHT VENTRICLE: NORMAL LEFT VENTRICLE: LEFT VENTRICULAR HYPERTROPHY TRICUSPID VALVE: MILD TRICUSPID REGURGITATION MITRAL VALVE: SEVERE MITRAL ANNULAR CALCIFICATION PULMONIC VALVE: NORMAL AORTIC VALVE: NORMAL PERICARDIAL EFFUSION: NONE AORTIC ROOT: NORMAL LEFT VENTRICULAR WALL MOTION: NORMAL DOPPLER/COLOR FLOW: SEE BELOW COMMENTS: 1. NORMAL LEFT VENTRICULAR EJECTION FRACTION GREATER THAN 60% 2. DIASTOLIC DYSFUNCTION 3. MILD CONCENTRIC LEFT VENTRICULAR HYPERTROPHY 4. SEVERE PULMONARY HYPERTENSION WITH RIGHT VENTRICULAR SYSTOLIC PRESSURE GREATER THAN 80 mmHg 5. LEFT ATRIAL ENLARGEMENT 6. SEVERE MITRAL ANNULAR CALCIFICATION WITH MILD MITRAL REGURGITATION TECHNOLOGIST: LAURO FLYNN/ KAVON SHEEHAN
[2023-04-24] MEDS: ARFORMOTEROL TARTRATE 15 MCG/2 ML VIAL.NEB NEB SCH ×2 (08:00→20:35)
[2023-04-24] MEDS ORDERED: COLLAGENASE 30 GM OINTMENT TOP ONE (08:07)
--- NOTE | 2023-04-24 08:14 | P.PN ---
Date of Service: 04/24/23 Chief Complaint: Osteomyelitis, sepsis, generalized pain Subjective: s/p debridement today by Dr. South. No acute events reported overnight. ROS unable to obtain due to altered mental status. Physical Examination Temp Pulse Resp BP Pulse Ox 97.5 F 87 17 170/86 H 97 04/24/23 04:00 04/24/23 04:39 04/24/23 04:00 04/24/23 04:00 04/24/23 04:39 General: In no apparent distress, Obese. Confused. HEENT: Atraumatic, Normocephalic Respiratory: Normal air movement. On 3L nasal cannula. Diminished Cardiovascular: Edema BLE 1+. Irregular heart rate/rhythm Gastrointestinal: Normal bowel sounds, Soft and benign Integumentary: Erythema and warmth of LLE. s/p debridement of left foot ulcer. Urinary: Fry catheter Laboratory Data - Reviewed Microbiology Data - Reviewed Imagings Data: - Reviewed Medications List: Reviewed Assessment and Plan Problem List Cellulitis of Left Lower Extremity Diabetic Foot Ulcer Diabetes Mellitus type II Atrial Fibrillation Hypertension Ovarian Cancer Morbid Obesity Sepsis secondary to Cellulitis of Left Lower Extremity Concern for Osteomyelitis Left Foot Diabetic Foot Ulcer of Left Foot - XR Left Foot 04/20: " No fracture or dislocation is seen. Osteoporosis. Hallux valgus deformity. Soft tissue ulceration plantar aspect of the right foot. Dimas btle cortical irregularity involves the inferior posterior aspect of calcaneus equivocal for osteomyelitis. Further evaluation with MRI would be helpful." - Blood cultures 04/10: No growth to date - leukocytosis resolved - Afebrile. - Left Foot Wound Culture 04/21: Methicillin-resistant staphylococcus aureus (MRSA) - On Cefepime and Vancomycin (started 04/21) - MRI unable to obtain due to weight/size limit - general surgery consulted - s/p debridement of left foot ulcer 04/[address] South. Recommendations - Wound culture growing MRSA, continue with Vancomycin IV for at least 2 weeks. - Discontinue Cefepime - Concern for osteomyelitis. Follow up with MRI or Bone Scan left foot. If osteomyelitis, recommend 6 weeks of antibiotic therapy. Otherwise, continue anti biotic therapy for 14 days. - s/p debridement, continue wound care per Dr. South - Monitor WBC and fever trends Case discussed with Pierre Lee
--- NOTE | 2023-04-24 08:26 | P.OP ---
Date of Service: 04/24/23 Preop diagnosis: Left foot infected wound Postop diagnosis: Same Procedure performed: Debridement of left foot infected wound 3 x 4 cm to subcutaneous tissue Surgeon: Bay South MD Mechanical Product Engineer: None Estimated blood loss: Minimal Specimen: Debridement tissue Findings: As above Anesthesia: MAC Complications: None Drains: None Fluids and blood products: Nonapplicable Disposition: Recovery room Operative note: Patient brought to the OR and placed in supine position. MAC anesthesia begun. Patient prepped and draped in the usual sterile fashion. Marcaine 0.5% infiltrated locally. 15 blade used to debride necrotic fibrin present in a total area of 3 x 4 cm down to the subcutaneous tissue. Scissors used as well. Then curette was used to debride tissue down to subcutaneous tissue. Wound was irrigated and bleeding controlled cautery. Collagenase dressing was applied. Patient was awakened and taken to recovery room in good general condition. CC:
[2023-04-24] MEDS ORDERED: MORPHINE 4 MG/ML SYR ONE (08:35)
[2023-04-24] MEDS: JUVEN PACKET PO SCH ×2 (09:00→20:18)
[2023-04-24] MEDS: COLLAGENASE 30 GM OINTMENT TOP SCH (09:00)
[2023-04-24] MEDS: FUROSEMIDE 40 MG TABLET PO SCH (10:01)
[2023-04-24] MEDS: carvediloL 12.5 MG TAB PO SCH ×2 (10:01→20:18)
[2023-04-24] MEDS: ENOXAPARIN 40 MG/0.4 ML SQ SCH (10:01)
[2023-04-24] MEDS: ASCORBIC ACID 500 MG TABLET PO SCH (20:18)
[2023-04-24] MEDS: PYRIDOXINE HCL PO SCH (20:18)
[2023-04-24] MEDS: VANCOMYCIN 1.75 GM in NA CHLORIDE 0.9% 500 ML IVPB SCH (23:21)
[2023-04-25] MEDS: HYDROMORPHONE HCL 0.5 MG/0.5 ML INJ IV PRN ×3 (03:00→22:00)
[2023-04-25] MEDS: INSULIN REGULAR (HUMAN) 100 UNIT/ML SQ SCH ×4 (07:30→20:36)
[2023-04-25] MEDS: ARFORMOTEROL TARTRATE 15 MCG/2 ML VIAL.NEB NEB SCH ×2 (08:10→20:00)
[2023-04-25] MEDS: FUROSEMIDE 40 MG TABLET PO SCH (08:43)
[2023-04-25] MEDS: JUVEN PACKET PO SCH ×2 (08:43→21:00)
[2023-04-25] MEDS: carvediloL 12.5 MG TAB PO SCH (08:43)
[2023-04-25] MEDS: COLLAGENASE 30 GM OINTMENT TOP SCH (08:45)
[2023-04-25] MEDS: ENOXAPARIN 40 MG/0.4 ML SQ SCH (08:45)
[2023-04-25] MEDS: ACETAZOLAMIDE 500 MG IV IV SCH ×2 (08:45→21:33)
[2023-04-25] MEDS: NA CHLORIDE 0.9% 1,000 ML IV SCH (11:00)
[2023-04-25 12:17] LABS: Absolute Lymphocytes (CBC) 1.4 K/uL (0.7-4.9); Hematocrit 38.4 % (36.0-45.0); Lymphocytes % 19.3 % (15.3-44.8); MCV 94.6 fL (80-100); MPV 8.2 fL (7.6-11.3); Platelets 173 thou/uL (152-406); RBC Red Blood Cell Count 4.06 M/uL (3.86-4.86)
[2023-04-25 12:29] LABS: Blood O2 Saturation 97.4 % (92-98.5)
[2023-04-25 12:30] LABS: Arterial Blood Carboxyhemoglob 1.4 % (0-1.5); Blood Gas Oxyhemoglobin 95.1 % (94-97)
[2023-04-25 12:34] LABS: Albumin 2.4 g/dL (3.4-5.0); Bilirubin Total 0.6 mg/dL (0.2-1.0); Magnesium 2.2 mg/dL (1.6-2.4); Potassium 4.9 mEq/L (3.5-5.1); Protein, Total 7.4 g/dL (6.4-8.2)
[2023-04-25] MEDS: HYDROMORPHONE ORAL 4 MG TAB PO PRN (15:48)
--- NOTE | 2023-04-25 16:11 | P.PN ---
Date of Service: 04/25/23 Chief Complaint: Osteomyelitis, sepsis, generalized pain Subjective: Patient seen and examined at bedside. Family members in room. Patient is on nonrebreather, A&Ox0, in no apparent distress. ROS unable to obtain. Physical Examination Temp Pulse Resp BP Pulse Ox 97.3 F 88 22 H 134/93 H 98 04/25/23 12:00 04/25/23 13:10 04/25/23 15:48 04/25/23 12:00 04/25/23 15:48 General: In no apparent distress. Oriented x0 HEENT: Atraumatic, Normocephalic Respiratory: Normal air movement. Diminished. On nonrebreather. Cardiovascular: Edema BLE 1+. Irregular heart rate/rhythm Gastrointestinal: Normal bowel sounds, Soft and benign Integumentary: Erythema and warmth of LLE. s/p debridement of left foot ulcer, dressing clean dry and intact. Buttock/inner thighs DTI (POA). Laboratory Data - Reviewed Microbiology Data - Reviewed Imagings Data: - Reviewed Medications List: Reviewed Assessment and Plan Problem List Cellulitis of Left Lower Extremity Diabetic Foot Ulcer Diabetes Mellitus type II Atrial Fibrillation Hypertension Ovarian Cancer Morbid Obesity Sepsis secondary to Cellulitis of Left Lower Extremity Concern for Osteomyelitis Left Foot Diabetic Foot Ulcer of Left Foot - XR Left Foot 04/20: " No fracture or dislocation is seen. Osteoporosis. Hallux valgus deformity. Soft tissue ulceration plantar aspect of the right foot. Subtle cortical irregularity involves the inferior posterior aspect of calcaneus equivocal for osteomyelitis. Further evaluation with MRI would be helpful." - MRI unable to obtain due to weight/size limit. Pending bone scan. - Left Foot Wound Culture 04/21: Methicillin-resistant staphylococcus aureus (MRSA) - Currently on Vancomycin (started 04/21). Cefepime discontinued 04/23. - s/p debridement of left foot ulcer 04/[address] South. - Blood cultures 04/10: No growth to date - leukocytosis resolved - Afebrile. Recommendations - Concern for osteomyelitis. MRI unable to obtain. Pending Bone Scan left foot. If osteomyelitis, recommend 6 weeks of antibiotic therapy. Otherwise, continue antibiotic therapy for 14 days. - MRSA, continue vancomycin IV - s/p debridement, continue wound care per Dr. South - bilateral medial thigh DTI: apply barrier cream - Monitor WBC and fever trends - Pressure offloading measures. Offload heels. Plan of care discussed with family members at bedside. Case discussed with Pierre Lee
--- NOTE | 2023-04-25 19:05 | PN ---
Date of Progress Note: 04/25/2023 Subjective: The patient is having some difficulty breathing. We retaining her CO2. She is not resp onding appropriately at this time. Objective: Vital Signs: Stable. She is afebrile. Laboratory Data: Cultures are growing MRSA. Dressing is clean, dry, and intact. Assessment: Debridement of left foot infected wound. Recommendations: Continue IV antibiotics Wound Care has ordered. Medical management per Medical Ser vice. Consider LTAC for this patient as she has considerable comorbidities. /MODL Voice ID: [id number] Report ID: [id number]
[2023-04-25] MEDS: PYRIDOXINE HCL PO SCH (21:00)
[2023-04-25] MEDS: ASCORBIC ACID 500 MG TABLET PO SCH (21:00)
[2023-04-26] MEDS: carvediloL 12.5 MG TAB PO SCH ×3 (00:03→20:25)
[2023-04-26] MEDS: VANCOMYCIN 1.75 GM in NA CHLORIDE 0.9% 500 ML IVPB SCH ×2 (00:21→23:00)
[2023-04-26] MEDS: INSULIN REGULAR (HUMAN) 100 UNIT/ML SQ SCH ×4 (07:30→21:00)
[2023-04-26] MEDS: FUROSEMIDE 40 MG TABLET PO SCH (07:52)
[2023-04-26] MEDS: ENOXAPARIN 40 MG/0.4 ML SQ SCH ×2 (07:56→08:17)
[2023-04-26] MEDS: NA CHLORIDE 0.9% 1,000 ML IV SCH (08:10)
[2023-04-26] MEDS: JUVEN PACKET PO SCH ×2 (08:12→20:27)
[2023-04-26] MEDS: ACETAZOLAMIDE 500 MG IV IV SCH ×2 (08:12→20:25)
[2023-04-26] MEDS: COLLAGENASE 30 GM OINTMENT TOP SCH (08:15)
[2023-04-26] MEDS: ARFORMOTEROL TARTRATE 15 MCG/2 ML VIAL.NEB NEB SCH ×2 (08:19→19:47)
[2023-04-26] MEDS: HYDROMORPHONE HCL 0.5 MG/0.5 ML INJ IV PRN (09:02)
--- NOTE | 2023-04-26 14:31 | P.PN ---
Date of Service: 04/26/23 Chief Complaint: Osteomyelitis, sepsis, generalized pain Subjective: Patient seen and examined at bedside. On BiPAP. Left lower leg/foot erythema improving. Patient denies any new or worsening complaints at this time. Physical Examination Temp Pulse Resp BP Pulse Ox 97.4 F 82 20 167/89 H 96 04/26/23 08:00 04/26/23 12:27 04/26/23 09:32 04/26/23 08:00 04/26/23 12:27 General: In no apparent distress. Oriented x2 HEENT: Atraumatic, Normocephalic Respiratory: Diminished. On biPAP. Cardiovascular: BLE Edema 1+. Irregular heart rate/rhythm. Gastrointestinal: Normal bowel sounds, Soft and benign. Obese. Integumentary: s/p debridement of left foot ulcer, improving. Buttock/inner thighs DTI (POA). Laboratory Data - Reviewed Microbiology Data - Reviewed Imagings Data: - Reviewed Medications List: Reviewed Assessment and Plan Problem List Cellulitis of Left Lower Extremity Diabetic Foot Ulcer Diabetes Mellitus type II Atrial Fibrillation Hypertension Ovarian Cancer Morbid Obesity Sepsis secondary to Cellulitis of Left Lower Extremity Concern for Osteomyelitis Left Foot Diabetic Foot Ulcer of Left Foot - XR Left Foot 04/20: " No fracture or dislocation is seen. Osteoporosis. Hallux valgus deformity. Soft tissue ulceration plantar aspect of the right foot. Subtle cortical irregularity involves the inferior posterior aspect of calcaneus equivocal for osteomyelitis. Further evaluation with MRI would be helpful." - MRI and Bone Scan unable to obtain due to weight/size limit. - Left Foot Wound Culture 04/21: Methicillin-resistant staphylococcus aureus (MRSA) - Currently on Vancomycin (started 04/21). Cefepime discontinued 04/23. - s/p debridement of left foot ulcer 04/[address] South. - Blood cultures 04/10: No growth to date - leukocytosis resolved - Afebrile. Recommendations Concern for osteomyelitis. MRI and 3phase bone scan unable to obtain due to weight/size limits. MRSA: On Vancomycin Continue Vancomycin IV for 6 weeks duration (04/21 to 06/02). patient will need PICC line. - Continue wound care per Dr. oSuth - bilateral medial thigh DTI: apply barrier cream - Pressure offloading measures. Case discussed with Pierre Lee
[2023-04-26] MEDS: HYDROMORPHONE ORAL 4 MG TAB PO PRN (15:46)
[2023-04-26 19:33] LABS: MPV 8.9 fL (7.6-11.3)
[2023-04-26 19:36] LABS: Absolute Lymphocytes (CBC) 1.4 K/uL (0.7-4.9); Hematocrit 35.4 % (36.0-45.0); MCV 92.9 fL (80-100); Platelets 139 thou/uL (152-406); RBC Red Blood Cell Count 3.81 M/uL (3.86-4.86)
[2023-04-26 19:37] LABS: Platelet Estimate DECR; White Blood Cell Scan OK (OK)
[2023-04-26 19:38] LABS: Blood Morphology Comment NOT SEEN (NOT SEEN)
[2023-04-26 19:50] LABS: Albumin 2.3 g/dL (3.4-5.0); Bilirubin Total 0.5 mg/dL (0.2-1.0); Potassium 4.4 mEq/L (3.5-5.1); Protein, Total 6.8 g/dL (6.4-8.2)
[2023-04-26] MEDS: ASCORBIC ACID 500 MG TABLET PO SCH (20:25)
[2023-04-26] MEDS: PYRIDOXINE HCL PO SCH (21:00)
[2023-04-26 21:16] LABS: Arterial Blood Carboxyhemoglob 1.5 % (0-1.5); Blood Gas Oxyhemoglobin 82.4 % (94-97); Blood O2 Saturation 84.4 % (92-98.5)
[2023-04-27] MEDS ORDERED: LORazepam 2 MG/ML VIAL IV ONE (00:10)
[2023-04-27] MEDS: METHYLPREDNISOLONE 40 MG INJ IV SCH ×2 (01:00→09:03)
[2023-04-27] MEDS: NA CHLORIDE 0.9% 1,000 ML IV SCH (02:57)
[2023-04-27 07:13] LABS: Absolute Lymphocytes (CBC) 0.7 K/uL (0.7-4.9); Hematocrit 35.5 % (36.0-45.0); Lymphocytes % 9.1 % (15.3-44.8); MPV 8.4 fL (7.6-11.3); Platelets 178 thou/uL (152-406); RBC Red Blood Cell Count 3.78 M/uL (3.86-4.86)
[2023-04-27 07:21] LABS: Albumin 2.3 g/dL (3.4-5.0); Bilirubin Total 0.6 mg/dL (0.2-1.0); Potassium 4.6 mEq/L (3.5-5.1); Protein, Total 7.1 g/dL (6.4-8.2)
[2023-04-27] MEDS: INSULIN REGULAR (HUMAN) 100 UNIT/ML SQ SCH ×4 (07:30→21:00)
[2023-04-27] MEDS: ARFORMOTEROL TARTRATE 15 MCG/2 ML VIAL.NEB NEB SCH ×2 (07:55→20:00)
--- NOTE | 2023-04-27 08:03 | RAD REPORT ---
EXAM DESCRIPTION: Isabella Single View04/27/2023 5:50 am CLINICAL HISTORY: Chest pain COMPARISON: April 20, 2023 FINDINGS: Mild bilateral pulmonary opacities Heart is moderately enlarged. There may be small bilateral pleural effusions IMPRESSION: These findings probably indicate CHF
--- NOTE | 2023-04-27 08:26 | P.PN ---
Date of Service: 04/27/23 Chief Complaint: Osteomyelitis, sepsis, generalized pain Subjective: Patient seen and examined at bedside. On BiPAP. + agitation. No acute events reported overnight. Physical Examination Temp Pulse Resp BP Pulse Ox 98.0 F 91 H 20 163/76 H 95 04/27/23 04:00 04/27/23 04:00 04/27/23 04:00 04/27/23 04:00 04/27/23 04:00 General: In no apparent distress. Oriented x2 HEENT: Atraumatic, Normocephalic Respiratory: Diminished. On biPAP. Cardiovascular: BLE Edema 1+. Irregular heart rate/rhythm. Gastrointestinal: Normal bowel sounds, Soft and benign. Obese. Integumentary: s/p debridement of left foot ulcer, improving. Buttock/inner thighs DTI (POA). Laboratory Data - Reviewed Microbiology Data - Reviewed Imagings Data: - Reviewed Medications List: Reviewed Assessment and Plan Problem List Cellulitis of Left Lower Extremity Diabetic Foot Ulcer Diabetes Mellitus type II Atrial Fibrillation Hypertension Ovarian Cancer Morbid Obesity Sepsis secondary to Cellulitis of Left Lower Extremity Concern for Osteomyelitis Left Foot Diabetic Foot Ulcer of Left Foot - XR Left Foot 04/20: " No fracture or dislocation is seen. Osteoporosis. Hallux valgus deformity. Soft tissue ulceration plantar aspect of the right foot. Subtle cortical irregularity involves the inferior posterior aspect of calcaneus equivocal for osteomyelitis. Further evaluation with MRI would be helpful." - MRI and Bone Scan unable to obtain due to weight/size limit. - Left Foot Wound Culture 04/21: Methicillin-resistant staphylococcus aureus (MRSA) - Currently on Vancomycin (started 04/21). Cefepime discontinued 04/23. - s/p debridement of left foot ulcer 04/[address] South. - Blood cultures 04/10: No growth to date - leukocytosis resolved - Afebrile. - XR Chest 04/27: "These findings probably indicate CHF" Recommendations Concern for osteomyelitis. MRI and 3phase bone scan unable to obtain due to weight/size limits. MRSA: On Vancomycin Continue Vancomycin IV for 6 weeks duration (04/21 to 06/02). patient will need PICC line. - Continue wound care per Dr. South - bilateral medial thigh DTI: apply barrier cream - Pressure offloading measures. Bariatric bed. Pending LTAC or SNF placement. Case management/social insurance administrator following. Case discussed with Pierre Lee
[2023-04-27] MEDS: JUVEN PACKET PO SCH ×2 (09:00→20:48)
[2023-04-27] MEDS: VANCOMYCIN 1.5 GM in NA CHLORIDE 0.9% 500 ML IVPB SCH (09:01)
[2023-04-27] MEDS: ACETAZOLAMIDE 500 MG IV IV SCH ×2 (09:04→20:50)
[2023-04-27] MEDS: COLLAGENASE 30 GM OINTMENT TOP SCH (09:04)
[2023-04-27] MEDS: FUROSEMIDE 40 MG TABLET PO SCH (09:05)
[2023-04-27] MEDS: carvediloL 12.5 MG TAB PO SCH ×2 (09:05→20:47)
[2023-04-27] MEDS: HYDROMORPHONE ORAL 4 MG TAB PO PRN ×2 (09:06→22:54)
[2023-04-27] MEDS: ASCORBIC ACID 500 MG TABLET PO SCH (20:48)
[2023-04-27] MEDS: ENSURE MAX PROTEIN 330 ML LIQUID PO SCH (20:49)
[2023-04-27] MEDS: PYRIDOXINE HCL PO SCH (21:00)
[2023-04-28] MEDS: NA CHLORIDE 0.9% 1,000 ML IV SCH (00:53)
[2023-04-28] MEDS: INSULIN REGULAR (HUMAN) 100 UNIT/ML SQ SCH ×4 (07:30→20:02)
[2023-04-28] MEDS: ARFORMOTEROL TARTRATE 15 MCG/2 ML VIAL.NEB NEB SCH ×2 (07:45→20:00)
[2023-04-28] MEDS: COLLAGENASE 30 GM OINTMENT TOP SCH (09:00)
[2023-04-28] MEDS: JUVEN PACKET PO SCH ×2 (09:00→20:02)
[2023-04-28] MEDS: ENSURE MAX PROTEIN 330 ML LIQUID PO SCH ×2 (09:00→20:01)
[2023-04-28] MEDS: VANCOMYCIN 1.5 GM in NA CHLORIDE 0.9% 500 ML IVPB SCH (10:42)
[2023-04-28] MEDS: FUROSEMIDE 40 MG TABLET PO SCH (10:43)
[2023-04-28] MEDS: carvediloL 12.5 MG TAB PO SCH ×3 (10:43→20:03)
[2023-04-28] MEDS: ENOXAPARIN 40 MG/0.4 ML SQ SCH (10:44)
[2023-04-28] MEDS: ACETAZOLAMIDE 500 MG IV IV SCH ×2 (10:44→20:01)
[2023-04-28] MEDS: ASCORBIC ACID 500 MG TABLET PO SCH (20:01)
[2023-04-28] MEDS: PYRIDOXINE HCL PO SCH (20:02)
[2023-04-28] MEDS ORDERED: LORazepam 2 MG/ML VIAL IV ONE (21:00)
[2023-04-29] MEDS: NA CHLORIDE 0.9% 1,000 ML IV SCH ×2 (00:33→16:23)
--- NOTE | 2023-04-29 04:41 | P.PN ---
Date of Service: 04/24/23 Subjective: Patient is still lethargic and weak; patient remains hypercapnic; continue with BIPAP support Physical Exam: Vitals: reviewed GEN: Alert, oriented, NAD CV: Regular rate & rhythm, no edema Pulm: Diminished with end expiratory wheezing; basilar crackles ABD: Soft, nontender, nondistended BS + Integumentary: Diabetic ulcer (Left foot), LLE Cellulitis extending up the area of calf, b/l lymphedema Neuro: No focal deficits Problem List: -Sepsis secondary to diabetic ulceration left foot with concern for osteomyelitis/Cellulitis LLE -Atrial fibrillation noncompliant with anticoagulation -NIDDM2 -Chronic respiratory failure with hypoxia and hypercapnia -Elevated BNP, edema of lower extremities concern for possible CHFunknown EF -Lymphedema PLAN -General surgery consulted; continue cefepime/vanc; cultures are pending -MRI with osteomyelitis. s/p I&D -PRN pain medication -Cardiology consulted; echocardiogram pending, continue lasix, spironolactone; continue with Eliquis -ACHS Accu-Chek, SSI -confirm home medications, restart as appropriate -continue diamox, STEPHANIE nebs; steroids -needs BIPAP support as an outpt
--- NOTE | 2023-04-29 04:43 | P.PN ---
Date of Service: 04/25/23 Subjective: Patient is clinically doing well. Patient denies any new complaints. Patient is more awake and alert today. Continue with BiPAP support a night Physical Exam: Vitals: reviewed GEN: Alert, oriented, NAD CV: Regular rate & rhythm, no edema Pulm: basilar crackles ABD: Soft, nontender, nondistended BS + Integumentary: dressing is C/D/I Neuro: No focal deficits; generalized weakness Problem List: -Sepsis secondary to diabetic ulceration left foot with concern for osteomyelitis/Cellulitis LLE -Atrial fibrillation noncompliant with anticoagulation -DM2 -Chronic respiratory failure with hypoxia and hypercapnia -CHF; EF PLAN -General surgery consulted; continue cefepime/vanc; cultures are pending -MRI with osteomyelitis. s/p I&D; outpt IV abx x 6 weeks -Cardiology consulted; echocardiogram pending, continue lasix, spironolactone; continue with Eliquis -ACHS Accu-Chek, SSI -confirm home medications, restart as appropriate -continue diamox, STEPHANIE nebs; steroids -needs BIPAP support as an outpt
--- NOTE | 2023-04-29 04:47 | P.PN ---
Date of Service: 04/26/23 Subjective: Patient doing well with no new complaints. PCO2 was elevated in venous blood gas. Continue with BiPAP while resting. Monitor sedatives. Physical Exam: Vitals: reviewed GEN: Alert, oriented, NAD CV: Regular rate & rhythm, no edema Pulm: basilar crackles ABD: Soft, nontender, nondistended BS + Integumentary: dressing is C/D/I Neuro: No focal deficits; generalized weakness Problem List: -Sepsis secondary to diabetic ulceration left foot with concern for osteomyelitis/Cellulitis LLE -Atrial fibrillation noncompliant with anticoagulation -DM2 -Chronic respiratory failure with hypoxia and hypercapnia -CHF; EF PLAN -General surgery consulted; continue cefepime/vanc; cultures are pending -MRI with osteomyelitis. s/p I&D; outpt IV abx x 6 weeks; LTAC placement -Cardiology consulted; echocardiogram pending, continue lasix, spironolactone; continue with Eliquis -ACHS Accu-Chek, SSI -confirm home medications, restart as appropriate -continue diamox, STEPHANIE nebs; steroids -needs BIPAP support as an outpt
--- NOTE | 2023-04-29 04:55 | P.PN ---
Date of Service: 04/27/23 Subjective: Patient is more awake and alert; Physical Exam: Vitals: reviewed GEN: Alert, oriented, NAD CV: Regular rate & rhythm, no edema Pulm: basilar crackles ABD: Soft, nontender, nondistended BS + Integumentary: dressing is C/D/I Neuro: No focal deficits; generalized weakness Problem List: -Sepsis secondary to diabetic ulceration left foot with concern for osteomyelitis/Cellulitis LLE -Atrial fibrillation noncompliant with anticoagulation -DM2 -Chronic respiratory failure with hypoxia and hypercapnia -CHF; EF PLAN -General surgery consulted; continue cefepime/vanc; cultures are pending -MRI with osteomyelitis. s/p I&D; outpt IV abx x 6 weeks; LTAC placement -Cardiology consulted; echocardiogram reviewed, continue lasix, spironolactone; continue with Eliquis -ACHS Accu-Chek, SSI -confirm home medications, restart as appropriate -continue diamox, nebs, and steroids -needs BIPAP support as an outpt COMMENTS: 1. NORMAL LEFT VENTRICULAR EJECTION FRACTION GREATER THAN 60% 2. DIASTOLIC DYSFUNCTION 3. MILD CONCENTRIC LEFT VENTRICULAR HYPERTROPHY 4. SEVERE PULMONARY HYPERTENSION WITH RIGHT VENTRICULAR SYSTOLIC PRESSURE GREATER THAN 80 mmHg 5. LEFT ATRIAL ENLARGEMENT 6. SEVERE MITRAL ANNULAR CALCIFICATION WITH MILD MITRAL REGURGITATION
--- NOTE | 2023-04-29 05:00 | P.PN ---
Date of Service: 04/28/23 Subjective: Patient denies any new complaint. She is still sleeping a lot and not eating that much. Will encourage her to have an Ensure shake and at least one meal daily. Will wait for LTAC arrangements Physical Exam: Vitals: reviewed GEN: Alert, oriented, NAD CV: Regular rate & rhythm, no edema Pulm: basilar crackles ABD: Soft, nontender, nondistended BS + Integumentary: dressing is C/D/I Neuro: No focal deficits; generalized weakness Problem List: -Sepsis secondary to diabetic ulceration left foot with concern for osteomyelitis/Cellulitis LLE -Atrial fibrillation noncompliant with anticoagulation -DM2 -Chronic respiratory failure with hypoxia and hypercapnia -CHF; EF WNL -Morbid obesity -Anorexia PLAN -General surgery consulted; continue cefepime/vanc; cultures are pending -MRI with osteomyelitis. s/p I&D; outpt IV abx x 6 weeks; LTAC placement -Cardiology consulted; echocardiogram reviewed, continue lasix, spironolactone; continue with Eliquis -ACHS Accu-Chek, SSI -confirm home medications, restart as appropriate -continue diamox, nebs, and steroids -needs BIPAP support as an outpt COMMENTS: 1. NORMAL LEFT VENTRICULAR EJECTION FRACTION GREATER THAN 60% 2. DIASTOLIC DYSFUNCTION 3. MILD CONCENTRIC LEFT VENTRICULAR HYPERTROPHY 4. SEVERE PULMONARY HYPERTENSION WITH RIGHT VENTRICULAR SYSTOLIC PRESSURE GREATER THAN 80 mmHg 5. LEFT ATRIAL ENLARGEMENT 6. SEVERE MITRAL ANNULAR CALCIFICATION WITH MILD MITRAL REGURGITATION
[2023-04-29] MEDS: ARFORMOTEROL TARTRATE 15 MCG/2 ML VIAL.NEB NEB SCH ×2 (07:25→20:10)
[2023-04-29] MEDS: INSULIN REGULAR (HUMAN) 100 UNIT/ML SQ SCH ×4 (07:30→20:05)
[2023-04-29 07:43] LABS: Absolute Lymphocytes (CBC) 1.5 K/uL (0.7-4.9); Hematocrit 39.2 % (36.0-45.0); Lymphocytes % 17.5 % (15.3-44.8); MCV 95.7 fL (80-100); MPV 8.4 fL (7.6-11.3); Platelets 177 thou/uL (152-406)
[2023-04-29] MEDS ORDERED: ALBUMIN HUMAN 25% 12.5 GM, FUROSEMIDE 100 MG in NA CHLORIDE 0.9% 40 ML IV SCH (08:00)
[2023-04-29 08:02] LABS: Albumin 2.6 g/dL (3.4-5.0); Bilirubin Total 0.4 mg/dL (0.2-1.0); Magnesium 2.1 mg/dL (1.6-2.4); Potassium 4.5 mEq/L (3.5-5.1); Protein, Total 7.4 g/dL (6.4-8.2)
[2023-04-29] MEDS: JUVEN PACKET PO SCH ×2 (09:00→20:04)
[2023-04-29] MEDS: ENSURE MAX PROTEIN 330 ML LIQUID PO SCH ×2 (09:00→20:04)
[2023-04-29] MEDS: predniSONE 20 MG TAB PO SCH ×2 (09:00→20:04)
[2023-04-29] MEDS: VANCOMYCIN 1.5 GM in NA CHLORIDE 0.9% 500 ML IVPB SCH (09:00)
[2023-04-29] MEDS: acetaZOLAMIDE 250 MG TAB PO SCH ×2 (09:30→20:04)
[2023-04-29] MEDS: ENOXAPARIN 40 MG/0.4 ML SQ SCH (09:30)
[2023-04-29] MEDS: carvediloL 12.5 MG TAB PO SCH ×2 (09:31→20:04)
[2023-04-29] MEDS: COLLAGENASE 30 GM OINTMENT TOP SCH (09:33)
[2023-04-29] MEDS: HYDROMORPHONE ORAL 4 MG TAB PO PRN (13:27)
[2023-04-29] MEDS: VANCOMYCIN 1 GM in NA CHLORIDE 0.9% 250 ML IVPB SCH (16:23)
[2023-04-29] MEDS: ASCORBIC ACID 500 MG TABLET PO SCH (20:04)
[2023-04-29] MEDS: PYRIDOXINE HCL PO SCH (20:05)
[2023-04-30] MEDS: INSULIN REGULAR (HUMAN) 100 UNIT/ML SQ SCH ×4 (07:30→21:00)
[2023-04-30] MEDS: ARFORMOTEROL TARTRATE 15 MCG/2 ML VIAL.NEB NEB SCH ×2 (08:00→19:46)
--- NOTE | 2023-04-30 08:07 | P.PN ---
Date of Service: 04/30/23 Chief Complaint: Osteomyelitis, sepsis, generalized pain Subjective: Patient seen and examined at bedside. On 3L nasal cannula. Overnight, patient agitated and removing BiPAP; she was then placed on 3L nasal cannula and monitored closely. Physical Examination Temp Pulse Resp BP Pulse Ox 97.5 F 96 H 18 165/77 H 96 04/30/23 04:00 04/30/23 04:00 04/30/23 04:00 04/30/23 04:00 04/30/23 04:00 General: Agitated. Oriented x1. HEENT: Atraumatic, Normocephalic Respiratory: Diminished. On 3L nasal cannula. Cardiovascular: BLE Edema 1+. Irregular heart rate/rhythm. Gastrointestinal: Normal bowel sounds, Soft and benign. Obese. Integumentary: s/p debridement of left foot ulcer, improving. Buttock/inner thighs DTI (POA). Laboratory Data - Reviewed Microbiology Data - Reviewed Imagings Data: - Reviewed Medications List: Reviewed Assessment and Plan Problem List Cellulitis of Left Lower Extremity Diabetic Foot Ulcer Diabetes Mellitus type II Atrial Fibrillation Hypertension Ovarian Cancer Morbid Obesity Sepsis secondary to Cellulitis of Left Lower Extremity Concern for Osteomyelitis Left Foot Diabetic Foot Ulcer of Left Foot - XR Left Foot 04/20: " No fracture or dislocation is seen. Osteoporosis. Hallux valgus deformity. Soft tissue ulceration plantar aspect of the right foot. Subtle cortical irregularity involves the inferior posterior aspect of calcaneus equivocal for osteomyelitis. Further evaluation with MRI would be helpful." - MRI and Bone Scan unable to obtain due to weight/size limit. - Left Foot Wound Culture 04/21: Methicillin-resistant staphylococcus aureus (MRSA) - Currently on Vancomycin (started 04/21). Cefepime discontinued 04/23. - s/p debridement of left foot ulcer 04/[address] South. MRI and 3phase bone scan unable to obtain due to weight/size limits. - Blood cultures 04/10: No growth to date - leukocytosis resolved - Afebrile. - XR Chest 04/27: "These findings probably indicate CHF" Recommendations - Continue Vancomycin IV for 6 weeks duration (04/21 to 06/02). Patient will need PICC line. - Continue wound care per Dr. South - Bilateral medial thigh DTI: apply barrier cream - Pressure offloading measures. Bariatric bed. Pending LTAC or SNF placement. Case management/social service agency director following. Case discussed with Pierre Lee
[2023-04-30] MEDS: ENSURE MAX PROTEIN 330 ML LIQUID PO SCH ×2 (09:00→21:00)
[2023-04-30] MEDS: JUVEN PACKET PO SCH ×2 (09:00→21:00)
[2023-04-30] MEDS: predniSONE 20 MG TAB PO SCH ×2 (09:00→21:00)
[2023-04-30] MEDS: carvediloL 12.5 MG TAB PO SCH ×2 (10:34→21:00)
[2023-04-30] MEDS: ENOXAPARIN 40 MG/0.4 ML SQ SCH (10:34)
[2023-04-30] MEDS: acetaZOLAMIDE 250 MG TAB PO SCH ×2 (10:35→21:00)
[2023-04-30] MEDS: COLLAGENASE 30 GM OINTMENT TOP SCH (10:38)
[2023-04-30] MEDS: NA CHLORIDE 0.9% 1,000 ML IV SCH (11:00)
[2023-04-30] MEDS: HYDROMORPHONE ORAL 4 MG TAB PO PRN (15:51)
[2023-04-30 16:55] LABS: Arterial Blood Carboxyhemoglob 1.3 % (0-1.5); Blood Gas Oxyhemoglobin 71.2 % (94-97)
[2023-04-30] MEDS: VANCOMYCIN 1 GM in NA CHLORIDE 0.9% 250 ML IVPB SCH (17:00)
--- NOTE | 2023-04-30 17:59 | P.PN ---
Subjective Date of Service: 04/30/23 <Olaf Mccurdy - Last Filed: 04/30/23 18:00> Date of Service: 04/30/23 Chief Complaint: Osteomyelitis, sepsis, generalized pain Subjective: Worsening 04/30/23; Maria Teresa has refused treatment with the Bipap machine as well as refused blood draws and IV medications. She is in acute distress with increased work of breathing and cyanotic lips. Her daughter is at her bedside trying to help her feel comfortable. Dr. Mccurdy and KISHORE Mak met with the family for a discussion concerning Maria Teresa's prognosis. The family will meet to [facility] to make further decisions concerning end of like. Will redraw the ABG at 1900 with a chest xray to help determine the need to intubate or provide comfort measures. <Bhumika Mak - Last Filed: 04/30/23 19:50> Review of Systems General: Weakness, Malaise Respiratory: Shortness of Breath, Wheezing <Bhumika Mak - Last Filed: 04/30/23 19:50> Physical Examination - Vital Signs Temperature: 97.6 F Blood Pressure: 129/61 Pulse: 89 Respirations: 18 Pulse Ox (%): 98 <Bhumika Mak - Last Filed: 04/30/23 19:50> Assessment And Plan Physician Review: Patient Assessed, Agree with Above Assessment and Plan Physician Review Additional Text: She was seen on rounds, and appears altered with respiratory distress. ABG revealed a pH of 7.20, PCO2 of 94.7, and a PO2 of 46.6. Suspect her poor respiratory status to be secondary to a combination of obesity hypoventilation syndrome (Pickwickian syndrome) as well as severe pulmonary hypertension. She is currently not willing to wear the BiPAP mask and we have been able to convince her to start Vapotherm. I had an extensive goals of care discussion with her (Mr. Boles) and her daughter (Ms. Waller), at bedside. KISHORE Mak, was present at bedside for this discussion. We discussed goals of care including, but not limited to, continued diseasedirected therapy versus symptomdirected management/hospice services. They stated that, at this time, they are unsure what she would want. They have advised that we continue with disease directed care. We also had an extensive discussion regarding Code Status, and they would like to discuss this with other family members prior to making a decision. For now, we will obtain a repeat chest x-ray, place a PICC line, serial ABG, and a Pulmonology consultation. PEN RIDER Obdulio has contacted Dr. Gonzáles recommendations are appreciated. She remains a Full Code at this time. We will continue to monitor closely in the ICU. <Olaf Mccurdy - Last Filed: 04/30/23 18:00> - Plan Physical Exam: Vitals: reviewed GEN: Alert, oriented, Acute distress CV: Regular rate & rhythm, no edema Pulm: basilar crackles ABD: Soft, nontender, nondistended BS + Integumentary: dressing is C/D/I Neuro: No focal deficits; generalized weakness Problem List: -Sepsis secondary to diabetic ulceration left foot with concern for osteomyelitis/Cellulitis LLE -Atrial fibrillation noncompliant with anticoagulation -DM2 -Chronic respiratory failure with hypoxia and hypercapnia -CHF; EF WNL -Morbid obesity PLAN -General surgery consulted; continue vanc (will need to restart an IV); cultures are pending -MRI with osteomyelitis. s/p I&D; outpt IV abx x 6 weeks; LTAC placement -Cardiology consulted; echocardiogram reviewed, continue lasix, spironolactone; continue with Eliquis -ACHS Accu-Chek, SSI -confirm home medications, restart as appropriate -continue diamox, nebs, and steroids -needs BIPAP support as an outpt COMMENTS: 1. NORMAL LEFT VENTRICULAR EJECTION FRACTION GREATER THAN 60% 2. DIASTOLIC DYSFUNCTION 3. MILD CONCENTRIC LEFT VENTRICULAR HYPERTROPHY 4. SEVERE PULMONARY HYPERTENSION WITH RIGHT VENTRICULAR SYSTOLIC PRESSURE GREATER THAN 80 mmHg 5. LEFT ATRIAL ENLARGEMENT 6. SEVERE MITRAL ANNULAR CALCIFICATION WITH MILD MITRAL REGURGITATION Time Spent Managing PTS Care (In Minutes): 35 <Bhumika Mak - Last Filed: 04/30/23 19:50>
[2023-04-30] MEDS ORDERED: LORazepam 2 MG/ML VIAL IV ONE (18:16)
--- NOTE | 2023-04-30 18:22 | RAD REPORT ---
EXAM DESCRIPTION: Isabella Single View04/30/2023 5:50 pm CLINICAL HISTORY: Chest pain COMPARISON: April 27, 2023 FINDINGS: [id number] bilateral pulmonary opacities Cardiomegaly Probable small pleural effusions IMPRESSION: These findings probably indicate mild to moderate CHF
[2023-04-30] MEDS ORDERED: LORazepam 2 MG/ML VIAL IM ONE (20:05)
[2023-04-30] MEDS: ASCORBIC ACID 500 MG TABLET PO SCH (21:00)
[2023-04-30] MEDS: PYRIDOXINE HCL PO SCH (21:00)
[2023-04-30] MEDS: Mupirocin NASAL 2 APPL/1 GM TUBE NAS SCH (21:00)
[2023-04-30 21:25] LABS: Arterial Blood Carboxyhemoglob 1.4 % (0-1.5); Blood Gas Oxyhemoglobin 94.6 % (94-97)
[2023-04-30 23:26] LABS: Arterial Blood Carboxyhemoglob 1.5 % (0-1.5); Blood Gas Oxyhemoglobin 78.4 % (94-97)
[2023-05-01 04:58] LABS: Hematocrit 35.6 % (36.0-45.0); Lymphocytes % 14.1 % (15.3-44.8); MCV 93.4 fL (80-100); MPV 8.7 fL (7.6-11.3); Platelets 157 thou/uL (152-406); RBC Red Blood Cell Count 3.82 M/uL (3.86-4.86)
[2023-05-01 05:09] LABS: Potassium 4.2 mEq/L (3.5-5.1)
[2023-05-01] MEDS: NA CHLORIDE 0.9% 1,000 ML IV SCH (05:43)
[2023-05-01] MEDS: INSULIN REGULAR (HUMAN) 100 UNIT/ML SQ SCH ×4 (07:30→20:14)
[2023-05-01] MEDS ORDERED: DEXMEDETOMIDINE HCL 1,000 MCG in NA CHLORIDE 0.9% 490 ML IV SCH (08:00)
[2023-05-01] MEDS: ARFORMOTEROL TARTRATE 15 MCG/2 ML VIAL.NEB NEB SCH ×2 (08:00→20:02)
[2023-05-01] MEDS: ENOXAPARIN 40 MG/0.4 ML SQ SCH (08:46)
[2023-05-01] MEDS: VANCOMYCIN 1 GM in NA CHLORIDE 0.9% 250 ML IVPB SCH (08:46)
[2023-05-01] MEDS: COLLAGENASE 30 GM OINTMENT TOP SCH (08:47)
[2023-05-01] MEDS: ENSURE MAX PROTEIN 330 ML LIQUID PO SCH ×2 (08:47→20:14)
[2023-05-01] MEDS: carvediloL 12.5 MG TAB PO SCH ×2 (08:47→20:10)
[2023-05-01] MEDS: Mupirocin NASAL 2 APPL/1 GM TUBE NAS SCH ×2 (08:47→20:09)
[2023-05-01 08:49] LABS: Arterial Blood Carboxyhemoglob 1.2 % (0-1.5); Blood Gas Oxyhemoglobin 96.3 % (94-97); Blood O2 Saturation 98.7 % (92-98.5)
[2023-05-01] MEDS ORDERED: VANCOMYCIN 1 GM/VIAL ONE (08:55)
[2023-05-01] MEDS: JUVEN PACKET PO SCH ×2 (09:00→20:13)
--- NOTE | 2023-05-01 09:12 | P.PN ---
Subjective Date of Service: 05/01/23 Chief Complaint: Osteomyelitis, sepsis, generalized pain Subjective: Improving Was noted to be in respiratory distress yesterday, ABG revealed hypercapnic respiratory failure. Patient was placed on BiPAP and has tolerated it well overnight, ABG improved this morning. Tolerating BiPAP currently. <Casimiro Marr - Last Filed: 05/01/23 09:07> Date of Service: 05/01/23 <Olaf Mccurdy - Last Filed: 05/01/23 12:26> Review of Systems 10-point ROS is otherwise unremarkable Respiratory: Shortness of Breath, As per HPI <CamidanielCasimiro Amos - Last Filed: 05/01/23 09:07> Physical Examination - Vital Signs Temperature: 97.3 F Blood Pressure: 156/92 Pulse: 86 Respirations: 18 Pulse Ox (%): 100 - Physical Exam General: Alert, In no apparent distress, Oriented x2, Obese HEENT: Atraumatic, PERRLA, EOMI Neck: Supple, JVD not distended Respiratory: Diminished, Other (on bipap, no distress) Cardiovascular: No edema, Regular rate/rhythm, Normal S1 S2 Capillary refill: <2 Seconds Gastrointestinal: Normal bowel sounds, No tenderness Musculoskeletal: No tenderness Integumentary: No rashes Neurological: Normal speech, Normal tone, Normal affect - Studies Medications List Reviewed: Yes <CamidanielCasimiro Hernandez Dandre - Last Filed: 05/01/23 09:07> Assessment And Plan - Plan Assessment: acute on chronic hypercapnic/hypoxic respiratory failure secondary to pulmonary hypertension/obesity hypoventilation syndrome Sepsis secondary to diabetic ulceration left foot with concern for osteomyelitis/Cellulitis left lower extremity S/P debridement Atrial fibrillation noncompliant with anticoagulation Diabetes mellitus type [id number] Chronic diastolic congestive heart failure Morbid obesity Plan acute on chronic hypercapnic/hypoxic respiratory failure secondary to pulmonary hypertension/obesity hypoventilation syndrome ABG improving, continue BiPAP/ICU level of care. Pulmonology consulted. LTAC consult in place, echocardiogram revealed normal EF. Appreciate further input from pulmonology. Sepsis secondary to diabetic ulceration left foot with concern for osteomyelitis/Cellulitis left lower extremity S/P debridement PICC line in place, continue vancomycin will need total of 6 weeks IV antibiotics. Atrial fibrillation noncompliant with anticoagulation Continue Eliquis, monitor on telemetry. Diabetes mellitus type [id number] ACHS Accu-Chek, sliding scale insulin. Chronic diastolic congestive heart failure Continue diuresis with Lasix, appreciate further input from cardiology. Morbid obesity DVT PPX: eliquis Code status: Full Physician Review: Patient Assessed, Agree with Above Assessment and Plan <Casimiro Marr - Last Filed: 05/01/23 09:07> Physician Review: Patient Assessed, Agree with Above Assessment and Plan Physician Review Additional Text: Overnight, she was monitored in the ICU. Initially, her ABG results worsened. She was placed on BiPAP with improvement in her hypercapnia and hypoxemia. She was seen on rounds this morning with Dr. Gonzáles, who recommended BiPAP at discharge. In regards to placement, LTAC was denied by her insurance. Expedited appeal has been initiated. <Olaf Mccurdy - Last Filed: 05/01/23 12:26>
[2023-05-01] MEDS: ACETAZOLAMIDE 500 MG IV IV SCH ×2 (09:36→20:10)
[2023-05-01] MEDS: WATER FOR INJ,STERILE 10 ML IV SCH ×2 (09:37→20:10)
--- NOTE | 2023-05-01 11:32 | P.PN ---
Subjective Date of Service: 05/01/23 Chief Complaint: Respiratory failure Patient is 78 years of age was admitted initially admitted with a foot infection developed altered mental status as well as was found to be hypoxic hypercapnic with respiratory acidosis acute on chronic I suspect that she has obesity hypoventilation syndrome was transferred to the ICU and was placed on BiPAP currently on dexmedetomidine drip unresponsive Review of Systems is unable to be obtained Physical Examination - Vital Signs Temperature: 97.3 F Blood Pressure: 137/76 Pulse: 71 Respirations: 19 Pulse Ox (%): 95 - Physical Exam General: Unresponsive Respiratory: Clear to auscultation bilaterally, Diminished Cardiovascular: Regular rate/rhythm, Normal S1 S2, Edema, Irregular heart rate/rhythm Gastrointestinal: Normal bowel sounds, Soft and benign - Studies Medications List Reviewed: Yes Assessment And Plan - Current Problems (Diagnosis) (1) Type 2 diabetes mellitus with foot ulcer Current Visit: No Status: Acute Plan: Unable to do an MRI MRSA isolated patient is on vancomycin Qualifiers: 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 insulin use: without body shop floorperson use Qualified Code(s): E11.621 - Type 2 diabetes mellitus with foot ulcer; L97.509 - Non- pressure chronic ulcer of other part of unspecified foot with unspecified severity (2) Chronic respiratory failure with hypoxia and hypercapnia Current Visit: Yes Status: Acute Plan: Patient has I suspect obesity hypoventilation syndrome/obstructive sleep apnea patient is on BiPAP will and request to the hospice social worker for a BiPAP discussed with the daughter prognosis poor labs chest x-rays reviewed started patient on IV Diamox is on bronchodilators DC steroids add thiamine Physician Review: Patient Assessed, Agree with Above Assessment and Plan
[2023-05-01 11:49] LABS: Arterial Blood Carboxyhemoglob 1.5 % (0-1.5); Blood Gas Oxyhemoglobin 86.3 % (94-97); Blood O2 Saturation 88.7 % (92-98.5)
[2023-05-01] MEDS: THIAMINE 200 MG/2 ML INJ IVP SCH ×2 (12:05→20:11)
--- NOTE | 2023-05-01 13:30 | RAD REPORT ---
EXAM DESCRIPTION: RAD - Chest Single View - 04/30/2023 11:53 pm CLINICAL HISTORY: 78 years, Female, PICC placement COMPARISON: 04/30/2023 performed at 5:50 PM FINDINGS: 1 x-ray views of the chest (portable) was obtained. Prior films were compared. There has b een interval placement of a right upper extremity PICC line tip of the catheter within the superior v campos cava in good position. The lung volume is decreased. The heart is prominent. There is increase in terstitial pulmonary markings. Small trace bilateral pleural effusions. The rest of the soft tissue a nd bony structures demonstrate to be unremarkable. IMPRESSION: Right upper extremity PICC line in good position. Cardiomegaly with increase interstitial pulmonary markings and small bilateral pleural effusions. Osmani dings suggest CHF. Electronically signed by: Gustavo Lyles MD 05/01/2023 12:05 AM CDT Due to temporary technical issues with the PACS/Fluency reporting system, reports are being signed by the in house radiologists without review as a courtesy to insure prompt reporting. The interpreting radiologist is fully responsible for the content of the report.
--- NOTE | 2023-05-01 13:51 | P.PN ---
Date of Service: 05/01/23 Chief Complaint: Osteomyelitis, sepsis, generalized pain Subjective: Yesterday patient was in respiratory distress, subsequently transferred to ICU due to hypercapnic respiratory failure. Patient seen and examined in ICU. On BiPAP. Daughter at bedside. Physical Examination Temp Pulse Resp BP Pulse Ox 96.9 F 80 17 155/95 H 94 05/01/23 12:00 05/01/23 13:00 05/01/23 13:00 05/01/23 13:00 05/01/23 13:00 General: On precedex drip. In no apparent distress. HEENT: Atraumatic, Normocephalic Respiratory: Diminished. On BiPAP. Cardiovascular: BLE Edema. Irregular heart rate/rhythm. Gastrointestinal: Normal bowel sounds, Soft and benign. Obese. Integumentary: s/p debridement of left foot ulcer, improving. Buttocks DTI (POA). Laboratory Data - Reviewed Microbiology Data - Reviewed Imagings Data: - Reviewed Medications List: Reviewed Assessment and Plan Problem List Cellulitis of Left Lower Extremity Suspected Osteomyelitis Left Foot Diabetic Foot Ulcer Diabetes Mellitus type II Atrial Fibrillation Hypertension Ovarian Cancer Morbid Obesity Sepsis secondary to Cellulitis of Left Lower Extremity Concern for Osteomyelitis Left Foot Diabetic Foot Ulcer of Left Foot - XR Left Foot 04/20: " No fracture or dislocation is seen. Osteoporosis. Hallux valgus deformity. Soft tissue ulceration plantar aspect of the right foot. Subtle cortical irregularity involves the inferior posterior aspect of calcaneus equivocal for osteomyelitis. Further evaluation with MRI would be helpful." - MRI and Bone Scan unable to obtain due to weight/size limit. - Left Foot Wound Culture 04/21: Methicillin-resistant staphylococcus aureus (MRSA) - Currently on Vancomycin (started 04/21). Cefepime discontinued 04/23. - s/p debridement of left foot ulcer 04/[address] South. MRI and 3phase bone scan unable to obtain due to weight/size limits. - Blood cultures 04/10: No growth to date - leukocytosis resolved - Afebrile. Hypercapnic respiratory failure: pulmonology consulted. Recommendations - Osteomyelitis left foot: Continue Vancomycin IV for 6 weeks duration (04/21 to 06/02). - Continue wound care per Dr. South - Pressure offloading measures. Bariatric bed. Apply barrier cream to sacrum/buttocks Pending LTAC or SNF placement. Case management/professor of social work following. Case discussed with Pierre Lee
[2023-05-01] MEDS: ASCORBIC ACID 500 MG TABLET PO SCH (20:09)
[2023-05-01] MEDS: PYRIDOXINE HCL PO SCH (20:11)
[2023-05-02] MEDS ORDERED: HYDRALAZINE HCL 20 MG/ML VIAL IV PRN (00:35)
[2023-05-02 05:34] LABS: Potassium 3.8 mEq/L (3.5-5.1)
[2023-05-02] MEDS: INSULIN REGULAR (HUMAN) 100 UNIT/ML SQ SCH ×2 (07:30→11:30)
[2023-05-02] MEDS: ARFORMOTEROL TARTRATE 15 MCG/2 ML VIAL.NEB NEB SCH (08:00)
[2023-05-02] MEDS ORDERED: HYDROMORPHONE HCL 0.5 MG/0.5 ML INJ IV ONE (08:00)
[2023-05-02] MEDS: Mupirocin NASAL 2 APPL/1 GM TUBE NAS SCH (08:23)
[2023-05-02] MEDS: ACETAZOLAMIDE 500 MG IV IV SCH (08:23)
[2023-05-02] MEDS: carvediloL 12.5 MG TAB PO SCH (08:23)
[2023-05-02] MEDS: ENOXAPARIN 40 MG/0.4 ML SQ SCH (08:23)
[2023-05-02] MEDS: JUVEN PACKET PO SCH (08:23)
[2023-05-02] MEDS: ENSURE MAX PROTEIN 330 ML LIQUID PO SCH (08:23)
[2023-05-02] MEDS: VANCOMYCIN 1 GM in NA CHLORIDE 0.9% 250 ML IVPB SCH (08:24)
[2023-05-02] MEDS: THIAMINE 200 MG/2 ML INJ IVP SCH (08:24)
[2023-05-02] MEDS: WATER FOR INJ,STERILE 10 ML IV SCH (08:24)
--- NOTE | 2023-05-02 08:38 | P.DS ---
Admission Date: 04/21/23 Discharge Date: 05/02/23 Reason for Admission: Respiratory failure Consultations: Pulmonology Infectious disease Cardiology Nephrology General surgery Brief History of Present Illness: 78-year-old female with history of hypertension, diabetes mellitus type [id number], chronic pain, atrial fibrillation noncompliant with anticoagulation secondary to bleeding, chronic wounds of lower extremities/lymphedema presents to the emergency department chief complaint of left lower extremity pain, worsening of wound to the left foot. She was evaluated in the emergency department her labs were significant for white blood cell count 12.9 hemoglobin 11.6 hematocrit 34.9 sodium 133 creatinine 1.12 BUN 31 GFR 50 glucose 156 lactic acid 0.9 BNP 3390 chest x-ray showed pulmonary vascular congestion, moderate cardiomegaly. X-ray of the left foot showed subtle cortical irregularity involves the inferior posterior aspect of calcaneus equivocal for osteomyelitis. Patient was started on broad-spectrum antibiotics, ED provider wishes to admit for possible osteomyelitis, cellulitis left lower extremity, possible CHF. Hospital Course: Patient was admitted for suspected osteomyelitis of the left lower extremity, she was started on broad-spectrum antibiotics seen by general surgery and had a debridement of the area. She had a PICC line placed and plan was for DC [facility] for long-term antibiotics/rehab. During her admission she developed hypercapnic respiratory failure related to pulmonary hypertension/obesity hypoventilation syndrome, she became confused for around 48 hours. This morning when rounding patient was very keen/alert and oriented x3 clearly able to state her name, location and the current year with her daughter at bedside. She was asking to take off the BiPAP mask to be put on hospice, she did not want any further aggressive medical care. She stated she would not want to be resuscitated in the event that her heart stopped or if she stopped breat melvin and would like to pursue comfort measures/hospice. This was discussed at length with her and her daughter who is at bedside by Dr. Mccurdy and myself. It was made clear that she only wanted comfort measures/hospice no further aggressive medical care. Dr. Mccurdy discussed this with other attendings on the case who were amendable to plan of hospice. CODE STATUS changed in chart, sr. social media & mobile manager consult placed for inpatient hospice. Patient currently on high flow nasal cannula, no longer wants to wear BiPAP. <Casimiro Marr - Last Filed: 05/02/23 08:32> Admission Date: 04/21/23 Discharge Date: 05/02/23 Hospital Course: This morning, she is alert and oriented x 3. Her daughter (Ms. Waller) and [employer] ATTENDANT Tejinder, were at bedside during rounds. was very clear that she does not want any additional aggressive measures. She stated that she does not want to wear the BiPAP mask any longer as it is very uncomfortable. We discussed code status and she indicated that, in the event of cardiopulmonary arrest, she would not want any chest compressions, intubation, or defibrillation. She stated that she would like to be switched to hospice services. It was explained to her that hospice ideology changes the plan of care from a diseasedirected approach to a symptomdirected approach. She was able to verbalize this and stated that she would just like to be comfortable. I reviewed this discussion with the rest of the team (Dr. South, Dr. Gonzáles, Dr. Em), who all agreed that hospice is approprite given her co-morbidities. She has been switched to the inpatient hospice team per her request. Based on her ability to understand her disease process, communicate that she would like to be discharged to hospice, and her ability to explain her rationale, we believe that she has medical decision making capacity. <Olaf Mccurdy - Last Filed: 05/02/23 18:13> Disposition: HOSPICE-MEDICAL FACILITY Discharge Condition: SERIOUS Vital Signs/Physical Exam: Temp Pulse Resp BP Pulse Ox 96.8 F 80 23 H 156/97 H 99 05/02/23 04:00 05/02/23 06:00 05/02/23 08:12 05/02/23 06:00 05/02/23 08:12 General: Alert, In no apparent distress, Oriented x3, Obese HEENT: Atraumatic, PERRLA, EOMI Neck: Supple, JVD not distended Respiratory: Other (increased work of breathing, mild distress) Cardiovascular: Regular rate/rhythm, Normal S1 S2 Capillary refill: <2 Seconds Gastrointestinal: Normal bowel sounds, No tenderness Musculoskeletal: No tenderness Integumentary: No rashes Neurological: Normal speech, Normal tone, Normal affect Lymphatics: No axilla or inguinal lymphadenopathy Laboratory Data at Discharge: WBC 7.30 thou/uL (4.3-10.9) 05/01/23 04:30 Hgb 11.3 g/dL (12.0-15.0) L 05/01/23 04:30 Hct 35.6 % (36.0-45.0) L 05/01/23 04:30 Plt Count 157 thou/uL (152-406) 05/01/23 04:30 Sodium 144 mEq/L (136-145) 05/02/23 04:55 Potassium 3.8 mEq/L (3.5-5.1) 05/02/23 04:55 BUN 41 mg/dL (7-18) H 05/02/23 04:55 Creatinine 0.79 mg/dL (0.55-1.02) 05/02/23 04:55 Glucose 182 mg/dL (74-106) H 05/02/23 04:55 Magnesium 2.1 mg/dL (1.6-2.4) 04/29/23 07:25 Total Bilirubin 0.4 mg/dL (0.2-1.0) 04/29/23 07:25 AST 17 U/L (15-37) 04/29/23 07:25 ALT 24 U/L (13-56) 04/29/23 07:25 Alkaline Phosphatase 73 U/L (45-117) 04/29/23 07:25 <Casimiro Marr - Last Filed: 05/02/23 08:32> Vital Signs/Physical Exam: Temp Pulse Resp BP Pulse Ox 98.4 F 86 16 147/75 H 97 05/02/23 16:00 05/02/23 17:00 05/02/23 11:21 05/02/23 17:00 05/02/23 17:00 Laboratory Data at Discharge: WBC 7.30 thou/uL (4.3-10.9) 05/01/23 04:30 Hgb 11.3 g/dL (12.0-15.0) L 05/01/23 04:30 Hct 35.6 % (36.0-45.0) L 05/01/23 04:30 Plt Count 157 thou/uL (152-406) 05/01/23 04:30 Sodium 144 mEq/L (136-145) 05/02/23 04:55 Potassium 3.8 mEq/L (3.5-5.1) 05/02/23 04:55 BUN 41 mg/dL (7-18) H 05/02/23 04:55 Creatinine 0.79 mg/dL (0.55-1.02) 05/02/23 04:55 Glucose 182 mg/dL (74-106) H 05/02/23 04:55 Magnesium 2.1 mg/dL (1.6-2.4) 04/29/23 07:25 Total Bilirubin 0.4 mg/dL (0.2-1.0) 04/29/23 07:25 AST 17 U/L (15-37) 04/29/23 07:25 ALT 24 U/L (13-56) 04/29/23 07:25 Alkaline Phosphatase 73 U/L (45-117) 04/29/23 07:25 <Olaf Mccurdy - Last Filed: 05/02/23 18:13> Diet: Regular Time spent managing pt's care (in minutes): 35 <Casimiro Marr - Last Filed: 05/02/23 08:32> <Olaf Mccurdy - Last Filed: 05/02/23 18:13> Home Medications: carvediloL [Coreg*] 12.5 mg PO BID #60 tab 07/01/18 Metformin HCl 500 mg PO BID 05/26/22 Apixaban [Eliquis] 5 mg PO BID #60 tab 05/27/22 Ascorbate Calcium [Vitamin C] 500 mg PO BEDTIME 04/21/23 Bifidobacterium Infantis [Align] 2 cap PO DAILY 04/21/23 Cholecalciferol (Vitamin D3) [Vitamin D3] 2,000 unit PO BEDTIME 04/21/23 Ayan [Ayan*] 2 pkt PO BID 04/21/23 Losartan Potassium [Cozaar] 50 mg PO DAILY 04/21/23 Magnesium Glycinate 400 mg PO BEDTIME 04/21/23 Pyridoxine HCl [Vitamin B-6] 500 mg PO BEDTIME 04/21/23 Theanine [l-Theanine] 400 cap PO BEDTIME 04/21/23 Physician Discharge Instructions: Please continue with plan of care/inpatient hospice. Followup: NONE,NONE [Primary Care Provider] -
[2023-05-02] MEDS: COLLAGENASE 30 GM OINTMENT TOP SCH (11:20)
[2023-05-02] MEDS: HYDROMORPHONE HCL 1 MG/ML INJ IV PRN ×2 (11:21→15:41)
[2023-05-03 12:41] VITALS: BP 147/75; TEMP 98.4
[2023-05-03 12:59] VITALS: O2SAT 98
[2023-05-03 14:41] VITALS: BMI 59.2
== END 2023-05-02 17:55 | disposition hospice, inpatient (51) | DRG 853 ==
LOC: ER 19:42 → ERHOLD 04-21 00:05 → 2ND 04-21 00:52 → 3RD-ICU 04-30 21:29
PROVIDERS: ADMIT Internal Medicine Sleep Medicine; ATTEND Internal Medicine
PROC: 0T9B70Z Drainage of Bladder with Drainage Device, Via Natural or Artificial Opening (ICD-10-PCS; 2023-04-21)
PROC: 5A09557 Assistance with Respiratory Ventilation, Greater than 96 Consecutive Hours, Continuous Positive Airway Pressure (ICD-10-PCS; 2023-04-22)
PROC: 0JBR0ZZ Excision of Left Foot Subcutaneous Tissue and Fascia, Open Approach (ICD-10-PCS; principal; 2023-04-24 07:30)
PROC: 5A0945A Assistance with Respiratory Ventilation, 24-96 Consecutive Hours, High Flow/Velocity Cannula (ICD-10-PCS; 2023-04-30)
PROC: 02HV33Z Insertion of Infusion Device into Superior Vena Cava, Percutaneous Approach (ICD-10-PCS; 2023-04-30)
DX: A41.02 Sepsis due to Methicillin resistant Staphylococcus aureus (principal); J96.21 Acute and chronic respiratory failure with hypoxia; J96.22 Acute and chronic respiratory failure with hypercapnia; E11.52 Type 2 diabetes mellitus with diabetic peripheral angiopathy with gangrene; Z68.44 Body mass index [BMI] 60.0-69.9, adult; L97.429 Non-pressure chronic ulcer of left heel and midfoot with unspecified severity; L03.116 Cellulitis of left lower limb; M86.8X7 Other osteomyelitis, ankle and foot; E66.2 Morbid (severe) obesity with alveolar hypoventilation; I50.32 Chronic diastolic (congestive) heart failure; E87.29 Other acidosis; I11.0 Hypertensive heart disease with heart failure; E11.69 Type 2 diabetes mellitus with other specified complication; E11.621 Type 2 diabetes mellitus with foot ulcer; I27.20 Pulmonary hypertension, unspecified; M81.0 Age-related osteoporosis without current pathological fracture; I48.91 Unspecified atrial fibrillation; T45.516A Underdosing of anticoagulants, initial encounter; Z78.1 Physical restraint status; Z88.1 Allergy status to other antibiotic agents; Z88.5 Allergy status to narcotic agent; Z88.0 Allergy status to penicillin; Z88.8 Allergy status to other drugs, medicaments and biological substances; Z51.5 Encounter for palliative care; Z85.43 Personal history of malignant neoplasm of ovary; Z79.84 Long term (current) use of oral hypoglycemic drugs; Z79.02 Long term (current) use of antithrombotics/antiplatelets; Z79.01 Long term (current) use of anticoagulants; Z79.899 Other long term (current) drug therapy; Z90.710 Acquired absence of both cervix and uterus; Z91.138 Patient's unintentional underdosing of medication regimen for other reason; Z91.148 Patient's other noncompliance with medication regimen for other reason
CPT/HCPCS: 36415; 36569; 36600; 71045; 80048; 80053; 80076; 80202; 82805; 82947; 83036; 83605; 83735; 83880; 84145; 84484; 85025; 87040; 87070; 87075; 87077; 87186; 87205; 93005; 93306; 94660; 94760; 97110; 97161; 97530; 99284; J0690; J0692; J1120; J1170; J1650; J1815; J1940; J2001; J2270; J2405; J2704; J2920; J3010; J3411; J3590; J7030; J7040; J7050; J7512; J7605; P9047

== ENCOUNTER 2023-05-02 18:03 | Inpatient (IN) | payer OTHER ==
[2023-05-02] MEDS ORDERED: HYDROMORPHONE HCL 2 MG/ML inj IV PRN (18:10)
[2023-05-02] MEDS ORDERED: LORazepam 2 MG/ML VIAL IV PRN ×2 (18:12→19:00)
[2023-05-02] MEDS ORDERED: ONDANSETRON 4 MG/2 ML VIAL IV PRN (18:13)
[2023-05-02] MEDS ORDERED: BISACODYL 10 MG RECTAL SUPP PR PRN (18:16)
[2023-05-02] MEDS ORDERED: ACETAMINOPHEN 650MG/RECT SUPP PR PRN (18:16)
[2023-05-02] MEDS ORDERED: SCOPOLAMINE HYDROBROMIDE PATCH TD SCH (18:30)
[2023-05-02] MEDS: HYDROMORPHONE HCL 2 MG/ML inj IV SCH (21:00)
[2023-05-02] MEDS: LORazepam 2 MG/ML VIAL IV SCH (21:00)
[2023-05-03] MEDS: HYDROMORPHONE HCL 2 MG/ML inj IV SCH ×6 (01:00→20:01)
[2023-05-03] MEDS: LORazepam 2 MG/ML VIAL IV SCH ×6 (01:00→20:02)
[2023-05-03] MEDS ORDERED: LORazepam 2 MG/ML VIAL IV PRN (12:23)
[2023-05-03 16:04] VITALS: O2SAT 98; BMI 59.2
[2023-05-03 20:55] VITALS: BP 85/47; TEMP 98.6
== END 2023-05-04 05:36 | disposition expired | DRG 951 ==
LOC: 3RD-ICU 18:03
PROVIDERS: ADMIT Internal Medicine Hematology & Oncology; ATTEND Internal Medicine Hematology & Oncology
DX: Z51.5 Encounter for palliative care (principal)
CPT/HCPCS: J1170